=== PATIENT | male | born 1965 | race Caucasian/White ===

== ENCOUNTER 2020-08-21 08:51 | Outpatient (REF) | payer MEDICAID, SELFPAY ==
[2020-08-21 11:25] LABS: Hematocrit 46.3 % (42-52); Hemoglobin 15.3 g/dl (14.0-18.0); Mean Corpuscular Hemoglobin 29.2 pg (27.0-33.0); Mean Corpuscular Volume 88.4 fL (80-98); Mean Platelet Volume 10.5 fL (9.4-12.4); Platelet Count 277 X10*3/uL (160-400); Red Blood Count 5.24 X10*6/uL (4.60-5.80); Red Cell Distribution Width 12.5 % (11.0-16.0); White Blood Count 7.9 X10*3/uL (4.8-10.8)
[2020-08-21 11:42] LABS: Estimated Average Glucose 111 mg/dL; Hemoglobin A1c % 5.5 %
[2020-08-21 12:10] LABS: Alanine Aminotransferase 49 U/L (0-40); Albumin Level 4.2 g/dL (3.5-5.0); Alkaline Phosphatase 73 U/L (39-117); Anion Gap 14 (12-20); Aspartate Amino Transferase 33 U/L (5-37); Bilirubin Total 0.6 mg/dL (0.0-1.0); Blood Urea Nitrogen 15 mg/dL (9-16); Calcium 9.2 mg/dL (8.4-10.2); Carbon Dioxide 27 mmol/L (22-29); Chloride 103 mmol/L (96-108); Cholesterol 190 mg/dL; Estimated Glomerular Filt Rate > 60; Glucose Fasting 86 mg/dL (60-99); HDL Cholesterol 44 mg/dL; LDL Cholesterol Calculated 120 mg/dl; Potassium 4.6 mmol/L (3.3-5.1); Sodium 139 mmol/L (135-145); Total Protein 7.5 g/dL (6.5-8.0); Triglycerides 130 mg/dL
[2020-08-21 12:22] LABS: Creatinine Urine 160.35 mg/dL; Microalbum/Creatinine Ratio Ur 24.3 ug/mg cr
[2020-08-21 12:35] LABS: Vitamin B12 641 pg/mL (200-900)
[2020-08-21 12:40] LABS: Free T4 (Free Thyroxine) 0.88 ng/dL (0.71-1.85); Prostate Specific Antigen 0.21 ng/mL (<0.05-4.0); Thyroid Stimulating Hormone 1.54 uIU/mL (0.32-4.0); Vitamin D 25-OH Total 33.4 ng/mL (>30)
== END 2020-08-21 08:52 | disposition home or self-care (01) ==
LOC: HO.MANLDS 08:51
PROVIDERS: PCP Internal Medicine; Visit Provider Internal Medicine
DX: I10 Essential (primary) hypertension (principal); E11.9 Type 2 diabetes mellitus without complications; R53.83 Other fatigue; Z12.5 Encounter for screening for malignant neoplasm of prostate
CPT/HCPCS: 36415; 80053; 80061; 82043; 82306; 82533; 82607; 83036; 84153; 84439; 84443; 85027

== ENCOUNTER 2021-06-18 10:19 | Outpatient (REF) | payer MEDICAID, SELFPAY ==
[2021-06-18 14:15] LABS: Alanine Aminotransferase 53 U/L (0-40); Albumin Level 4.2 g/dL (3.5-5.0); Alkaline Phosphatase 72 U/L (39-117); Aspartate Amino Transferase 37 U/L (5-37); Bilirubin Direct 0.2 mg/dL (0.0-0.5); Bilirubin Total 0.7 mg/dL (0.0-1.0); Total Protein 7.9 g/dL (6.5-8.0)
== END 2021-06-18 10:20 | disposition home or self-care (01) ==
LOC: HO.MANLDS 10:19
PROVIDERS: PCP Internal Medicine; Visit Provider Internal Medicine
DX: B35.1 Tinea unguium (principal)
CPT/HCPCS: 36415; 80076

== ENCOUNTER 2022-01-14 14:28 | Outpatient (REF) | payer MEDICAID, SELFPAY ==
[2022-01-14 18:27] LABS: Alanine Aminotransferase 40 U/L (0-40); Albumin Level 4.4 g/dL (3.5-5.0); Alkaline Phosphatase 76 U/L (39-117); Anion Gap 18 (12-20); Aspartate Amino Transferase 33 U/L (5-37); Bilirubin Total 0.4 mg/dL (0.0-1.0); Blood Urea Nitrogen 15 mg/dL (9-16); Calcium 9.2 mg/dL (8.4-10.2); Carbon Dioxide 26 mmol/L (22-29); Chloride 102 mmol/L (96-108); Estimated Average Glucose 105 mg/dL; Estimated Glomerular Filt Rate > 60; Glucose Random 75 mg/dL (60-115); Hemoglobin A1c % 5.3 %; Sodium 142 mmol/L (135-145)
[2022-01-19 10:46] LABS: Testosterone, Total 135 ng/dL (250-1100)
== END 2022-01-14 14:29 | disposition home or self-care (01) ==
LOC: HO.MANLDS 14:28
PROVIDERS: Visit Provider Internal Medicine
DX: R60.0 Localized edema (principal); R53.83 Other fatigue; E11.9 Type 2 diabetes mellitus without complications
CPT/HCPCS: 36415; 80053; 83036; 84403

== ENCOUNTER 2022-01-26 14:07 | Outpatient (REF) | payer MEDICAID, SELFPAY ==
[2022-01-26 18:22] LABS: Prostate Specific Antigen 0.25 ng/mL (<0.05-4.0)
[2022-01-27 23:11] LABS: Follicle Stimulating Hormone 3.4 mIU/mL (1.6-8.0); Lutenizing Hormone 2.9 mIU/mL (1.5-9.3)
[2022-02-03 11:57] LABS: Testosterone, Total 139 ng/dL (250-1100)
== END 2022-01-26 14:08 | disposition home or self-care (01) ==
LOC: HO.MANLDS 14:07
PROVIDERS: Visit Provider Internal Medicine
DX: Z12.5 Encounter for screening for malignant neoplasm of prostate (principal); R79.89 Other specified abnormal findings of blood chemistry
CPT/HCPCS: 36415; 83001; 83002; 84153; 84402; 84403

== ENCOUNTER 2022-04-05 09:13 | Outpatient (REF) | payer MEDICAID, SELFPAY ==
[2022-04-05 11:59] LABS: Estimated Average Glucose 108 mg/dL; Hemoglobin A1C 143.0571 umol/L; Hemoglobin A1c % 5.4 %
[2022-04-05 12:14] LABS: Creatinine Urine 235.94 mg/dL; Microalbum/Creatinine Ratio Ur 6.7 ug/mg cr
[2022-04-05 12:16] LABS: Cholesterol 202 mg/dL; HDL Cholesterol 46 mg/dL; LDL Cholesterol Calculated 125 mg/dl; Triglycerides 155 mg/dL
[2022-04-10 10:19] LABS: Testosterone, Total 257 ng/dL (250-1100)
== END 2022-04-05 09:14 | disposition home or self-care (01) ==
LOC: HO.MANLDS 09:13
PROVIDERS: Visit Provider Internal Medicine
DX: E11.9 Type 2 diabetes mellitus without complications (principal); R79.89 Other specified abnormal findings of blood chemistry
CPT/HCPCS: 36415; 80061; 82043; 83036; 84403

== ENCOUNTER 2022-07-25 07:53 | Outpatient (REF) | payer MEDICAID, SELFPAY ==
[2022-07-25 11:47] LABS: Estimated Average Glucose 108 mg/dL; Hemoglobin A1C 149.7755 umol/L; Hemoglobin A1c % 5.4 %
[2022-07-25 12:22] LABS: Magnesium 1.8 mg/dL (1.6-2.6); Uric Acid 7.6 mg/dL (3.4-7.0)
[2022-07-25 12:23] LABS: Erythrocyte Sedimentation Rate 11 MM/HR (0-15)
[2022-07-25 12:35] LABS: Creatinine Urine 209.69 mg/dL; Microalbum/Creatinine Ratio Ur 16.2 ug/mg cr
[2022-07-25 12:38] LABS: Vitamin B12 676 pg/mL (200-900); Vitamin D 25-OH Total 46.5 ng/mL (>30)
[2022-07-26 17:59] LABS: Lyme Abs Screen <0.90 index
[2022-07-29 16:09] LABS: Vitamin D 25-OH, D2 <4 ng/mL; Vitamin D 25-OH, D3 32 ng/mL; Vitamin D 25-OH, Total 32 ng/mL (30-100)
[2022-07-31 12:50] LABS: Testosterone, Total 249 ng/dL (250-1100)
== END 2022-07-25 07:54 | disposition home or self-care (01) ==
LOC: HO.MANLDS 07:53
PROVIDERS: Visit Provider Internal Medicine
DX: E11.9 Type 2 diabetes mellitus without complications (principal); M25.50 Pain in unspecified joint; R53.83 Other fatigue
CPT/HCPCS: 36415; 82043; 82306; 82607; 83036; 83735; 84403; 84550; 85652; 86617; 86618

== ENCOUNTER 2022-11-16 12:19 | Outpatient (REF) | payer MEDICAID, SELFPAY ==
[2022-11-18 06:49] LABS: DHEA Sulfate 312 mcg/dL (32-279)
== END 2022-11-16 12:20 | disposition home or self-care (01) ==
LOC: HO.MANLDS 12:19
PROVIDERS: Visit Provider Internal Medicine
DX: R79.89 Other specified abnormal findings of blood chemistry (principal)
CPT/HCPCS: 36415; 82627; 84402; 84403

== ENCOUNTER 2023-01-02 09:57 | Outpatient (REF) | payer MEDICAID, SELFPAY ==
[2023-01-06 13:37] LABS: Testosterone, Total 216 ng/dL (250-1100)
== END 2023-01-02 09:58 | disposition home or self-care (01) ==
LOC: HO.MANLDS 09:57
PROVIDERS: Visit Provider Internal Medicine
DX: R79.89 Other specified abnormal findings of blood chemistry (principal)
CPT/HCPCS: 36415; 84403

== ENCOUNTER 2023-01-27 11:32 | Outpatient (REF) | payer MEDICAID, SELFPAY ==
[2023-02-01 12:52] LABS: Testosterone, Total 209 ng/dL (250-1100)
== END 2023-01-27 11:33 | disposition home or self-care (01) ==
LOC: HO.MANLDS 11:32
PROVIDERS: Visit Provider Internal Medicine
DX: R79.89 Other specified abnormal findings of blood chemistry (principal)
CPT/HCPCS: 36415; 84403

== ENCOUNTER 2023-06-14 11:20 | Outpatient (REF) | payer MEDICAID, SELFPAY ==
[2023-06-14 13:10] LABS: MANUAL DIFF FLAG NO
[2023-06-14 13:31] LABS: Basophils Absolute Auto 0.1 X10*3/uL (0.0-0.2); Basophils Percent Auto 0.6 % (0-2); Eosinophils Absolute Auto 0.1 X10*3/uL (0.0-0.4); Eosinophils Percent Auto 0.6 % (0-4); Hematocrit 46.1 % (42.0-52.0); Hemoglobin 15.7 g/dl (14.0-18.0); Imm Gran Abs Auto 0.15 X10*3/uL (0.00-0.03); Imm Gran Pct Auto 1.6 % (0.0-0.4); Lymphocytes Absolute Auto 2.6 X10*3/uL (1.2-4.9); Lymphocytes Percent Auto 28.2 % (20-40); Mean Corpuscular HGB Conc 34.1 g/dl (31.0-36.0); Mean Corpuscular Hemoglobin 29.2 pg (27.0-33.0); Mean Corpuscular Volume 85.8 fL (80.0-98.0); Mean Platelet Volume 9.9 fL (9.4-12.4); Monocytes Absolute Auto 0.7 X10*3/uL (0.1-1.2); Monocytes Percent Auto 7.2 % (2-11); Neutrophils Absolute Auto 5.7 x10*3/uL (2.0-8.3); Neutrophils Percent Auto 61.8 % (45-73); Platelet Count 382 X10*3/uL (160-400); Red Blood Count 5.37 X10*6/uL (4.60-5.80); Red Cell Distribution Width 13.2 % (11.0-16.0); White Blood Count 9.3 X10*3/uL (4.8-10.8)
[2023-06-14 14:01] LABS: Alanine Aminotransferase 50 U/L (0-40); Albumin Level 4.3 g/dL (3.5-5.0); Alkaline Phosphatase 65 U/L (39-117); Anion Gap 13 (12-20); Aspartate Amino Transferase 32 U/L (5-37); Bilirubin Total 0.4 mg/dL (0.0-1.0); Blood Urea Nitrogen 20 mg/dL (9-16); Calcium 9.8 mg/dL (8.4-10.2); Carbon Dioxide 23 mmol/L (22-29); Chloride 105 mmol/L (96-108); Estimated Glomerular Filt Rate > 60; Glucose Random 113 mg/dL (60-115); Magnesium 2.1 mg/dL (1.6-2.6); Potassium 4.7 mmol/L (3.3-5.1); Sodium 136 mmol/L (135-145); Total Protein 8.3 g/dL (6.5-8.0)
[2023-06-14 14:03] LABS: Free T4 (Free Thyroxine) 0.87 ng/dL (0.71-1.85); Thyroid Stimulating Hormone 0.79 uIU/mL (0.32-4.0)
[2023-06-14 14:38] LABS: Folate 9.7 ng/mL (> or = 4.0); Vitamin B12 694 pg/mL (200-900)
[2023-06-14 14:59] LABS: Estimated Average Glucose 103 mg/dL; Hemoglobin A1C 137.3863 umol/L; Hemoglobin A1c % 5.2 % (<6.0)
[2023-06-21 14:48] LABS: Testosterone, Free 31.1 pg/mL (35.0-155.0); Testosterone, Total 251 ng/dL (250-1100)
== END 2023-06-14 11:21 | disposition home or self-care (01) ==
LOC: HO.MANLDS 11:20
PROVIDERS: Visit Provider Internal Medicine
DX: I10 Essential (primary) hypertension (principal); R53.83 Other fatigue; E11.9 Type 2 diabetes mellitus without complications
CPT/HCPCS: 36415; 80053; 82607; 82746; 83036; 83735; 84402; 84403; 84439; 84443; 85025

== ENCOUNTER 2023-07-26 15:49 | Outpatient (REF) | payer MEDICAID, SELFPAY ==
[2023-07-28 18:49] LABS: Lyme Abs Screen <0.90 index
== END 2023-07-26 15:50 | disposition home or self-care (01) ==
LOC: HO.MANLDS 15:49
PROVIDERS: Visit Provider Physician Assistant
DX: T14.8XXA Other injury of unspecified body region, initial encounter (principal); W57.XXXA Bitten or stung by nonvenomous insect and other nonvenomous arthropods, initial encounter
CPT/HCPCS: 36415; 86617; 86618

== ENCOUNTER 2023-10-28 15:31 | Emergency (ER) | payer MEDICAID, SELFPAY ==
--- NOTE | ~2023-10-28 | CT_ITS ---
EXAMINATION: CT ABDOMEN AND PELVIS WITH CONTRAST CLINICAL INFORMATION: Diffuse abdominal pain. COMPARISON: None available. TECHNIQUE: Multidetector volumetric images were obtained from the superior aspect of the liver through the pubic symphysis following administration 85 mL of Omnipaque 350 intravenous contrast. Sagittal and coronal reformatted images were obtained on the technologist's workstation. Oral contrast: Yes This CT examination was performed using dose optimization techniques as appropriate, variously including the following: *Automated exposure control *Adjustment of mA and/or kV according to patient size (this includes techniques or standardized protocols for targeted exams where dose is matched to indication/reason for exam; i.e. extremities or head) *Use of iterative reconstruction technique DLP: 868 mGy-cm FINDINGS: LUNG BASES: The visualized lung bases are unremarkable. LIVER, GALLBLADDER, AND BILIARY TREE: The liver is normal in size, shape, and attenuation. No focal hepatic lesion or biliary ductal dilatation is present. There is a small 2 mm calcification at the margin of the gallbladder fossa which appears to be within the hepatic parenchyma, possibly small granuloma. No appreciable cholelithiasis. The gallbladder is otherwise normal in appearance without gallbladder wall thickening pericholecystic inflammatory changes. PANCREAS: Unremarkable. SPLEEN: Unremarkable. ADRENAL GLANDS: Unremarkable. KIDNEYS AND URETERS: The kidneys are normal in size, shape, and attenuation. No hydronephrosis, hydroureter, or calculi seen. No perinephric stranding. Small subcentimeter foci of cortical hypoattenuation kidneys are too small to characterize, though statistically favored to correspond to simple cysts. No recommended imaging follow-up. BLADDER: Unremarkable. GASTROINTESTINAL TRACT: Stomach, small bowel, and colon are normal in caliber. No bowel wall thickening or surrounding inflammatory changes. Appendix is normal. No intraperitoneal free fluid or free air. ABDOMINAL WALL: Status post umbilical herniorrhaphy with mesh. No bowel involvement. LYMPH NODES: Normal. VASCULAR: Atherosclerotic calcifications are present in the abdominal aorta and iliac arteries. No aneurysmal dilatation. PELVIC VISCERA: The prostate and seminal vesicles are unremarkable. OSSEOUS STRUCTURES: Mild multilevel degenerative disc disease and more pronounced facet arthropathy in the lower lumbar spine. No fractures. Mild osteoarthritis in both hips and SI joints. Enthesopathic spurs at the iliac crests. CT/CT abdomen pelvis w IV con IMPRESSION: No acute intra-abdominal or intrapelvic abnormalities. Fleischner guidelines were followed.
--- NOTE | ~2023-10-28 | XR_ITS ---
EXAMINATION: XR ABDOMEN COMPLETE CLINICAL INDICATION: Constipation COMPARISON: None available. TECHNIQUE: AP supine pelvis radiograph and 2 AP supine radiographs of the abdomen FINDINGS: Scattered bowel gas is noted nondistended small and large bowel segments. No gross free intraperitoneal gas identified. No definitive urolithiasis visualized. Moderate multilevel facet and endplate hypertrophic changes of the lower lumbar spine. Visualized lung bases are clear. Scattered pelvic phleboliths visualized. XR/XR abdomen min 2V IMPRESSION: Normal bowel gas pattern. No evidence of intestinal obstruction.
--- NOTE | 2023-10-28 15:58 | ED_ITS ---
HPI - Abdominal Pain General Chief Complaint: Abdominal Pain Stated Complaint: abd pressure/losing weight/constipated Time Seen by Provider: 10/28/23 17:14 Source: patient, family and RN notes reviewed Mode of arrival: ambulatory Limitations: no limitations History of Present Illness ED Provider: Rossi MARIE narrative: 58-year-old male presents for evaluation of multiple complaints. He reports he has felt constipated for 2 months now. He reports tremors to his abdomen. He reports decreased sleep since August as well Patient reports that he has lost 80 lb since April, 6 months ago He reports he has been seen at [facility] and had CT scan does abdomen on September 13. He also had an MRI if his kidney due to a cyst that was seen He has an appointment with GI coming up on November 12. He has tried laxatives and a Fleet enema at home without improvement in his symptoms Patient also complains he has not been sleeping well No other complaints or concerns at this time Related Data Previous Rx's ?Medication ?Instructions ?Recorded peg 3350-electrolytes 236 240 ml PO Q10M PRN constipation 10/28/23 gram-22.74 gram-6.74 gram-5.86 #4,000 mL gram solution (Golytely) polyethylene glycol 3350 17 17 g PO DAILY 2 weeks #238 grams 10/28/23 gram/dose oral powder (Miralax) sodium phosphates 19 gram-7 230 ml IN ONCE #230 mL 10/28/23 gram/197 mL enema (Fleet Enema Extra) Allergies Allergy/AdvReac Type Severity Reaction Status Date / Time No Known Allergies Allergy Verified 10/28/23 16:01 Review of Systems Constitutional: Denies body ache(s), Denies chills, Denies fever(s) and Denies headache(s) Eyes: Denies blurry vision Denies vertigo, Denies dizziness and Denies headache(s) Cardiovascular: Denies chest pain and Denies dyspnea Respiratory: Denies cough and Denies dyspnea Gastrointestinal: Reports abdominal pain, Reports constipation, Reports GI cramping, Denies nausea and Denies vomiting Musculoskeletal: Denies back pain Skin/Breast: Denies rash Denies vertigo, Denies dizziness and Denies headache(s) PMFSH Social History Social History Advance Directives: No Advance Directives Information Provided: No Do you have a plan to hurt others: No Plan Physical Exam ED Vital Signs: Vital Signs - 24 hr 10/28/23 15:59 10/28/23 16:25 10/28/23 17:55 Temperature 97.8 F 97.6 F 97.7 F Pulse Rate 80 75 78 Respiratory Rate 18 21 H 16 Blood Pressure 151/95 H 154/85 H 159/93 H Pulse Oximetry 99 97 99 Oxygen Delivery Method Room Air Room Air Room Air 10/28/23 18:58 10/28/23 21:31 10/28/23 23:15 Temperature 97.7 F 98.7 F 98.4 F Pulse Rate 80 64 64 Respiratory Rate 22 H 20 16 Blood Pressure 176/96 H 158/101 H 161/94 H Pulse Oximetry 98 98 97 Oxygen Delivery Method Room Air Room Air Room Air BMI result Body Mass Index 35.1 Const General: healthy appearing, comfortable, no acute distress, alert and awake Nutritional Appearance: well nourished Orientation/consciousness: patient oriented x3 HENMT Head: Yes normocephalic and Yes atraumatic Eyes Eyelids: Yes eyelids normal Conjunctivae: conjunctivae normal Sclerae: sclerae normal Corneas: corneas normal Pupils: Equal, round and reactive pupils present EOM: EOMs intact bilaterally Neck Neck: Yes full ROM Resp Effort & Inspection: normal respiratory effort, able to speak in complete sentences and not labored GI Other: Soft, obese, nontender abdomen Inspection: No distended Palpation (GI): Soft to palpation, not firm, nontender, no guarding and not rigid Auscultation: normoactive bowel sounds Skin General skin exam: elasticity normal Neuro General: patient oriented x3 Cranial nerves: Yes Equal, round and reactive pupils present and Yes Bilaterally intact EOM present Cognition (Neuro): normal cognition Extrem Other: Moving all extremities well without any obvious deformities Course Course Course Narrative: This is a Rapid Medical Exam performed in triage by Keena Flores PA-C. Full HPI, ROS and PE to be performed by primary ED provider. 58 year-old M w/ PMHx presenting to the ED c/o bowels stopped working 08/24 w/constipation & weight loss (80 lbs since April) unintentionally. Last BM 1 week ago, is still passing gas but w/difficulty. reports abdominal pain/bloating, w/nausea with abdominal spasming. States has been seen at [facility] (3wks ago) & [facility] for same sx had w/u and CT which were negative PE: abdomen soft w/RUQ ttp. +appreciable abdominal spasming in triage Plan: Labs, UA, KUB Reevaluation(s) Reevaluation #1: Patient change his mind opted to proceed with CT scan with oral contrast Time: 18:36 Medical Decision Making Medical Decision Making [facility] Narrative: 58-year-old male presents for evaluation of constipation, weight loss and insomnia. Patient's physical exam is reassuring, he is nontender, nondistended. His vital signs are stable, his labs show no concerning abnormalities. He had an x-ray that shows moderate constipation but nonobstructive bowel gas pattern. I recommended CT scan of the abdomen pelvis with oral contrast. The patient is reluctant to have this performed. He seems somewhat paranoid about drinking oral contrast. However he has no pain, so infectious processes less likely, he is not obstructed despite his constipation. He does not wish to have the CT scan performed, he does have GI follow-up already scheduled and we can discharge the patient with laxatives and bowel regimen Differential Diagnosis Differential Diagnoses: The differential diagnosis associated with the presentation includes Constipation Small-bowel obstruction Colonic mass Dehydration Anxiety Lab Data [facility] Lab Attestation statement: I reviewed the patient's lab results. Please see medical decision making above 10/28/23 16:32 10/28/23 16:32 Labs: Lab Results 10/28/23 10/28/23 Range/Units 16:16 16:32 WBC 8.1 (4.8-10.8) X10*3/uL RBC 5.00 (4.60-5.80) X10*6/uL Hgb 15.2 (14.0-18.0) g/dl Hct 42.8 (42.0-52.0) % MCV 85.6 (80.0-98.0) fL MCH 30.4 (27.0-33.0) pg MCHC 35.5 (31.0-36.0) g/dl RDW 13.1 (11.0-16.0) % Plt Count 269 D (160-400) X10*3/uL MPV 9.6 (9.4-12.4) fL Immature Gran % (Auto) 0.4 (0.0-0.4) % Neut % (Auto) 53.9 (45-73) % Lymph % (Auto) 31.4 (20-40) % [place] % (Auto) 10.7 (2-11) % Eos % (Auto) 3.0 (0-4) % Baso % (Auto) 0.6 (0-2) % Lymph # (Auto) 2.6 (1.2-4.9) X10*3/uL [place] # (Auto) 0.9 (0.1-1.2) X10*3/uL Eos # (Auto) 0.2 (0.0-0.4) X10*3/uL Baso # (Auto) 0.1 (0.0-0.2) X10*3/uL Abs Immat Gran (auto) 0.03 (0.00-0.03) X10*3/uL Absolute Neuts (auto) 4.4 (2.0-8.3) x10*3/uL Absolute Nucleated RBC 0.000 (0.0-0.012) X10*3/uL Nucleated RBC % (auto) 0.0 (0.0-0.2) /100WBC Sodium 136 (135-145) mmol/L Potassium 3.9 (3.3-5.1) mmol/L Chloride 102 (96-108) mmol/L Carbon Dioxide 21 L (22-29) mmol/L Anion Gap 17 (12-20) BUN 12 (9-16) mg/dL Creatinine 1.09 (0.5-1.4) mg/dL Estim Creat Clear Calc 102.1 Estimated GFR > 60 Random Glucose 88 (60-115) mg/dL Calcium 9.9 (8.4-10.2) mg/dL Magnesium 2.0 (1.6-2.6) mg/dL Total Bilirubin 0.6 (0.0-1.0) mg/dL Direct Bilirubin 0.2 (0.0-0.5) mg/dL AST 21 (5-37) U/L ALT 16 (0-40) U/L Alkaline Phosphatase 63 (39-117) U/L Total Protein 7.6 (6.5-8.0) g/dL Albumin 4.3 (3.5-5.0) g/dL Lipase 14 (8-78) U/L Urine Color Yellow Urine Appearance Clear Urine pH 5.5 (5.0-9.0) Ur Specific [place] 1.015 (1.005-1.025) Urine Protein Negative (Neg-Trace) mg/dL Urine Glucose (UA) Negative (Negative) mg/dL Urine Ketones 15 (Negative) mg/dL Urine Blood Negative (Negative) Urine Nitrite Negative (Negative) Ur Leukocyte Esterase Negative (Negative) Independent Interpretation I performed an independent interpretation of an: Plain X-Ray (Moderate constipation without obstruction) Radiology Impression Discussion of test interpretation with radiology: I have reviewed the radiologist's reading. Radiologist Impression: XR/XR abdomen min 2V IMPRESSION: Normal bowel gas pattern. No evidence of intestinal obstruction. CT/CT abdomen pelvis w IV con IMPRESSION: No acute intra-abdominal or intrapelvic abnormalities. Fleischner guidelines were followed. Medications Administered Discontinued Medications Generic Name Dose Route Start Last Admin Trade Name Freq PRN Reason Stop Dose Admin Diatrizoate Meglum/Diatrizoate Sod 30 ml 10/28/23 19:07 10/28/23 19:08 Diatrizoate Meglumine, Sodium 30 Ml Solution PO 10/28/23 19:08 30 ml ONCE ONE Administration Iohexol 85 ml 10/28/23 20:57 10/28/23 20:58 Iohexol 350 Mg/Ml 100 Ml Infus..Btl IV 10/28/23 20:58 85 ml ONCE ONE Administration Discharge Plan Discharge Clinical Impression: Constipation Patient Disposition: Home, Self-Care Instructions: Constipation (ED), High Fiber Diet (ED) Additional Instructions: Your blood work did not show any concerning abnormalities. Your x-ray showed constipation without evidence of obstruction. I recommend that you increase fluid intake, increase fiber intake in your diet. I recommend that you take MiraLax every night for the next 2 weeks. Take lactulose, you may drink 8 oz every 5 minutes until you start to have bowel movements. You should discontinue lactulose once your stool becomes clear Follow-up with your GI doctor as planned, return for new or worsening symptoms Prescriptions: New Fleet Enema Extra 19-7 gram/197 mL enema 230 ml IN ONCE Qty: 230 0RF polyethylene glycol 3350 [Miralax] 17 gram/dose powder 17 g PO DAILY 14 Days Qty: 238 0RF peg 3350-electrolytes [Golytely] 236-22.74-6.74 -5.86 gram recon soln 240 ml PO Q10M PRN (Reason: constipation) Qty: 4000 0RF Rx Instructions: until fecal effluent is clear Print Language: Bots[place]an
[2023-10-28 15:59] VITALS: BP 151/95; PULSE 80; RESP 18; TEMP 36.6; O2SAT 99; BMI 35.1
[2023-10-28 16:25] VITALS: BP 154/85; PULSE 75; RESP 21; TEMP 36.4; O2SAT 97
[2023-10-28 16:37] LABS: MANUAL DIFF FLAG NO
[2023-10-28 16:38] LABS: Basophils Absolute Auto 0.1 X10*3/uL (0.0-0.2); Basophils Percent Auto 0.6 % (0-2); Eosinophils Absolute Auto 0.2 X10*3/uL (0.0-0.4); Hematocrit 42.8 % (42.0-52.0); Hemoglobin 15.2 g/dl (14.0-18.0); Imm Gran Abs Auto 0.03 X10*3/uL (0.00-0.03); Imm Gran Pct Auto 0.4 % (0.0-0.4); Lymphocytes Absolute Auto 2.6 X10*3/uL (1.2-4.9); Lymphocytes Percent Auto 31.4 % (20-40); Mean Corpuscular HGB Conc 35.5 g/dl (31.0-36.0); Mean Corpuscular Hemoglobin 30.4 pg (27.0-33.0); Mean Corpuscular Volume 85.6 fL (80.0-98.0); Mean Platelet Volume 9.6 fL (9.4-12.4); Monocytes Absolute Auto 0.9 X10*3/uL (0.1-1.2); Monocytes Percent Auto 10.7 % (2-11); Neutrophils Absolute Auto 4.4 x10*3/uL (2.0-8.3); Neutrophils Percent Auto 53.9 % (45-73); Platelet Count 269 X10*3/uL (160-400); Red Cell Distribution Width 13.1 % (11.0-16.0); White Blood Count 8.1 X10*3/uL (4.8-10.8)
[2023-10-28 16:54] LABS: Alanine Aminotransferase 16 U/L (0-40); Albumin Level 4.3 g/dL (3.5-5.0); Alkaline Phosphatase 63 U/L (39-117); Anion Gap 17 (12-20); Aspartate Amino Transferase 21 U/L (5-37); Bilirubin Direct 0.2 mg/dL (0.0-0.5); Bilirubin Total 0.6 mg/dL (0.0-1.0); Blood Urea Nitrogen 12 mg/dL (9-16); Calcium 9.9 mg/dL (8.4-10.2); Carbon Dioxide 21 mmol/L (22-29); Chloride 102 mmol/L (96-108); Creatinine Clr Calc Pharmacy 102.1; Estimated Glomerular Filt Rate > 60; Glucose Random 88 mg/dL (60-115); Lipase 14 U/L (8-78); Potassium 3.9 mmol/L (3.3-5.1); Sodium 136 mmol/L (135-145); Total Protein 7.6 g/dL (6.5-8.0)
--- NOTE | 2023-10-28 17:03 | PC.NURSE ---
Addendum entered by Viridiana Rosas LPN 10/28/23 17:13: Pt also reports that he knows what is causing his symptoms and erratic movement, sts that he was told by his medium that he is infected with a toxic microbe pt was unable to elaborate further. Original Note: pt presents to the exam room with mother at bedside. pt reports decreased frequency/quantity of BMs since August 24. pt sts that he is able to have bowel movements if he forces them . He reports that he is able to pass some gas . Pt describes pain as burning, pressure in nature, 2/10 pain scale. Pt sts that he noticed some changes in bowel patterns after starting HRT. pt sts he is no longer taking these hormones- per claims history pt was using topical testosterone, last prescribed 03/03/23. [facility] (unsure of exact date). Of note, pt abdomen can be seen moving erratically, which pt sts is disturbing his sleep. 20G IV placed in L- medial AC, labs pending, pt to have XR of abdomen and pelvis. care ongoing
[2023-10-28 17:12] LABS: Appearance Urine Clear; Color Urine Yellow; Glucose Urine UA Negative (Negative); Leukocyte Esterase Urine Negative (Negative); Nitrite Urine Negative (Negative); PH 5.5 (5.0-9.0); Specific Gravity - Urine 1.015 (1.005-1.025); Urine Blood Negative (Negative); Urine Ketones 15 mg/dL (Negative); Urine Protein Negative (Neg-Trace)
[2023-10-28 17:55] VITALS: BP 159/93; PULSE 78; RESP 16; TEMP 36.5; O2SAT 99
[2023-10-28 18:58] VITALS: BP 176/96; PULSE 80; RESP 22; TEMP 36.5; O2SAT 98
[2023-10-28] MEDS: Diatrizoate Meglumine, Sodium 30 ML SOLUTION PO (19:08)
[2023-10-28] MEDS: iohexoL 350 MG/ML 100 ML INFUS..BTL 85 ML IV (20:58)
[2023-10-28 21:31] VITALS: BP 158/101; PULSE 64; RESP 20; TEMP 37.1; O2SAT 98
[2023-10-28 23:15] VITALS: BP 161/94; PULSE 64; RESP 16; TEMP 36.9; O2SAT 97
[2023-10-29 06:58] VITALS: BP 161/94; PULSE 64; RESP 16; TEMP 36.9; O2SAT 97
== END 2023-10-29 | disposition home or self-care (01) ==
PROVIDERS: Physician Assistant; Emergency Provider Emergency Medicine; PCP Internal Medicine
DX: K59.00 Constipation, unspecified (principal); R10.11 Right upper quadrant pain
CPT/HCPCS: 36415; 74019; 74177; 80048; 80076; 81003; 83690; 83735; 85025; 99284; Q9967

== ENCOUNTER 2024-09-03 13:56 | Emergency (ER) | payer MEDICAID, SELFPAY ==
--- NOTE | ~2024-09-03 | XR_ITS ---
CLINICAL HISTORY: pain --- Additional Notes or Special Instructions: constipation 1 view abdomen Comparison: None Findings: Low lung volumes with mild bibasilar atelectasis/pneumonitis of the partially imaged lung bases. Likely mild cardiomegaly. No small bowel dilatation or small bowel obstruction in the imaged abdomen. Change in caliber of the partly gaseous distended large intestine of the favored to represent imaged sigmoid colon in the midabdomen. Otherwise, moderate stool burden, particularly distally. Phleboliths are noted in the pelvis. Degenerative changes include imaged hips and imaged spine bifrontal radiographs. Also likely enthesopathy including left iliac wing. IMPRESSION: 1. No small bowel obstruction. 2. Mild gaseous distention of imaged sigmoid colon this nonspecific by radiographs. 3. Mild bibasilar atelectasis. This document has been electronically signed by: Rico San MD on 09/03/2024 21:26:11
[2024-09-03 14:13] VITALS: BP 208/101; PULSE 75; RESP 18; TEMP 37.1; O2SAT 99; BMI 33.8
--- NOTE | 2024-09-03 14:14 | ECG_ITS ---
Test Reason : GP Blood Pressure : */* mmHG Vent. Rate : 74 BPM Atrial Rate : 74 BPM P-R Int : 138 ms QRS Dur : 74 ms QT Int : 368 ms P-R-T Axes : 12 9 32 degrees QTcB Int : 408 ms Normal sinus rhythm Normal ECG No previous ECGs available Referred By: Mike Richey Electronically Signed By: DAVE HOFFMAN
--- NOTE | 2024-09-03 14:15 | ED_ITS ---
HPI - General Adult General Chief complaint: General Medical Stated complaint: Says lot of symptoms? Time Seen by Provider: 09/03/24 20:39 Source: patient Limitations: no limitations History of Present Illness ED Provider: Tashia Mendez PA-C HPI narrative: 59-year-old male with a history of depression and constipation, presents with numerous complaints that have been ongoing for 1-1/2 years. Patient states he continues to have difficulty having regular bowel movements. He complains that he can not see well, he has ringing in his ears, he has a insomnia, he feels as if his cognition is declining, he has dry mouth with facial flushing, intermittent bilateral shoulder pain, vague nausea and abdominal discomfort that has generalized, ?my bones feel thinner?, to name a few of his concerns. Patient also thinks that he has an STD, specifically HIV and syphilis. To note, the patient was tested for HIV and was negative. In regard to his concerned for syphilis, the patient has never had any genital lesions, penile discharge, pain with urination, testicular pain/swelling or redness. The patient is also not sexually active. I asked the patient if he is suicidal, he denies. Related Data Previous Rx's ?Medication ?Instructions ?Recorded peg 3350-electrolytes 236 240 ml PO Q10M PRN constipation 10/28/23 gram-22.74 gram-6.74 gram-5.86 #4,000 mL gram solution (Golytely) polyethylene glycol 3350 17 17 g PO DAILY 2 weeks #238 grams 10/28/23 gram/dose oral powder (Miralax) sodium phosphates 19 gram-7 230 ml UT ONCE #230 mL 10/28/23 gram/197 mL enema (Fleet Enema Extra) Allergies Allergy/AdvReac Type Severity Reaction Status Date / Time No Known Allergies Allergy Verified 09/03/24 14:17 Physical Exam ED Vital Signs: Vital Signs - 24 hr 09/03/24 14:13 09/03/24 19:33 09/03/24 22:09 Temperature 98.8 F 98 F 97.8 F Pulse Rate 75 67 61 Respiratory Rate 18 18 18 Blood Pressure 208/101 H 182/99 H 174/83 H Pulse Oximetry 99 100 100 Oxygen Delivery Method Room Air Room Air Room Air BMI result Body Mass Index 33.8 Course Course Course Narrative: YUE, this is a rapid medical exam performed by Felix Richey please refer to primary provider for complete H&P- 59-year-old male presents for evaluation of multiple complaints. He reports a history of hypertension. He reports abdominal pain with constipation, insomnia, nausea and vomiting. He reports recent negative HIV testing but he is still concerned that he has HIV. Plan for labs Medical Decision Making Medical Decision Making MDM Narrative: 59-year-old male with a history of depression and constipation, presents with numerous complaints that have been ongoing for 1-1/2 years. Patient states he continues to have difficulty having regular bowel movements. He complains that he can not see well, he has ringing in his ears, he has a insomnia, he feels as if his cognition is declining, he has dry mouth with facial flushing, intermittent bilateral shoulder pain, vague nausea and abdominal discomfort that has generalized, ?my bones feel thinner?, to name a few of his concerns. Patient also thinks that he has an STD, specifically HIV and syphilis. To note, the patient was tested for HIV and was negative. In regard to his concerned for syphilis, the patient has never had any genital lesions, penile discharge, pain with urination, testicular pain/swelling or redness. The patient is also not sexually active. I asked the patient if he is suicidal, he denies. Problem: Depression and constipation History: Per patient I have considered the following differential diagnoses: SI, HI, decompensated psychiatric illness, drug/alcohol intoxication Plan: Patient is here with a wide range of complaints, all of which should be managed as an outpatient. The patient is here with the his mother, I do feel he has to be clinically depressed. I will be sending him with resources for outpatient counseling and therapy. He does not require an emergent care team consult, he is not suicidal. Basic screening labs including an ethanol and drug screen were obtained from triage, and a urinalysis, his labs are normal. Adding on a KUB to assess his stool burden. I have independently reviewed the following tests: Labs: No leukocytosis, not anemic, no electrolyte abnormality, U tox negative, ethanol negative, urine not infected KUB:IMPRESSION: 1. No small bowel obstruction. 2. Mild gaseous distention of imaged sigmoid colon this nonspecific by radiographs. 3. Mild bibasilar atelectasis. Lab Data 09/03/24 16:01 09/03/24 16:01 Labs: Lab Results 09/03/24 09/03/24 09/03/24 Range/Units 16:01 16:06 16:07 WBC 8.7 (4.8-10.8) X10*3/uL RBC 5.40 (4.60-5.80) X10*6/uL Hgb 16.2 (14.0-18.0) g/dl Hct 46.4 (42.0-52.0) % MCV 85.9 (80.0-98.0) fL MCH 30.0 (27.0-33.0) pg MCHC 34.9 (31.0-36.0) g/dl RDW 13.1 (11.0-16.0) % Plt Count 249 (160-400) X10*3/uL MPV 9.1 L (9.4-12.4) fL Immature Gran % (Auto) 0.3 (0.0-0.4) % Neut % (Auto) 53.5 (45-73) % Lymph % (Auto) 37.0 (20-40) % [place] % (Auto) 7.9 (2-11) % Eos % (Auto) 0.8 (0-4) % Baso % (Auto) 0.5 (0-2) % Lymph # (Auto) 3.2 (1.2-4.9) X10*3/uL [place] # (Auto) 0.7 (0.1-1.2) X10*3/uL Eos # (Auto) 0.1 (0.0-0.4) X10*3/uL Baso # (Auto) 0.0 (0.0-0.2) X10*3/uL Abs Immat Gran (auto) 0.03 (0.00-0.03) X10*3/uL Absolute Neuts (auto) 4.6 (2.0-8.3) x10*3/uL Absolute Nucleated RBC 0.000 (0.0-0.012) X10*3/uL Nucleated RBC % (auto) 0.0 (0.0-0.2) /100WBC Sodium 140 (135-145) mmol/L Potassium 4.6 (3.3-5.1) mmol/L Chloride 104 (96-108) mmol/L Carbon Dioxide 29 (22-29) mmol/L Anion Gap 12 (12-20) BUN 19 H (9-16) mg/dL Creatinine 0.93 (0.5-1.4) mg/dL Estim Creat Clear Calc 112.7 Estimated GFR > 60 Random Glucose 86 (60-115) mg/dL Calcium 9.4 (8.4-10.2) mg/dL Magnesium 2.0 (1.6-2.6) mg/dL Total Bilirubin 0.5 (0.0-1.0) mg/dL AST 22 (5-37) U/L ALT 23 (0-40) U/L Alkaline Phosphatase 71 (39-117) U/L Total Creatine Kinase 88 (38-174) U/L Troponin I High Sens < 2.7 (<3.5-35.0) ng/L Total Protein 7.6 (6.5-8.0) g/dL Albumin 4.5 (3.5-5.0) g/dL Lipase 27 (8-78) U/L TSH 1.67 (0.32-4.0) uIU/mL Urine Color Yellow Urine Appearance Clear Urine pH 6.5 (5.0-9.0) Ur Specific [place] 1.025 (1.005-1.025) Urine Protein Negative (Neg-Trace) mg/dL Urine Glucose (UA) Negative (Negative) mg/dL Urine Ketones Trace (Negative) mg/dL Urine Blood Negative (Negative) Urine Nitrite Negative (Negative) Ur Leukocyte Esterase Negative (Negative) Urine RBC 0-2 (0-2) /HPF Urine WBC 0-5 (0-5) /HPF Ur Squamous Epith Cells 0-2 (0-2) /HPF Urine Bacteria None Seen (None Seen) Hyaline Casts 0-2 (0-2) /LPF Urine Opiates Screen Not Detected (Not Detect) Ur Buprenorphine Scrn Not Detected (Not Detect) ng/mL Ur Oxycodone Screen Not Detected (Not Detect) ng/mL Urine Methadone Screen Not Detected (Not Detect) ng/mL Urine Fentanyl Screen Not Detected (Not Detect) Ur Barbiturates Screen Not Detected (Not Detect) Ur Phencyclidine Scrn Not Detected (Not Detect) Ur Amphetamines Screen Not Detected (Not Detect) U Benzodiazepines Scrn Not Detected (Not Detect) Urine Cocaine Screen Not Detected (Not Detect) U Marijuana (THC) Screen Not Detected (Not Detect) Ethyl Alcohol < 10 mg/dL Influenza Type A (PCR) NEGATIVE (Negative) Influenza Type B (PCR) NEGATIVE (Negative) RSV RNA Qual (PCR) NEGATIVE (Negative) SARS-CoV-2 RNA (RT-PCR) NEGATIVE (Negative) Discharge Plan Discharge Clinical Impression: Constipation Patient Disposition: Home, Self-Care Instructions: Constipation (ED) Additional Instructions: All of your screening labs including a cardiac enzyme and thyroid function were normal. You were tested for influenza RSV and COVID, the viral panel was negative. Your urine is not infected. We did a drug toxicology screen that was negative. The x-ray revealed that you are constipated. See home care instructions. Use [id number] Colace, this is a stool softener, twice a day. Purchase [id number] MiraLax, take it 4 to 5 times a day, until you begin having multiple large volume bowel movements. Once you have cleared your stool burden, you need to stay on a bowel regimen to help prevent constipation. Perhaps use the Colace once a day, in the MiraLax once a day. You need to follow up with your primary care provider for further outpatient workup, in regard to your numerous, Chronic medical complaints. I have also provided you with a list of outpatient resources for counseling and therapy, you were depression may be playing a role in all of your medical related complaints. Prescriptions: No Action Fleet Enema Extra 19-7 gram/197 mL enema 230 ml UT ONCE Qty: 230 0RF polyethylene glycol 3350 [Miralax] 17 gram/dose powder 17 g PO DAILY 14 Days Qty: 238 0RF peg 3350-electrolytes [Golytely] 236-22.74-6.74 -5.86 gram recon soln 240 ml PO Q10M PRN (Reason: constipation) Qty: 4000 0RF Rx Instructions: until fecal effluent is clear Interventions: ED Discharge Assessment Last Done: 09/03/24 22:55 Discharge Date/Time: 09/03/24 22:55 Print Language: Bangladeshi
[2024-09-03 16:07] LABS: MANUAL DIFF FLAG NO
[2024-09-03 16:08] LABS: Basophils Percent Auto 0.5 % (0-2); Eosinophils Absolute Auto 0.1 X10*3/uL (0.0-0.4); Eosinophils Percent Auto 0.8 % (0-4); Hematocrit 46.4 % (42.0-52.0); Hemoglobin 16.2 g/dl (14.0-18.0); Imm Gran Abs Auto 0.03 X10*3/uL (0.00-0.03); Imm Gran Pct Auto 0.3 % (0.0-0.4); Lymphocytes Absolute Auto 3.2 X10*3/uL (1.2-4.9); Mean Corpuscular HGB Conc 34.9 g/dl (31.0-36.0); Mean Corpuscular Volume 85.9 fL (80.0-98.0); Mean Platelet Volume 9.1 fL (9.4-12.4); Monocytes Absolute Auto 0.7 X10*3/uL (0.1-1.2); Monocytes Percent Auto 7.9 % (2-11); Neutrophils Absolute Auto 4.6 x10*3/uL (2.0-8.3); Neutrophils Percent Auto 53.5 % (45-73); Platelet Count 249 X10*3/uL (160-400); Red Cell Distribution Width 13.1 % (11.0-16.0); White Blood Count 8.7 X10*3/uL (4.8-10.8)
[2024-09-03 16:17] LABS: Appearance Urine Clear; Color Urine Yellow; Glucose Urine UA Negative (Negative); Leukocyte Esterase Urine Negative (Negative); Nitrite Urine Negative (Negative); PH 6.5 (5.0-9.0); Specific Gravity - Urine 1.025 (1.005-1.025); Urine Blood Negative (Negative); Urine Ketones Trace mg/dL (Negative); Urine Protein Negative (Neg-Trace)
[2024-09-03 16:22] LABS: Bacteria Urine None Seen (None Seen); Hyaline Casts Urine 0-2 /LPF (0-2); RBC Urine 0-2 /HPF (0-2); Squamous Epithelial Cell Urine 0-2 /HPF (0-2); WBC Urine 0-5 /HPF (0-5)
[2024-09-03 16:23] LABS: Amphetamine Screen Urine Not Detected (Not Detect); Barbiturates, Urine Not Detected (Not Detect); Benzodiazepines Screen Urine Not Detected (Not Detect); Buprenorphine Scr Not Detected (Not Detect); Cannabinoid Screen Urine Not Detected (Not Detect); Cocaine Screen Urine Not Detected (Not Detect); Fentanyl, urine Not Detected (Not Detect); Methadone Screen, Urine Not Detected (Not Detect); Opiate Screen Urine Not Detected (Not Detect); Oxycodone Screen Urine Not Detected (Not Detect); Phencyclidine Screen Urine Not Detected (Not Detect)
[2024-09-03 16:27] LABS: Ethanol < 10 mg/dL
[2024-09-03 16:43] LABS: Alanine Aminotransferase 23 U/L (0-40); Albumin Level 4.5 g/dL (3.5-5.0); Alkaline Phosphatase 71 U/L (39-117); Anion Gap 12 (12-20); Aspartate Amino Transferase 22 U/L (5-37); Bilirubin Total 0.5 mg/dL (0.0-1.0); Blood Urea Nitrogen 19 mg/dL (9-16); Calcium 9.4 mg/dL (8.4-10.2); Carbon Dioxide 29 mmol/L (22-29); Chloride 104 mmol/L (96-108); Creatinine Clr Calc Pharmacy 112.7; Estimated Glomerular Filt Rate > 60; Glucose Random 86 mg/dL (60-115); Influenza A PCR NEGATIVE (Negative); Influenza B PCR NEGATIVE (Negative); Lipase 27 U/L (8-78); Potassium 4.6 mmol/L (3.3-5.1); Resp Syncy Virus RNA Qual PCR NEGATIVE (Negative); SARS COV2 PCR INHOUSE NEGATIVE (Negative); Sodium 140 mmol/L (135-145); Total Protein 7.6 g/dL (6.5-8.0); Troponin-I High Sensitivity < 2.7 ng/L (<3.5-35.0)
[2024-09-03 16:51] LABS: TSH reflex Free T4 1.67 uIU/mL (0.32-4.0)
[2024-09-03 19:33] VITALS: BP 182/99; PULSE 67; RESP 18; TEMP 36.6; O2SAT 100
[2024-09-03 22:09] VITALS: BP 174/83; PULSE 61; RESP 18; TEMP 36.6; O2SAT 100
[2024-09-03 22:55] VITALS: BP 174/83; PULSE 61; RESP 18; TEMP 36.6; O2SAT 100
== END 2024-09-03 22:55 | disposition home or self-care (01) ==
PROVIDERS: Physician Assistant; Emergency Provider Emergency Medicine; PCP Internal Medicine
DX: K59.00 Constipation, unspecified (principal); F32.A Depression, unspecified; Z03.818 Encounter for observation for suspected exposure to other biological agents ruled out; Z79.899 Other long term (current) drug therapy
CPT/HCPCS: 0241U; 36415; 74018; 80053; 80307; 81001; 82550; 83690; 83735; 84443; 84484; 85025; 93005; 99284

== ENCOUNTER → 2024-09-03 14:14 | Outpatient (BNV) | payer MEDICAID, SELFPAY | PROVIDERS: Emergency Provider Emergency Medicine; PCP Internal Medicine; Visit Provider Internal Medicine | DX: Z13.6 Encounter for screening for cardiovascular disorders (principal) | CPT/HCPCS: 93010 ==

== ENCOUNTER → 2024-09-03 20:42 | Outpatient (BNV) | payer MEDICAID, SELFPAY | PROVIDERS: Emergency Provider Emergency Medicine; PCP Internal Medicine; Visit Provider Radiology Neuroradiology | DX: R10.9 Unspecified abdominal pain (principal) | CPT/HCPCS: 74018 ==

== ENCOUNTER 2024-09-06 12:06 | Outpatient (REF) | payer MEDICAID, SELFPAY ==
--- OUTSIDE RECORDS SUMMARY | 2024-09-06 12:32 | XMS_ITS | Continuity of Care Document ---
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 MUST MEET 2 OUT OF 3 ELEMENTS: PROBLEMS, DATA OR RISK ELEMENT 1: PROBLEMS ADDRESSED 1 OR MORE CHRONIC ILLNESS WITH EXACERBATION OR 2 OR MORE STABLE CHRONIC ILLNESSES OR 1 UNDIAGNOSED NEW PROBLEM OR 1 ACUTE ILLNESS W/SYMPTOMS OR 1 ACUTE COMPLICATED INJURY ELEMENT 2: DATA MUST MEET 1 OF 3 CATEGORIES CATEGORY 1: REVIEW OF PRIOR EXTERNAL NOTES, REVIEW OF RESULTS, ORDERING OF EACH TEST, ASSESSMENT REQUIRING INDEPENDENT HISTORIAN OR CATEGORY 2: INDEPENDENT INTERPRETATION OF TESTS BY ANOTHER PHYSICIAN OR SPECIALIST OR CATEGORY 3: DISCUSSION OF MGT OR TEST INTERPRETATION W/EXTERNAL PHYSICIAN OR SPECIALIST ELEMENT 3: RISK RISK OF COMPLICATIONS AND/OR MORBIDITY OR MORTALITY OF PATIENT MANAGEMENT PROVIDER MUST THOROUGHLY DOCUMENT EACH ELEMENT THAT IS COVERED Not available 09/06/2024 12:08:22 Plan of Treatment Reminders Order Date Submit Date Provider Last Modified By Organization Details Last Modified Time Details Appointments NEW PROBLEM 15 2024 12:00P M DR MARIE Not available Not available Not available Lab CMP, serum or plasma 2024 025 [facility], [address] [place] [address], [place], [id number], 09/06/2024 12:10:36 CBC 2024 025 [facility], [address] [place] [address], [id number], 09/06/2024 12:10:36 PSA, serum or plasma 2024 025 [facility], [address] [place] [address], [id number], 09/06/2024 12:10:36 hemoglobi n A1c, QN, blood 2024 025 [facility], [address] [place] [address], [id number], 09/06/2024 12:10:36 testoster one, total, serum 2024 025 [facility], [address] [place] [address], [address], 09/06/2024 12:10:36 C-reactiv e protein, quantitat lolis, serum or plasma 2024 025 [facility], [address] [place] [address], [id number], 09/06/2024 12:10:36 ESR (erythroc yte sedimenta tion rate), blood 2024 025 [facility], [address] [place] [address], [id number], 09/06/2024 12:10:36 rf (rheumato id factor), serum 2024 025 [facility], [address] [place] [address], [address], 09/06/2024 12:10:36 RPR (rapid plasma reagin), serum 2024 025 [facility], [address] [place] [address], [id number], 09/06/2024 12:10:36 lyme igg + igm Ab, western blot, serum 2024 025 [facility], [address] [place] [address], [address], 09/06/2024 12:10:36 cd4 T-cells, blood 2024 025 [facility], [address] [place] [address], [address], 09/06/2024 12:10:36 vitamin B12 + folate, serum or blood 2024 025 [facility], [address] [place] [address], [address], 09/06/2024 12:10:36 vitamin D, 25-hydrox y, total, serum 2024 025 [facility], [address] [place] [address], [address], 09/06/2024 12:10:36 Referral None recorded. Procedures None recorded. Surgeries None recorded. Imaging None recorded. Medication Orders None recorded. Patient TargetsNo targets recorded. Patient InstructionsNo instructions recorded. Reason for Referral None Reported. Results Created Date Observation Date Name Description Value Unit Range Abnormal Flag Note LastModifiedBy Organization Detail LastModifiedTime 09/04/1909/03/2024 XR, kidne y + urete r + bladd er No observ ation record ed. [facility] (Medical Records) [address] [place] [address], [id number], 09/05/2024 15:12:09 Result Notes None recorded. Problems Name Problem SNOMED Code Status Onset Date Resolution Date Notes Provider Name and Address Organization Details Recorded Time Lyme disease 15004551 Active 2018 [facility] 9 08:32:38 Morbid obesity 142766875 Active 2018 [facility] 9 08:32:43 Hyperten sive disorder 34347024 Active 2018 [facility] 9 08:32:46 Hyperlip idemia 64194495 [facility] 08:32:52 Schizoaf fective schizoph rolanda 834267836 Active 2018 questiona ble [facility] 9 08:33:14 Hernia repair Active 2018 [facility] 9 08:33:34 Diabetes mellitus 61538638 Active 2018 [facility] 9 08:33:37 Edema 722572850 Active 2018 Jae Marie, DO [address] [place] [address], [phone], [facility] 9 14:26:17 Edema of lower extremit y 738160421 Active 2021 Jae Marie, DO [address] [place] [address], [phone], [facility] 2 11:52:03 Fatigue 10255956 Active 2021 Jae Marie DO [address] [place] [address], [phone], [facility] 5 12:03:00 Low back pain 840301380 Active 2021 Jae Marie, DO [address] [place] [address], [phone], [facility] 2 11:55:00 Hypotest osteroni sm 57531093036 04 Active 2021 Jae Marie DO [address] [place] [address], [phone], [facility] 2 12:11:53 Pain of multiple joints 37361694 Active 2022 Jae Marie DO [address] [place] [address], [address], [facility] 5 12:02:03 Mass of skin of abdomen 18408269747 531499 Active 2022 Jae Rosales Monicaevelio, DO [address] [place] [address], [address], [facility] 3 14:25:12 Open wound of anterior abdomina l wall 030450972 Active 2022 Jae Caba Vivi, DO [address] [place] [address], [address], [facility] 3 17:01:32 Open wound of anterior abdomina l wall 186746366 Active 2022 Jae Rosales Vivi, DO [address] [place] [address], [phone], [facility] 3 17:01:58 Non-heal ing surgical wound 927214420 Active 2022 Jae Rosales Vivi, DO [address] [place] [address], [address], [facility] 3 11:59:53 Deficien cy of vitamin D3 939993810 Active 2022 Jae Marie, DO [address] [place] [address], [address], [facility] 3 14:52:07 Insomnia 219257363 Active 2023 Jae Marie DO [address] [place] [address], [address], [facility] 4 16:32:56 Depressi ve disorder 82706733 Active 2023 NARCISO KERN [address] [place] [address], [address], [facility] 4 10:53:17 Anxiety 56157556 Active 2023 NARCISO KERN [address] [place] [address], [address], [facility] 4 10:53:25 Type 2 diabetes mellitus 48188094 Active 2023 NARCISO KERN [address] [place] [address], [address], [facility] 4 10:57:13 Obesity 454679858 Active 2023 NARCISO KERN [address] [place] [address], [address], [facility] 4 10:57:13 Anxiety disorder 791688494 Active 2023 Jae Marie, DO [address] [place] [address], [address], [facility] 4 13:01:04 Tinnitus 45634821 Active 2023 Jae Marie, DO [address] [place] [address], [address], [facility] 4 20:44:34 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 823261124 Active 2023 Jae Marie DO [address] [place] [address], [address], [facility] 4 13:49:45 Abdomina l pain 70671844 Active 2023 Jae Marie DO [address] [place] [address], [address], [facility] 4 13:54:06 Complex renal cyst 451925461 Active 2023 Jae Marie DO [address] [place] [address], [address], [facility] 4 22:09:29 Renal mass 003416909 Active 2023 Jae Marie DO [address] [place] [address], [address], [facility] 4 23:00:02 Constipa tion 79642183 Active 2023 Jae Marie DO [address] [place] [address], [address], [facility] 4 21:54:30 Chronic constipa tion 932356502 Active 2023 Jae TwanKarina Andersonevelio, DO [address], [place], [address], [facility] 4 20:45:36 Problem Notes None recorded. Medical Equipment None Reported. Allergies Allergen ID Allergen Name Allergen Category Reaction Reaction Severity Criticality Documentation Date Start Date Code Code System Note Provider Name and Address Organization Details Recorded Time 2741 tramadol medicatio n Not available Not available Not available 04/30/2018 47199 [facility] 9 08:32:29 Medications Name Sig Start Date Stop Date Status Note LastModified by Organization Details LastModified Time losartan 50 mg tablet TAKE 1 TABLET BY MOUTH ONCE DAILY 09/06 completed Not Available Not Available Not Available quetiapine 25 mg tablet TAKE 1 TABLET BY MOUTH ONCE DAILY FOR 30 DAYS 08/08 completed Not Available Not Available Not Available cyclobenzap rine 10 mg tablet Take 1 tablet 3 times a day by oral route for 7 days. 05/13 completed Not Available Not Available Not Available amoxicillin 500 mg capsule Take 1 capsule every 8 hours by oral route for 7 days. 06/09 completed Not Available Not Available Not Available silver sulfadiazin e 1 % topical cream APPLY TOPICALLY TWICE DAILY FOR 10 DAYS 06/02 completed Not Available Not Available Not Available trazodone 50 mg tablet TAKE 1 TABLET BY MOUTH ONCE DAILY 06/06 completed Not Available Not Available Not Available ibuprofen 800 mg tablet TAKE 1 TABLET BY MOUTH EVERY 8 HOURS NEEDED FOR PAIN 09/06 completed Not Available Not Available Not Available clonazepam 1 mg tablet TAKE 1 TABLET BY MOUTH THREE TIMES DAILY NEEDED FOR 7 DAYS 09/06 completed Not Available Not Available Not Available sulfamethox azole 800 mg-trimetho prim 160 mg tablet TAKE 1 TABLET BY MOUTH TWICE DAILY FOR 8 DAYS 08/08 completed Not Available Not Available Not Available risperidone 3 mg tablet TAKE 1 TABLET BY MOUTH ONCE DAILY AT BEDTIME FOR 30 DAYS 09/06 completed Not Available Not Available Not Available spironolact one 25 mg tablet TAKE 1 TABLET BY MOUTH ONCE DAILY 09/06 completed Not Available Not Available Not Available terbinafine HCl 250 mg tablet Take 1 tablet by mouth once daily 08/01 completed Not Available Not Available Not Available Fleet Enema 19 gram-7 gram/118 mL USE DIRECTED 09/06 completed Not Available Not Available Not Available trazodone 100 mg tablet TAKE 2 TABLETS BY MOUTH ONCE DAILY AT BEDTIME 08/08 completed Not Available Not Available Not Available cephalexin 500 mg capsule TAKE 1 CAPSULE BY MOUTH 4 TIMES DAILY FOR 7 DAYS 08/08 completed Not Available Not Available Not Available buspirone 10 mg tablet TAKE 1 TABLET BY MOUTH THREE TIMES DAILY 09/06 completed Not Available Not Available Not Available amoxicillin 250 mg capsule TAKE 1 CAPSULE BY MOUTH EVERY 8 HOURS UNTIL FINISHED 09/06 completed Not Available Not Available Not Available hydrochloro thiazide 25 mg tablet TAKE 2 TABLETS BY MOUTH ONCE DAILY 09/06 completed Not Available Not Available Not Available mupirocin 2 % topical ointment APPLY A SMALL AMOUNT OF OINTMENT TOPICALLY TO AFFECTED AREA(S) THREE TIMES DAILY 09/06 completed Not Available Not Available Not Available Dyazide 37.5 mg-25 mg capsule Take 1 capsule every day by oral route for 30 days. 07/07 completed Not Available Not Available Not Available polyethylen e glycol 3350 17 gram/dose oral powder MIX 17 GRAMS OF POWDER IN 8 OUNCES OF LIQUID AND DRINK ONCE DAILY 09/06 completed Not Available Not Available Not Available levofloxaci n 750 mg tablet Take 1 tablet every day by oral route for 7 days. 06/09 completed Not Available Not Available Not Available zolpidem 10 mg tablet Take by oral route for 30 days. 08/08 completed Not Available Not Available Not Available testosteron e 1 % (25 mg/2.5 gram) transdermal gel packet Apply 1 packet every day by transderm al route for 30 days. 09/06 completed Not Available Not Available Not Available ketoconazol e 2 % topical cream APPLY CREAM TOPICALLY TO AFFECTED AREA ONCE DAILY 09/06 completed Not Available Not Available Not Available amoxicillin 875 mg-potassiu m clavulanate 125 mg tablet TAKE 1 TABLET BY MOUTH EVERY 12 HOURS FOR 7 DAYS 06/02 completed Not Available Not Available Not Available Triamterene W/Hctz 37.5 mg-25 mg tablet Take 1 tablet every day by oral route. 06/09 completed Not Available Not Available Not Available lactulose 10 gram/15 mL oral solution TAKE 15 ML BY MOUTH NEEDED FOR 10 DAYS 09/06 completed Not Available Not Available Not Available SMZ-TMP DS 400-80mg one tablet bid 06/09 completed Not Available Not Available Not Available peg 3350-electr olytes 236 gram-22.74 gram-6.74 gram-5.86 gram solution TAKE DIRECTED UNTIL FECAL EFFLUENT IS CLEAR 09/06 completed Not Available Not Available Not Available Vitals Date Recorded Body weight Oxygen saturation Oxygen saturation in Arterial blood by Pulse oximetry Heart rate Systolic blood pressure Diastolic blood pressure Provider Name and Address Organization Details Last Updated DateTime 5 487949. 07 g 96 % 96 % 72 /min 160 mm[Hg] 90 mm[Hg] Nani Gilmore [facility] 5 11:49:59 Social History Question Answer Notes LastModified by Organizat ion Details LastModified Time Tobacco Smoking Status Former Smoker Not Available [facility] 02/04/2020 03:36:23 What Was The Date Of Your Most Recent Tobacco Screening? 08/09/2023 [email or web address] Information not available 08/09/2023 Sex: Unknown Functional Status Question Answer Note LastModified by Organization D etails LastModified Time Do you or have you ever used any other forms of tobacco or nicotine? No Information not available 02/02/2022 Mental Status None recorded. Family History Nothing Reported. Medical History No medical history recorded. Past Encounters Encounter ID Performer Location Encounter Start Date Encounter Closed Date Diagnosis/Indication Diagnosis SNOMED-CT Code Diagnosis ICD10 Code Diagnosis Note [id number] Jae Marie DO [facility] [address] [address] 09/06/2024 11:42:09 09/06/2024 12:08:40 Anxiety 79569836 F41.1 due to his ongoing symptoms Depressive disorder 3548 9007 F32.0 situationa l as above Hyperlipidemia 70757670 E78.5 DISCUSSED LAST TIME Hypertensive disorder 38 143978 I10 we will need to try a diff med due to intoleranc e Hypotestosteronism 32034 63356 104 R79.89 we will repeat the testostero ne level next month Type 2 lexie betes mellitus 98002854 E11.9 Depression screening 171 956337 Z13.31 Neg Screening Pain of mu ltiple joints 77530434 M25.50 Fatigue 56188914 R53.83 we will also get some am cortisol level Health Concerns Section Related Observation LastModified by Organization Detai ls LastModified Time None Recorded Concern Status LastModified by Organization Details LastModified Time None Recorded Payers Encounter Date Sequence Insurance Name Policy Number Policy Mao Covered Member ID Mao Member ID Guarantor Name 09/06/2024 1 [facility] Marcellus Dominguez [id number] Marcellus Dominguez Notes Date Note Type Note Provider Name and Address Organization Details Recorded Time 09/07/19 25 text/htm l Anxiety/DepressionReported bypatient.Severity:denies suicidal ideations; able to maintain relationships; does not interfere with activities of daily living Context:no major life stressors Associated Symptoms:denies homicidal ideations; no significant weight gain; no significant weight loss; no visual/auditory hallucinations; no delusions; no shortness of breath; mood good; no anxiety; no crying spells; no panic; no isolation; sleeping well; appetite good; energy good; no apathy; maintaining functionalityCare Management - DiabetesReported bypatient.Self Care:seeing eye doctor yearly for dilated eye exam; checking feet regularly; normal range of home blood sugars (in the low 100s); no side effects from medications Associated Symptoms:symptoms are usually well controlled; no fatigue; no dizziness; no excessive sweating; no headaches; no confusion; no increased thirst; no increased appetite; no increased urination; no blurred vision; no numbness of feet; no calluses on feetCare Management - HyperlipidemiaReported bypatient.Control:usually well controlled; improving; at goal Complications:no coronary artery disease; no heart attack; no cardiovascular disease; no pancreatitis; no strokeCare Management - HypertensionReported bypatient.Self Care:not under emotional stress Severity:symptoms are improving; does not interfere with daily activities Associated Symptoms:no dizziness; no lightheadedness; no chest pain; no shortness of breath; no palpitations; no edema; no calf muscle cramps; no blurred vision; no confusion; no headaches; no fatigue here under a lot of stresshas stated that he has been feeling awful and is fixated on thinking he has hiv or syphilis he has stopped all his meds on his own Jea Marie, DO [address] [facility], [place], [address], [facility] 09/06/2024 12:08:39
[2024-09-06 18:36] LABS: MANUAL DIFF FLAG NO
[2024-09-06 18:37] LABS: Basophils Percent Auto 0.5 % (0-2); Eosinophils Percent Auto 0.5 % (0-4); Hematocrit 48.9 % (42.0-52.0); Hemoglobin 16.7 g/dl (14.0-18.0); Imm Gran Abs Auto 0.02 X10*3/uL (0.00-0.03); Imm Gran Pct Auto 0.3 % (0.0-0.4); Lymphocytes Absolute Auto 2.2 X10*3/uL (1.2-4.9); Lymphocytes Percent Auto 29.6 % (20-40); Mean Corpuscular HGB Conc 34.2 g/dl (31.0-36.0); Mean Corpuscular Hemoglobin 29.9 pg (27.0-33.0); Mean Corpuscular Volume 87.6 fL (80.0-98.0); Mean Platelet Volume 9.8 fL (9.4-12.4); Monocytes Absolute Auto 0.6 X10*3/uL (0.1-1.2); Monocytes Percent Auto 8.1 % (2-11); Neutrophils Absolute Auto 4.5 x10*3/uL (2.0-8.3); Platelet Count 288 X10*3/uL (160-400); Red Blood Count 5.58 X10*6/uL (4.60-5.80); Red Cell Distribution Width 13.3 % (11.0-16.0); White Blood Count 7.3 X10*3/uL (4.8-10.8)
[2024-09-06 19:07] LABS: Rheumatoid Factor < 13.0 IU/mL (<15.0)
[2024-09-06 19:11] LABS: Alanine Aminotransferase 22 U/L (0-40); Albumin Level 4.6 g/dL (3.5-5.0); Alkaline Phosphatase 70 U/L (39-117); Anion Gap 12 (12-20); Aspartate Amino Transferase 28 U/L (5-37); Bilirubin Total 0.7 mg/dL (0.0-1.0); Blood Urea Nitrogen 24 mg/dL (9-16); C Reactive Protein < 0.10 mg/dL (< or = 0.50); Calcium 9.9 mg/dL (8.4-10.2); Carbon Dioxide 25 mmol/L (22-29); Chloride 106 mmol/L (96-108); Estimated Glomerular Filt Rate > 60; Glucose Random 97 mg/dL (60-115); Potassium 4.2 mmol/L (3.3-5.1); Sodium 139 mmol/L (135-145)
[2024-09-06 19:14] LABS: Erythrocyte Sedimentation Rate 5 MM/HR (0-15)
[2024-09-06 19:26] LABS: Vitamin D 25-OH Total 71.3 ng/mL (>30)
[2024-09-06 19:37] LABS: Folate 10.8 ng/mL (> or = 4.0); Prostate Specific Antigen 0.33 ng/mL (<0.05-4.0); Vitamin B12 304 pg/mL (200-900)
[2024-09-07 03:22] LABS: Estimated Average Glucose 94 mg/dL; Hemoglobin A1c % 4.9 % (<6.0)
[2024-09-07 04:04] LABS: Syphilis Screen Reactive (Nonreactive)
[2024-09-09 21:29] LABS: Lyme Abs Screen <0.90 index
[2024-09-11 15:47] LABS: Absolute CD3 Count 2052 cells/uL (840-3060); Absolute CD4 Count 1202 cells/uL (490-1740); Absolute CD8 Count 1002 cells/uL (180-1170); Absolute Lymphocytes 2501 cells/uL (850-3900); Percent CD3 Cells 82 % (57-85); Percent CD4 Cells 48 % (30-61); Percent CD8 Cells 40 % (12-42)
[2024-09-12 14:58] LABS: Testosterone, Total 332 ng/dL (250-1100)
[2024-09-13 08:33] LABS: RPR Quantitative Reactive 1:8 (Nonreactive)
[2024-09-13 08:34] LABS: T.Pallidum Particle Agg Test Reactive (Nonreactive)
== END 2024-09-06 12:07 | disposition home or self-care (01) ==
LOC: HO.MANLDS 12:06
PROVIDERS: Visit Provider Internal Medicine
DX: I10 Essential (primary) hypertension (principal); R79.89 Other specified abnormal findings of blood chemistry; E11.9 Type 2 diabetes mellitus without complications; M25.50 Pain in unspecified joint; R53.83 Other fatigue
CPT/HCPCS: 36415; 80053; 82306; 82607; 82746; 83036; 84153; 84403; 85025; 85652; 86140; 86359; 86360; 86431; 86592; 86617; 86618; 86780

== ENCOUNTER 2024-09-20 10:08 | Emergency (ER) | payer MEDICAID, SELFPAY ==
--- NOTE | ~2024-09-20 | CT_ITS ---
EXAMINATION: CT HEAD WITHOUT CONTRAST CLINICAL INFORMATION: Tinnitus, blurry vision. COMPARISON: None available. TECHNIQUE: Contiguous axial imaging was performed from the skull base to vertex without intravenous administration of contrast. This CT examination was performed using dose optimization techniques as appropriate, variously including the following: *Automated exposure control *Adjustment of mA and/or kV according to patient size (this includes techniques or standardized protocols for targeted exams where dose is matched to indication/reason for exam; i.e. extremities or head) *Use of iterative reconstruction technique FINDINGS: There is no evidence of intracranial hemorrhage or extra-axial fluid collection. There is no mass effect, or edema. No CT evidence of acute territorial infarct. Ventricles, sulci, and cisterns are normal in size and configuration for patient age. No hydrocephalus. No midline shift. Negative hyperdense MCA sign. Negative insular ribbon sign. Patchy periventricular and deep white matter hypoattenuation is consistent with mild small vessel ischemic changes. Normal pituitary. Mild atheromatous calcification of the bilateral carotid siphons and V4 segments vertebral arteries bilaterally. Globes and orbital contents image normally. No extracranial soft tissue abnormalities. The paranasal sinuses, mastoid air cells, and tympanic cavities are normally aerated. No suspicious bony abnormalities. There are no acute fractures evident. CT/CT head/brain wo IV con IMPRESSION: No acute intracranial abnormalities. Electronically signed by: Garett Smith MD 09/20/2024 03:01 PM EDT
[2024-09-20 10:11] VITALS: BP 167/100; PULSE 75; RESP 18; TEMP 36.7; O2SAT 97; BMI 34.6
--- OUTSIDE RECORDS SUMMARY | 2024-09-20 10:56 | XMS_ITS | Data Portability ---
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 We reviewed that unfortunately there is no known medical nor surgical cure. I have recommended the use of hearing protection as needed. They should also use masking techniques with background noises that modulate to decrease perception of non-pulsatile tinnitus. Other therapies to improve tolerance of tinnitus were reviewed, to include biofeedback, sound retraining, and cognitive behavioral therapy. We discussed that high stress, low sleep and high caffeine intake can also be contributing factors. A brochure was provided to patient to read at home. [email or web address] Not available 12/21/2023 10:52:21 Plan of Treatment Reminders Order Date Submit Date Provider Last Modified By Organization Details Last Modified Time Details Appointments None record ed. Lab None record ed. Referral None record ed. Procedures None record ed. Surgeries None record ed. Imaging None record ed. Medication Orders None record ed. Patient TargetsNo targets recorded. Patient InstructionsNo instructions recorded. Reason for Referral None Reported. Results Created Date Observation Date Name Description Value Unit Range Abnormal Flag Note LastModifiedBy Organization Detail LastModifiedTime 12/22/19 24 audio gram No observ ation record ed. [email or web address] Not Available 12/03 12:06:14 Result Notes None recorded. Problems Name Problem SNOMED Code Status Onset Date Resolution Date Notes Provider Name and Address Organization Details Recorded Time Bilateral tinnitus 2466153780531 Active 2023 MISSY ZUÑIGA, AUD 100 [facility], [address], [facility], [phone], [facility] - [facility] 4 10:00:15 Problem Notes None recorded. Procedures Surgical History Date Name Laterality Status Provider Name and Address Organization Details Recorded Time 4 Comp Audio with Tymps - 28471 & 99444 completed MISSY ZUÑIGA, [facility] 100 [facility], [place], [address], [facility] - [facility] 12/21/2023 10:02:10 hernia repair completed Ly Yancey [facility] 12/21/2023 10:05:17 Imaging Results None recorded. Procedure Notes None recorded. Medical Equipment None Reported. Allergies Allergen ID Allergen Name Allergen Category Reaction Reaction Severity Criticality Documentation Date Start Date Code Code System Note Provider Name and Address Organization Details Recorded Time 266372 tramadol medicatio n Not available Not available Not available 12/21/2023 48298 RxNorm Ly richey [facility] 4 10:03:23 Medications Name Sig Start Date Stop Date Status Note LastModified by Organization Details LastModified Time losartan 50 mg tablet TAKE 1 TABLET BY MOUTH ONCE DAILY active Not Available Not Available No t Available quetiapine 25 mg tablet TAKE 1 TABLET BY MOUTH ONCE DAILY FOR 30 DAYS active Not Available Not Available No t Available trazodone 50 mg tablet TAKE 1 TABLET BY MOUTH ONCE DAILY 12/20 completed Not Available Not Available Not Available clonazepam 1 mg tablet TAKE 1 TABLET BY MOUTH THREE TIMES DAILY NEEDED FOR 7 DAYS 12/20 completed Not Available Not Available Not Available sulfamethox azole 800 mg-trimetho prim 160 mg tablet TAKE 1 TABLET BY MOUTH TWICE DAILY FOR 8 DAYS 12/20 completed Not Available Not Available Not Available risperidone 3 mg tablet TAKE 1 TABLET BY MOUTH ONCE DAILY AT BEDTIME FOR 30 DAYS 12/20 completed Not Available Not Available Not Available spironolact one 25 mg tablet TAKE 1 TABLET BY MOUTH ONCE DAILY active Not Available Not Available No t Available Fleet Enema 19 gram-7 gram/118 mL USE DIRECTED 12/20 completed Not Available Not Available Not Available trazodone 100 mg tablet TAKE 2 TABLETS BY MOUTH ONCE DAILY AT BEDTIME 12/20 completed Not Available Not Available Not Available cephalexin 500 mg capsule TAKE 1 CAPSULE BY MOUTH 4 TIMES DAILY FOR 7 DAYS 12/20 completed Not Available Not Available Not Available buspirone 10 mg tablet TAKE 1 TABLET BY MOUTH THREE TIMES DAILY active Not Available Not Available No t Available polyethylen e glycol 3350 17 gram/dose oral powder MIX 17 GRAMS OF POWDER IN 8 OUNCES OF LIQUID AND DRINK ONCE DAILY 12/20 completed Not Available Not Available Not Available zolpidem 10 mg tablet TAKE 1 TABLET BY MOUTH ONCE DAILY FOR 10 DAYS 12/20 completed Not Available Not Available Not Available testosteron e 1 % (25 mg/2.5 gram) transdermal gel packet APPLY 1 PACKET TOPICALLY ONCE DAILY FOR 30 DAYS active Not Available Not Available No t Available lactulose 10 gram/15 mL oral solution TAKE 15 ML BY MOUTH NEEDED FOR 10 DAYS 12/20 completed Not Available Not Available Not Available peg 3350-electr olytes 236 gram-22.74 gram-6.74 gram-5.86 gram solution TAKE DIRECTED UNTIL FECAL EFFLUENT IS CLEAR 12/20 completed Not Available Not Available Not Available Vitals Date Recorded Body height Body weight Body mass index (BMI) Provider Name and Address Organization Details Last Updated DateTime 12/21/2023 185.42 cm 001323.09 g 33 kg/m2 Ly Yancey [place] - [facility] 12/21/2023 10:20:33 Social History None recorded. Functional Status None recorded. Mental Status None recorded. Family History Nothing Reported. Medical History Condition Response Diabetes Y Hyperlipidemia Y Anxiety Y Hypertension Y Depression Y Past Encounters Encounter ID Performer Location Encounter Start Date Encounter Closed Date Diagnosis/Indication Diagnosis SNOMED-CT Code Diagnosis ICD10 Code Diagnosis Note [id number] MAT COSTA PA-C [facility] [address] [address] 12/21/2023 09:40:01 12/21/2023 11:48:47 Bilateral tinnitus 0224629558 102 H93.13 Right Ear:Essent ially normal hearing with excellent speech discrimina tion.Type A tympanogra m.Left Ear:Essent ially normal hearing with excellent speech discrimina tion.Type A tympanogra m. Health Concerns Section Related Observation LastModified by Organization Detai ls LastModified Time None Recorded Concern Status LastModified by Organization Details LastModified Time None Recorded Advance Directives Directive None Recorded Payers Insurance Date Sequence Insurance Name Policy Number Policy Mao Covered Member ID Mao Member ID Guarantor Name 12/21/2023 1 [place] [facility] Marcellus Dominguez [id number] Marcellus Dominguez Notes Date Note Type Note Provider Name and Address Organization Details Recorded Time 12/21/2023 text/html 58 year old male presents for evaluation of ears and hearing. Reports a high pitched noise that started in the left ear in April and now affects both ears. Intermittent but increasing in frequency. More noticeable when environment is quiet. No problems with hearing. There is no otalgia and no otorrhea. No history of occupational noise exposure. Does not wear hearing protection. When he was younger he had a lot of ear infections until he started homeopathic treatment over 5 years ago. He has never had an otologic surgery. MAT COSTA PA-C [address] [place] [address], [phone], [facility] - [facility] 12/21/2023 10:52:52
--- NOTE | 2024-09-20 11:56 | ED.MALEGU ---
HPI - Male Genitourinary General Chief complaint: Urogenital-Male Stated complaint: Later Stage Syphilis symptoms Time Seen by Provider: 09/20/24 10:26 Source: patient Mode of arrival: ambulatory Limitations: no limitations History of Present Illness ED Provider: Lindy Gonsalves PA-C HPI Narrative: 59 Year old male with medical history of depression, constipation presents to the ED due to neurosyphilis concerns. Patient states he has been symptomatic for 1 year with constant tinnitus, abdominal myoclonus, blurry vision, insomnia, stabbing nerve pain over the entire body. Patient states he has been evaluated by his PCP and had an STD HIV test that was negative. He states he was tested for syphilis and was positive. He reports [facility] called him Monday with concerns for neurosyphilis and recommended he come to the ED to get an LP done for further evaluation. Patient states his sexual partners are male but has not been sexually active since 2022. Patient denies chest pain, shortness of breath, nausea, vomiting, black/tarry stool, fever, chills, penile chancre, penile discharge, urinary symptoms. Onset (ago): year(s) (1.5) Duration: progressively worsening Relieving factors: none Exacerbating factors: none Associated symptoms: Reports denies other symptoms Related Data Sexually active: No ( Patient reports no sexual partners since 2022) Previous Rx's ?Medication ?Instructions ?Recorded peg 3350-electrolytes 236 240 ml PO Q10M PRN constipation 10/28/23 gram-22.74 gram-6.74 gram-5.86 #4,000 mL gram solution (Golytely) polyethylene glycol 3350 17 17 g PO DAILY 2 weeks #238 grams 10/28/23 gram/dose oral powder (Miralax) sodium phosphates 19 gram-7 230 ml DE ONCE #230 mL 10/28/23 gram/197 mL enema (Fleet Enema Extra) Allergies Allergy/AdvReac Type Severity Reaction Status Date / Time No Known Allergies Allergy Verified 09/20/24 10:14 Review of Systems Review of Systems: CONST: Negative for fever, body aches and chills. POS insomnia HENT: Negative for neck pain/stiffness, headache, congestion, sore throat, swelling. POS tinnitus EYES: Negative for discharge/pain. POS blurry vision RESP: Negative for cough/hemoptysis and shortness of breath. CV: Negative chest pain, difficulty breathing, palpitations. ABD: Negative pain, nausea, vomiting. : Negative increase frequency, dysuria, blood in urine or stool. MUSC: Negative for muscle aches, edema. SKIN: Negative rash, lesions/sores. NEURO: Negative headache, dizziness, weakness. POS weakness, cognitive decline, stabbing nerve pain, abdominal myoclonus, depression Yes all other systems are reviewed and are negative [facility] Past Medical History Attestation statement: The following information was validated with the patient. Source: old records reviewed and nursing notes reviewed Social History Social History Alcohol intake: former Smoked in Last 30 Days: No Use of substances other than those prescribed or required for medical reasons: No Any prior treatment program specific to substance use: No Advance Directives: No Advance Directives Information Provided: Yes Physical Exam Vital Signs: Vital Signs: Last Vital Signs Temp 98.1 F 09/20/24 18:19 Pulse 66 09/20/24 18:19 Resp 18 09/20/24 18:19 BP 152/90 H 09/20/24 18:19 Pulse Ox 98 09/20/24 18:19 O2 Del Method Room Air 09/20/24 18:19 BMI result Body Mass Index 34.6 GENERAL APPEARANCE: ?AxOx4, tired appearing, no acute distress. HEENT: ?NC, AT. MMM. EOMI, clear conjunctiva, oropharynx clear. NECK: ?Supple without lymphadenopathy.? No stiffness or restricted ROM. Brudzinski/Kernig negative HEART:? Normal rate and regular rhythm, normal S1/S1, no m/r/g LUNGS:? CTAB, moving air well. No crackles or wheezes are heard. ABDOMEN: ?Soft, nontender, nondistended with good bowel sounds heard. several episodes of abdominal myoclonus observed. BACK: No CVAT, no obvious deformity. EXTREMITIES: ?Without cyanosis, clubbing or edema. 2+ DP pulses, 5/5 strength B/L NEUROLOGICAL: ?Grossly nonfocal. Alert and oriented, moving all 4 extremities. mildly ataxic gait, Romberg positive. Patient with flat affect, Skin: ?Warm and dry without any rash. Medications Administered Discontinued Medications Generic Name Dose Route Start Last Admin Trade Name Freq PRN Reason Stop Dose Admin Sodium Chloride 1,000 mls @ 999 mls/hr 09/20/24 14:15 09/20/24 14:44 Ns IV 09/20/24 15:15 Infused .Q1H1M JOSE Infusion Lidocaine HCl 5 ml 09/20/24 13:04 09/20/24 13:38 Lidocaine Hcl 1 % Mpf 5 Ml Vial INFILTRATI 09/20/24 13:05 Not Given ONCE ONE Penicillin G Benzathine 2,400,000 unit 09/20/24 18:26 09/20/24 18:34 Penicillin G Benzathine 2,400,000 Unit/4 Ml Syringe IM 09/20/24 18:27 2,400,000 unit ONCE ONE Administration Medical Decision Making Medical Decision Making MDM Narrative: 59 Year old male with medical history of depression, constipation presents to the ED due to neurosyphilis concerns. Patient states he has been symptomatic for 1 year with constant tinnitus, abdominal myoclonus, blurry vision, insomnia, stabbing nerve pain over the entire body. Patient states he has been evaluated by his PCP and had an STD HIV test that was negative. He states he was tested for syphilis and was positive. He reports [facility] called him Monday with concerns for neurosyphilis and recommended he come to the ED to get an LP done for further evaluation. Patient states his sexual partners are male but has not been sexually active since 2022. VSS, patient tired appearing, in no acute distress, nontoxic appearing. Physical exam reveals positive Romberg test. pupils WNL, with appropriate accommodation/ consensual response, EOMI, patient with photophobia during funduscopic exam, could not get a good visual of the retina due to patient not being able to tolerate. Field of vision test WNL. Brudzinski/Kernig negative, no neck pain or stiffness,patient afebrile- less likely meningitis. Right patellar reflex sluggish. Patient with flat affect, perseverating on symptoms, patient has 3 plantar paper sheets full of drawings of his body with associated symptoms that he has been experiencing. Patient is A&O x4, but there seems to be some type of cognitive deficit. No focal neurological deficits noted during exam. I spoke with my attending Dr. Slade Knox who advised me to consult ID Dr. Kline- who advised HIV testing, Lyme testing and LP for further evaluation. Awaiting LP results. EKG normal sinus rhythm without ST elevation/depression, T-wave abnormalities, arrhythmias. Labs unremarkable. Course 18:17- LP performed by my attending Dr. Slade Knox, CFS was obtained and specimen sent to lab. Patient tolerated procedure well without any incidence. Results: CFS protein- 73.4, CFS glucose-55, CSF- 2 WBC, 95 lymphocytes, negative encephalitis/meningitis panel. Patient is afebrile with stable vital signs. Infectious Disease Dr. Kline recommended to treat the patient with 2.4 IM penicillin for initial treatment, and have him follow up in office to resume care. Patient is aware and agreeable to plan. Differential Diagnosis Differential Diagnoses: The differential diagnosis associated with the presentation includes Meningitis Tertiary syphilis Neuro syphilis Dysrhythmia Lyme disease HIV Admission/Observation Consideration of admission/observation: Escalation of care including admission/observation considered Consult Healthcare Provider Management of the patient was discussed with: Solar Thermal Installer ( infectious disease, Dr. Kline) Lab Data MDM Lab Attestation statement: I reviewed the patient's lab results. 09/20/24 13:13 09/20/24 13:13 Labs: Lab Results 09/20/24 09/20/24 09/20/24 Range/Units 13:13 13:46 13:46 WBC 8.4 (4.8-10.8) X10*3/uL RBC 5.46 (4.60-5.80) X10*6/uL Hgb 16.2 (14.0-18.0) g/dl Hct 47.2 (42.0-52.0) % MCV 86.4 (80.0-98.0) fL MCH 29.7 (27.0-33.0) pg MCHC 34.3 (31.0-36.0) g/dl RDW 13.2 (11.0-16.0) % Plt Count 253 (160-400) X10*3/uL MPV 9.1 L (9.4-12.4) fL Immature Gran % (Auto) 0.2 (0.0-0.4) % Neut % (Auto) 56.9 (45-73) % Lymph % (Auto) 33.5 (20-40) % Bradley % (Auto) 7.8 (2-11) % Eos % (Auto) 1.0 (0-4) % Baso % (Auto) 0.6 (0-2) % Lymph # (Auto) 2.8 (1.2-4.9) X10*3/uL Bradley # (Auto) 0.7 (0.1-1.2) X10*3/uL Eos # (Auto) 0.1 (0.0-0.4) X10*3/uL Baso # (Auto) 0.1 (0.0-0.2) X10*3/uL Abs Immat Gran (auto) 0.02 (0.00-0.03) X10*3/uL Absolute Neuts (auto) 4.8 (2.0-8.3) x10*3/uL Absolute Nucleated RBC 0.000 (0.0-0.012) X10*3/uL Nucleated RBC % (auto) 0.0 (0.0-0.2) /100WBC ESR 2 (0-15) MM/HR Sodium 140 (135-145) mmol/L Potassium 4.7 (3.3-5.1) mmol/L Chloride 106 (96-108) mmol/L Carbon Dioxide 25 (22-29) mmol/L Anion Gap 14 (12-20) BUN 19 H (9-16) mg/dL Creatinine 0.80 (0.5-1.4) mg/dL Estim Creat Clear Calc 132.6 Estimated GFR > 60 Random Glucose 89 (60-115) mg/dL Calcium 9.2 D (8.4-10.2) mg/dL Total Bilirubin 0.4 (0.0-1.0) mg/dL Direct Bilirubin 0.1 (0.0-0.5) mg/dL AST 32 (5-37) U/L ALT 25 (0-40) U/L Alkaline Phosphatase 64 (39-117) U/L C-Reactive Protein < 0.10 (< or = 0.50) mg/dL Total Protein 7.7 (6.5-8.0) g/dL Albumin 4.4 (3.5-5.0) g/dL Urine Color Urine Appearance Urine pH (5.0-9.0) Ur Specific Vernon (1.005-1.025) Urine Protein (Neg-Trace) mg/dL Urine Glucose (UA) (Negative) mg/dL Urine Ketones (Negative) mg/dL Urine Blood (Negative) Urine Nitrite (Negative) Ur Leukocyte Esterase (Negative) Urine RBC (0-2) /HPF Urine WBC (0-5) /HPF Ur Squamous Epith Cells (0-2) /HPF Urine Bacteria (None Seen) Hyaline Casts (0-2) /LPF CSF Tube Number 1 4 CSF Volume 2.0 ML CSF Appearance CLEAR CSF Color COLORLESS CSF WBC 2 MM*3 CSF RBC 0 MM*3 CSF Lymphocytes 95 % CSF Monocytes % 5 % CSF Appearance (b) Clear, Colorless CSF Glucose 55 mg/dL CSF Total Protein 73.4 H (15-45) mg/dL CSF C.neoform/gat PCR Not Detected (Not Detect.) CSF CMV DNA (PCR) Not Detected (Not Detect.) CSF Enterovirus (PCR) Not Detected (Not Detect.) CSF E. coli K1 (PCR) Not Detected (Not Detect.) CSF H. influenzae (PCR) Not Detected (Not Detect.) CSF HSV I (PCR) Not Detected (Not Detect.) CSF HSV II (PCR) Not Detected (Not Detect.) CSF HHV 6 (PCR) Not Detected (Not Detect.) CSF L.monocytogenes PCR Not Detected (Not Detect.) CSF N. meningitidis PCR Not Detected (Not Detect.) CSF Parechovirus (PCR) Not Detected (Not Detect.) CSF S. agalactiae (PCR) Not Detected (Not Detect.) CSF S. pneumoniae (PCR) Not Detected (Not Detect.) CSF VZV (PCR) Not Detected (Not Detect.) 09/20/24 Range/Units 15:31 WBC (4.8-10.8) X10*3/uL RBC (4.60-5.80) X10*6/uL Hgb (14.0-18.0) g/dl Hct (42.0-52.0) % MCV (80.0-98.0) fL MCH (27.0-33.0) pg MCHC (31.0-36.0) g/dl RDW (11.0-16.0) % Plt Count (160-400) X10*3/uL MPV (9.4-12.4) fL Immature Gran % (Auto) (0.0-0.4) % Neut % (Auto) (45-73) % Lymph % (Auto) (20-40) % Bradley % (Auto) (2-11) % Eos % (Auto) (0-4) % Baso % (Auto) (0-2) % Lymph # (Auto) (1.2-4.9) X10*3/uL Bradley # (Auto) (0.1-1.2) X10*3/uL Eos # (Auto) (0.0-0.4) X10*3/uL Baso # (Auto) (0.0-0.2) X10*3/uL Abs Immat Gran (auto) (0.00-0.03) X10*3/uL Absolute Neuts (auto) (2.0-8.3) x10*3/uL Absolute Nucleated RBC (0.0-0.012) X10*3/uL Nucleated RBC % (auto) (0.0-0.2) /100WBC ESR (0-15) MM/HR Sodium (135-145) mmol/L Potassium (3.3-5.1) mmol/L Chloride (96-108) mmol/L Carbon Dioxide (22-29) mmol/L Anion Gap (12-20) BUN (9-16) mg/dL Creatinine (0.5-1.4) mg/dL Estim Creat Clear Calc Estimated GFR Random Glucose (60-115) mg/dL Calcium (8.4-10.2) mg/dL Total Bilirubin (0.0-1.0) mg/dL Direct Bilirubin (0.0-0.5) mg/dL AST (5-37) U/L ALT (0-40) U/L Alkaline Phosphatase (39-117) U/L C-Reactive Protein (< or = 0.50) mg/dL Total Protein (6.5-8.0) g/dL Albumin (3.5-5.0) g/dL Urine Color Yellow Urine Appearance Clear Urine pH 6.5 (5.0-9.0) Ur Specific Vernon 1.025 (1.005-1.025) Urine Protein Negative (Neg-Trace) mg/dL Urine Glucose (UA) Negative (Negative) mg/dL Urine Ketones Trace (Negative) mg/dL Urine Blood Negative (Negative) Urine Nitrite Negative (Negative) Ur Leukocyte Esterase Trace H (Negative) Urine RBC 0-2 (0-2) /HPF Urine WBC 0-5 (0-5) /HPF Ur Squamous Epith Cells 0-2 (0-2) /HPF Urine Bacteria None Seen (None Seen) Hyaline Casts 0-2 (0-2) /LPF CSF Tube Number CSF Volume ML CSF Appearance CSF Color CSF WBC MM*3 CSF RBC MM*3 CSF Lymphocytes % CSF Monocytes % % CSF Appearance (b) CSF Glucose mg/dL CSF Total Protein (15-45) mg/dL CSF C.neoform/gat PCR (Not Detect.) CSF CMV DNA (PCR) (Not Detect.) CSF Enterovirus (PCR) (Not Detect.) CSF E. coli K1 (PCR) (Not Detect.) CSF H. influenzae (PCR) (Not Detect.) CSF HSV I (PCR) (Not Detect.) CSF HSV II (PCR) (Not Detect.) CSF HHV 6 (PCR) (Not Detect.) CSF L.monocytogenes PCR (Not Detect.) CSF N. meningitidis PCR (Not Detect.) CSF Parechovirus (PCR) (Not Detect.) CSF S. agalactiae (PCR) (Not Detect.) CSF S. pneumoniae (PCR) (Not Detect.) CSF VZV (PCR) (Not Detect.) Independent Interpretation I performed an independent interpretation of an: EKG Interpretation: I independently interpreted the EKG Vent. Rate : 70 BPM Atrial Rate : 70 BPM P-R Int : 124 ms QRS Dur : 72 ms QT Int : 380 ms P-R-T Axes : 5 16 55 degrees QTcB Int : 410 ms Normal sinus rhythm Normal ECG When compared with ECG of 03-Sep-2024 14:37, No significant change was found External Record Review External record reviewed: Inpatient record, Office record, Outpatient record and Prior outpatient labs Procedures Lumbar Puncture Time Out Performed: Yes Patient Position: upright Skin Prep: Povidone-Iodine 1% Local Anesthetic: lidocaine 1% Amount of anesthesia used (mL): 4 Spinal Needle Gauge: 20G Interspace Used: L4-L5 Fluid Initially Obtained: clear Complications: none Additional Comments: On my 1st attempt with a 20 gauge needle I must have hit a blood vessel because thick bright red blood came through the needle. I then made a 2nd attempt with a 2nd needle, also 20 gauge, and easily obtained very clear, free-flowing fluid. The patient tolerated both attempts very well. Discharge Plan Discharge Clinical Impression: Syphilis in male Patient Disposition: Home, Self-Care Additional Instructions: You were seen in the emergency department today for syphilis, and neurosyphilis symptoms. we also tested you for Lyme disease and you will be called with those results. You had an LP done today in the department and we are awaiting culture and results. We consulted the Infectious Disease doctor, Dr. Kline who recommended an initial dose of 2.4 MU of penicillin which was given as an injection Into your glute. Dr. Kline will see you as a Follow up patient in her office. Please call her office Monday morning for an appointment. You also need to follow up with your primary care doctor. [facility] [address] [place] [phone] - Call Monday at 8am to schedule your appointment, let the office know you were seen in the Emergency department Please return to the emergency department if you experience fever over 100.4?, chills, difficulty walking, visual disturbances, nausea, vomiting, bloody stools or any new/ concerning/ worsening symptoms Prescriptions: No Action Fleet Enema Extra 19-7 gram/197 mL enema 230 ml DE ONCE Qty: 230 0RF polyethylene glycol 3350 [Miralax] 17 gram/dose powder 17 g PO DAILY 14 Days Qty: 238 0RF peg 3350-electrolytes [Golytely] 236-22.74-6.74 -5.86 gram recon soln 240 ml PO Q10M PRN (Reason: constipation) Qty: 4000 0RF Rx Instructions: until fecal effluent is clear Referrals: [facility] [Provider Group, Infectious Disease] Referral Note: patient positive for syphilis with neurosyphilis symptoms. DPH encouraged him to present to ED for LP. Discussed patient with Dr. Kline who agreed to see him in office for follow up Print Language: Spanish
--- NOTE | 2024-09-20 12:53 | ECG_ITS ---
Test Reason : WEAKNESS Blood Pressure : */* mmHG Vent. Rate : 70 BPM Atrial Rate : 70 BPM P-R Int : 124 ms QRS Dur : 72 ms QT Int : 380 ms P-R-T Axes : 5 16 55 degrees QTcB Int : 410 ms Normal sinus rhythm Normal ECG When compared with ECG of 03-Sep-2024 14:37, No significant change was found Referred By: Slade Knox Electronically Signed By: Leo Vuong
--- NOTE | 2024-09-20 13:16 | PC.NURSE ---
PT IV access obtained 20G in right hand & blood work obtained as well provider at bedside going over procedure and consent form with patient. Patient verbalizes understanding of procedure and risks, consent form signed.
[2024-09-20 13:19] LABS: MANUAL DIFF FLAG NO
--- NOTE | 2024-09-20 13:20 | PC.NURSE ---
This nurse is at bedside with performing LP, Time out done at 1323.
[2024-09-20 13:22] LABS: Basophils Absolute Auto 0.1 X10*3/uL (0.0-0.2); Basophils Percent Auto 0.6 % (0-2); Eosinophils Absolute Auto 0.1 X10*3/uL (0.0-0.4); Hematocrit 47.2 % (42.0-52.0); Hemoglobin 16.2 g/dl (14.0-18.0); Imm Gran Abs Auto 0.02 X10*3/uL (0.00-0.03); Imm Gran Pct Auto 0.2 % (0.0-0.4); Lymphocytes Absolute Auto 2.8 X10*3/uL (1.2-4.9); Lymphocytes Percent Auto 33.5 % (20-40); Mean Corpuscular HGB Conc 34.3 g/dl (31.0-36.0); Mean Corpuscular Hemoglobin 29.7 pg (27.0-33.0); Mean Corpuscular Volume 86.4 fL (80.0-98.0); Mean Platelet Volume 9.1 fL (9.4-12.4); Monocytes Absolute Auto 0.7 X10*3/uL (0.1-1.2); Monocytes Percent Auto 7.8 % (2-11); Neutrophils Absolute Auto 4.8 x10*3/uL (2.0-8.3); Neutrophils Percent Auto 56.9 % (45-73); Platelet Count 253 X10*3/uL (160-400); Red Blood Count 5.46 X10*6/uL (4.60-5.80); Red Cell Distribution Width 13.2 % (11.0-16.0); White Blood Count 8.4 X10*3/uL (4.8-10.8)
[2024-09-20 13:36] VITALS: BP 166/81; PULSE 63; RESP 15; TEMP 36.8; O2SAT 99
--- NOTE | 2024-09-20 13:36 | PC.NURSE ---
LP procedure done, Provider collected specimens. VS updates patient resting quietly.
[2024-09-20 13:46] LABS: Alanine Aminotransferase 25 U/L (0-40); Albumin Level 4.4 g/dL (3.5-5.0); Alkaline Phosphatase 64 U/L (39-117); Anion Gap 14 (12-20); Aspartate Amino Transferase 32 U/L (5-37); Bilirubin Direct 0.1 mg/dL (0.0-0.5); Bilirubin Total 0.4 mg/dL (0.0-1.0); Blood Urea Nitrogen 19 mg/dL (9-16); C Reactive Protein < 0.10 mg/dL (< or = 0.50); Calcium 9.2 mg/dL (8.4-10.2); Carbon Dioxide 25 mmol/L (22-29); Chloride 106 mmol/L (96-108); Creatinine Clr Calc Pharmacy 132.6; Estimated Glomerular Filt Rate > 60; Glucose Random 89 mg/dL (60-115); Potassium 4.7 mmol/L (3.3-5.1); Sodium 140 mmol/L (135-145); Total Protein 7.7 g/dL (6.5-8.0)
[2024-09-20 14:00] LABS: Erythrocyte Sedimentation Rate 2 MM/HR (0-15)
--- NOTE | 2024-09-20 14:04 | PC.NURSE ---
This nurse brought patient's LP fluid specimens safely to lab, specimens handed to wood preserving plant laborer.
[2024-09-20] MEDS: 0.9 % Sodium Chloride 1,000 ML 999 ML IV (14:15)
[2024-09-20 14:32] LABS: CSF Appearance Clear, Colorless; CSF Tube # 1
[2024-09-20 14:46] LABS: Glucose CSF 55 mg/dL; Total Protein CSF 73.4 mg/dL (15-45)
[2024-09-20 14:51] LABS: Appearance CSF CLEAR; CSF Monos 5 %; CSF Tube # 4; Color CSF COLORLESS; Lymphocytes CSF 95 %; White Blood Cell CSF 2 MM*3
[2024-09-20 14:52] LABS: Red Blood Cell CSF 0 MM*3
[2024-09-20 15:38] LABS: Appearance Urine Clear; Color Urine Yellow; Glucose Urine UA Negative (Negative); Leukocyte Esterase Urine Trace (Negative); Nitrite Urine Negative (Negative); PH 6.5 (5.0-9.0); Specific Gravity - Urine 1.025 (1.005-1.025); UMIC TRIGGER UACC YES; Urine Blood Negative (Negative); Urine Ketones Trace mg/dL (Negative); Urine Protein Negative (Neg-Trace)
[2024-09-20 15:40] LABS: Bacteria Urine None Seen (None Seen); Hyaline Casts Urine 0-2 /LPF (0-2); RBC Urine 0-2 /HPF (0-2); Squamous Epithelial Cell Urine 0-2 /HPF (0-2); WBC Urine 0-5 /HPF (0-5)
[2024-09-20 16:17] VITALS: BP 166/81; PULSE 63; RESP 14; TEMP 36.8; O2SAT 97
[2024-09-20 17:38] LABS: Cryptococcus neoformans/gattii Not Detected (Not Detect.); Enterovirus Not Detected (Not Detect.); Escherichia coli K1 Not Detected (Not Detect.); Haemophilus influenzae Not Detected (Not Detect.); Herpes simplex virus 1 Not Detected (Not Detect.); Herpes simplex virus 2 Not Detected (Not Detect.); Human herpesvirus 6 Not Detected (Not Detect.); Human parechovirus Not Detected (Not Detect.); Listeria monocytogenes Not Detected (Not Detect.); Neisseria meningitidis Not Detected (Not Detect.); Streptococcus agalactiae Not Detected (Not Detect.); Streptococcus pneumoniae Not Detected (Not Detect.); Varicella zoster virus Not Detected (Not Detect.)
[2024-09-20 18:19] VITALS: BP 152/90; PULSE 66; RESP 18; TEMP 36.7; O2SAT 98
[2024-09-20] MEDS: Penicillin G Benzathine 2,400,000 UNIT/4 ML SYRINGE 2400000 UNIT IM (18:34)
[2024-09-20 19:03] VITALS: BP 152/90; PULSE 66; RESP 18; TEMP 36.7; O2SAT 98
[2024-09-21 08:24] LABS: HIV AB/AG Nonreactive (Nonreactive); HIV Num 1 0.09 S/CO (0.00-0.99)
[2024-09-23 14:24] LABS: VDRL Qualitative CSF Nonreactive (Nonreactive)
[2024-09-24 06:13] LABS: Lyme Abs Screen <0.90 index
== END 2024-09-20 19:03 | disposition home or self-care (01) ==
PROVIDERS: Emergency Provider Emergency Medicine; PCP Internal Medicine
DX: A53.9 Syphilis, unspecified (principal); R53.1 Weakness; F32.A Depression, unspecified; H93.13 Tinnitus, bilateral; Z79.899 Other long term (current) drug therapy
CPT/HCPCS: 36415; 62272; 70450; 80048; 80076; 81001; 82945; 84157; 85025; 85652; 86140; 86592; 86617; 86618; 87015; 87070; 87205; 87389; 87476; 87483; 89051; 93005; 96372; 99285; J0561

== ENCOUNTER → 2024-09-20 12:53 | Outpatient (BNV) | payer MEDICAID, SELFPAY | PROVIDERS: Emergency Provider Emergency Medicine; PCP Internal Medicine; Visit Provider Internal Medicine Cardiovascular Disease | DX: R53.1 Weakness (principal) | CPT/HCPCS: 93010 ==

== ENCOUNTER → 2024-09-20 13:56 | Outpatient (BNV) | payer MEDICAID, SELFPAY | PROVIDERS: Emergency Provider Emergency Medicine; PCP Internal Medicine; Visit Provider Radiology Diagnostic Radiology | DX: H53.8 Other visual disturbances (principal); H93.19 Tinnitus, unspecified ear | CPT/HCPCS: 70450 ==

== ENCOUNTER 2024-09-23 14:41 | Outpatient (AMB) | payer MEDICAID, SELFPAY ==
--- NOTE | 2024-09-23 14:37 | MHC.OFFVIS ---
Vital Signs 09/23/24 15:09 Height 6 ft 1 in Weight 270 lb BMI 35.6 Pulse 82 Pulse Source Pulse Oximeter Pulse Oximetry (%) 98 Oxygen Delivery Method Room Air Intake Visit Reasons: syphilis Allergies No Known Allergies Allergy (Verified 09/23/24 16:20) HPI HPI syphilis: Details: He has hearing loss last few months and blurry vision and positive syphilis titer1 :8. PFSH Medical History Lyme disease Obesity Depression Anxiety Insomnia Constipation Surgical History H/O umbilical hernia repair Social History Household Members: Family Housing: House Do you presently have visiting nurse or other home services: No Alcohol intake: current Alcohol intake frequency: holidays/special occasions only Patient Tobacco Use Status: Never used Tobacco e-Cigarette/Vaping Use: Never Used Second Hand Smoke Exposure: No service: No Review of Systems Const All systems reviewed & are unremarkable except as noted in HPI and below Physical Exam Vital Signs: Last Vital Signs Pulse 82 09/23/24 15:09 Pulse Ox 98 09/23/24 15:09 Oxygen Delivery Method Room Air 09/23/24 15:09 BMI result Body Mass Index 35.6 Const General: cooperative Orientation/consciousness: patient oriented x3 HEENT Head: Yes normal to inspection Mouth: Normal oral and palatal mucosa present Eyes General: appearance normal, both eyes and all related structures Pupils: Equal, round and reactive pupils present Resp Effort & Inspection: normal respiratory effort Cardio Rate: regular rate Rhythm: regular rhythm GI Palpation (GI): Soft to palpation and nontender General: Yes no CVA tenderness Back/Spine/Pelvis Back: no CVA tenderness Skin General skin exam: no rashes or lesions noted Neuro General: patient oriented x3 Cranial nerves: Yes CN's II-XII intact bilaterally and Yes Equal, round and reactive pupils present Extrem General: Yes normal to inspection Psych Appearance: grossly normal Assessment & Plan Assessment & Plan (1) Neurosyphilis: Comment: possible 14 d IV PCN and then 2.4mU when that is done Code(s): A52.3 - Neurosyphilis, unspecified Category: Medical Plan: na Coding Level of Care Code New Pt Level 3 (13632) Diagnoses Neurosyphilis A52.3
[2024-09-23 15:09] VITALS: PULSE 82; O2SAT 98; BMI 35.6
--- OUTSIDE RECORDS SUMMARY | 2024-09-23 16:13 | XMS_ITS | Data Portability ---
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 [email or web address] Not Available 12/03 12:06:14 Result Notes None recorded. Problems Name Problem SNOMED Code Status Onset Date Resolution Date Notes Provider Name and Address Organization Details Recorded Time Bilateral tinnitus [id number] Active 2023 MISSY ZUÑIGA, CLEMENT [address] [facility],[address], [place], [phone], [facility] - [facility] 4 10:00:15 Problem Notes None recorded. Procedures Surgical History Date Name Laterality Status Provider Name and Address Organization Details Recorded Time 4 Comp Audio with Tymps - 77193 & 50629 completed MISSY ZUÑIGA, AUD [address] [facility] [address], [place], [address], [facility] - [facility] 12/21/2023 10:02:10 hernia repair completed Ly Yancey [facility] 12/21/2023 10:05:17 Imaging Results None recorded. Procedure Notes None recorded. Medical Equipment None Reported. Allergies Allergen ID Allergen Name Allergen Category Reaction Reaction Severity Criticality Documentation Date Start Date Code Code System Note Provider Name and Address Organization Details Recorded Time 235443 tramadol medicatio n Not available Not available Not available 12/21/2023 97045 RxNorm Ly richey [place] - [facility] 4 10:03:23 Medications Name Sig Start [...] TABLETS BY MOUTH ONCE DAILY AT BEDTIME 09/19 /2024 completed Not Available Not Available Not Available [...] Details Last Updated DateTime 12/21/2023 185.42 cm 365954.09 g 33 kg/m2 Ly Yancey [place] - [facility] 12/21/2023 10:20:33 Social History None recorded. Functional Status None recorded. Mental Status None recorded. Family History Nothing Reported. Medical History Condition Response Depression Y Anxiety Y Diabetes Y Hyperlipidemia Y Hypertension Y Past Encounters Encounter ID Performer Location Encounter Start Date Encounter Closed Date Diagnosis/Indication Diagnosis SNOMED-CT Code Diagnosis ICD10 Code Diagnosis Note [id number] MAT COSTA PA-C [facility] [address] [id number] 12/21/2023 09:40:01 12/21/2023 11:48:47 Bilateral tinnitus [id number] 102 H93.13 Right Ear:Essent ially normal hearing [...] Mao Member ID Guarantor Name 12/21/2023 1 [place]: [facility] Marcellus Dominguez [id number] Marcellus Dominguez Notes Date Note Type Note [...] had an otologic surgery. MAT COSTA PA-C [address] [place] [address], [phone], [facility] - [facility] 12/21/2023 10:52:52
== END 2024-09-23 15:16 | disposition home or self-care (01) ==
LOC: HO.HCC 14:41
PROVIDERS: PCP Internal Medicine; Visit Provider Internal Medicine
DX: A52.3 Neurosyphilis, unspecified (principal)
CPT/HCPCS: 99203

== ENCOUNTER → 2024-09-23 14:41 | Outpatient (BNVA) | payer MEDICAID, SELFPAY | PROVIDERS: PCP Internal Medicine; Visit Provider Internal Medicine | DX: A52.3 Neurosyphilis, unspecified (principal) | CPT/HCPCS: 99202 ==

== ENCOUNTER 2024-09-23 15:29 | Inpatient (IN) | payer MEDICAID, SELFPAY ==
--- NOTE | ~2024-09-23 | MR_ITS ---
EXAMINATION: MRI BRAIN/ORBITS WITHOUT CONTRAST CLINICAL INFORMATION: Neurosyphilis, assess optic and ear involvement. COMPARISON: None available. TECHNIQUE: MRI of the brain and orbits was obtained using routine sequences without contrast. Please note the patient refused IV contrast administration. Examination was performed on a 1.5 Leonora Siemens high-field unit. FINDINGS: BRAIN: There is no diffusion restriction. There is no intracranial hemorrhage, acute infarction, mass effect, or edema. Ventricles, sulci, and cisterns are normal in size and configuration for patient age. No shift of midline. No abnormal hemosiderin deposition is identified. There are no discrete white matter signal abnormalities identified. No mesial temporal signal abnormalities. There is a prominent perivascular space identified in the left superior [place]. Normal CSF signal in the IACs, prepontine cistern, CP angle cisterns, and labyrinthine structures. The 7th and 8th cranial nerves have normal course and caliber. Midline structures appear normally formed. The pituitary gland appears normal. Posterior fossa structures appear normal. Cerebellar tonsils are appropriately located. Major flow voids are preserved within the skull base. Small amount of fluid in the right mastoid tip. The mastoids and tympanic cavities are otherwise normally aerated. No suspicious bone marrow changes are evident. Atlantoaxial joint is normal. ORBITS: The globes are intact. Lenses are appropriately located. The optic nerves and chiasm have normal signal. No signal abnormality or lesions seen. There is normal CSF volume in the optic nerve sheath complexes. There is no intraconal, conal, or extraconal abnormality. Paranasal sinuses are clear bilaterally. Nasal septum is midline without spur. No extracranial soft tissue abnormalities. MR/MR orbits face neck wo con IMPRESSION: 1. Somewhat limited examination, as the patient refused IV contrast material. 2. No evidence of intracranial hemorrhage, acute infarction, mass effect, or edema. 3. There are no discrete white matter signal abnormalities identified. 4. The globes, orbits, and optic nerves have normal signal. 5. Normal CSF signal in the IACs and labyrinthine structures. 7th and 8th cranial nerves have normal course and caliber. 6. No limited MR evidence of neurosyphilis involvement. Electronically signed by: Garett Smith MD 09/24/2024 03:46 PM EDT
--- NOTE | ~2024-09-23 | XR_ITS ---
CLINICAL HISTORY: pain weakness 4 view right shoulder Comparison: None provided Findings: No acute fracture. No dislocation. Degenerative changes of humeral head and of the acromioclavicular joint. No erosions. No radiopaque foreign body. IMPRESSION: 1. No acute findings This document has been electronically signed by: Lily Salinas MD on 09/23/2024 21:36:07
--- NOTE | ~2024-09-23 | XR_ITS ---
CLINICAL HISTORY: left shoulder pain weakness 4 view left shoulder Comparison: None provided Findings: No acute fracture. No dislocation. Degenerative changes of the acromioclavicular joint. No erosions. No radiopaque foreign body. IMPRESSION: 1. No acute findings This document has been electronically signed by: Lily Salinas MD on 09/23/2024 21:38:45
--- NOTE | ~2024-09-23 | CT_ITS ---
EXAMINATION: CT CHEST WITHOUT CONTRAST CLINICAL INFORMATION: Suspect abnormal course of a PICC COMPARISON: None available. TECHNIQUE: Multidetector volumetric CT imaging of the chest was done. Axial MIP volume rendering provided. Sagittal and coronal reformatted images were obtained. This CT examination was performed using dose optimization techniques as appropriate, variously including the following: *Automated exposure control *Adjustment of mA and/or kV according to patient size (this includes techniques or standardized protocols for targeted exams where dose is matched to indication/reason for exam; i.e. extremities or head) *Use of iterative reconstruction technique DLP:281 mGY*cm FINDINGS: LUNGS: There is minimal dependent atelectasis in the posterior base of the left lower lobe. MEDIASTINUM: There is an abnormal course of the superior vena cava. It crosses from right to left, anterior to the great vessels of the aortic arch. It likely drains into the coronary sinus which then drains into the right atrium or possibly directly into the lower right atrium. There is a small superior vena cava branch that extends along the right side of the mediastinum and courses posterior to the trachea, possibly draining into a paraspinal vein. The IVC drains into the right atrium. CORONARY ARTERY CALCIFICATION: Present PLEURA: There is no pleural effusion. No pleural mass or thickening. AXILLA: No lymphadenopathy. UPPER ABDOMEN: Unremarkable. OSSEOUS STRUCTURES: Flowing osteophytes are present anteriorly in the midthoracic spine with minimal loss of disc height. CT/CT chest wo IV con IMPRESSION: Persistent left superior vena cava appears to drain either into the right atrium or into the coronary sinus. To rule out any direct communication with the left atrium, consider injecting the PICC with iodinated contrast under fluoroscopy. There are changes in the midthoracic spine consistent with diffuse idiopathic skeletal hyperostosis (DISH). Fleischner guidelines were followed. Electronically signed by: Hossein Alvarado MD 09/24/2024 12:36 PM EDT
--- NOTE | ~2024-09-23 | XR_ITS ---
EXAMINATION: XR CHEST 1 VIEW HISTORY: line placement COMPARISON: There are no prior studies available for comparison. FINDINGS: Two AP portable views of the chest performed at 10:59 AM are submitted. A right-sided PICC line is noted which crosses the midline with the tip just inferior to the aortic arch. The lungs are expanded and clear. There is no pleural effusion, pneumothorax, or pulmonary vascular congestion. The heart is normal in size. There is degenerative disc disease of the spine. XR/XR chest 1V IMPRESSION: The right-sided PICC line crosses the midline with the tip just below the aortic arch. This may be within the arterial system or a venous anomaly. Further evaluation with chest CT is recommended. These findings were discussed with Rick Munoz MD on 09/24/2024 at 11:20 AM. Electronically signed by: Esdras Guillen MD 09/24/2024 11:20 AM EDT
[2024-09-23 16:16] VITALS: BP 133/82; PULSE 70; RESP 18; TEMP 36.8; O2SAT 96; BMI 34.8
--- NOTE | 2024-09-23 16:18 | ED_ITS ---
HPI - General Adult General Chief complaint: Neuro Symptoms/Deficit Stated complaint: brought down from infectious dis Time Seen by Provider: 09/23/24 17:40 Related Data Previous Rx's ?Medication ?Instructions ?Recorded acetaminophen 325 mg tablet 650 mg (2 x 325 mg) PO Q6H PRN 09/25/24 Pain, Mild 1-3,Fever,Headache #30 tabs amlodipine 5 mg tablet 5 mg PO DAILY #90 tabs 09/25 magnesium hydroxide 400 mg/5 mL 30 ml PO DAILY PRN Con stipation 09/25/24 oral suspension (Milk of Magnesia) #30 mL melatonin 3 mg tablet 6 mg (2 x 3 mg) PO BEDTIME P RN 09/25/24 Insomnia #30 tabs penicillin G potassium 5 million 4,000,000 unit IV Q4H 13 days #78 09/25/24 unit solution for injection ea (Pfizerpen-G) polyethylene glycol 3350 17 gram 17 g PO DAILY #30 ea 09/25/24 oral powder packet Allergies Allergy/AdvReac Type Severity Reaction Status Date / Time No Known Allergies Allergy Verified 09/23/24 16:20 [facility] Past Medical History Medical History Lyme disease Obesity Depression Anxiety Insomnia Constipation Surgical History H/O umbilical hernia repair Social History Social History Household Members: Family Housing: House Do you presently have visiting nurse or other home services: No Alcohol intake: current Alcohol intake frequency: holidays/special occasions only Patient Tobacco Use Status: Never used Tobacco e-Cigarette/Vaping Use: Never Used Second Hand Smoke Exposure: No service: No Physical Exam ED Vital Signs: BMI result Body Mass Index 34.8 Course Course Course Narrative: This is an RME: Additional HPI, ROS, PE not included below will be deferred to primary provider. RME assessment and note performed by: Laurie Tamayo PA-C This is a [id number]-male who presents to the ER with concerns for neurosyphilis. He has multiple complaints including nerve facial pain, insomnia x year, dental decay, swamp mouth . Was seen at infectious disease and was told to report back to the ED for re-evaluation. Plan: Labs, further ER eval needed Reevaluation(s) Reevaluation #1: duplicate note, see other note. Medications Administered Discontinued Medications Generic Name Dose Route Start Last Admin Trade Name Sherry PRN Reason Stop Dose Admin Acetaminophen 650 mg 09/23/24 19:43 09/25/24 11:24 Acetaminophen 325 Mg Tablet PO 650 mg Q6H PRN Administration Pain, Mild 1-3,fever,headache Amlodipine Besylate 5 mg 09/24/24 09:15 09/25/24 08:04 Amlodipine Besylate 5 Mg Tablet PO 5 mg DAILY [facility] Administration Protocol Bisacodyl 10 mg 09/23/24 20:10 09/23/24 21:03 Bisacodyl 10 Mg Supp.Rect AR 09/23/24 20:11 10 mg ONCE ONE Administration Heparin Sodium (Porcine) 50 0 units 09/24/24 16:00 09/25/24 10:30 units/ Sodium Chloride 5 ml IVFLUSH 50 unit QSPRFT [facility] Administration Enoxaparin Sodium 40 mg 09/23/24 20:00 09/24/24 20:21 Enoxaparin Sodium 40 Mg/0.4 Ml Syringe SUBCUT Not Given Q24H [facility] Penicillin G Potassium 4,000, 100 mls @ 200 mls/hr 09/23/24 20:00 09/25/24 16:36 000 unit/ Sodium Chloride IV Infused Q4H [facility] Infusion Omeprazole 20 mg 09/24/24 06:30 09/24/24 06:25 Omeprazole 20 Mg Capsule.Dr PO Not Given DAILY@0630 [facility] Polyethylene Glycol 17 gm 09/23/24 20:00 09/25/24 08:05 Polyethylene Glycol 3350 17 Gm Powd.Pack PO Not Given DAILY [facility] Senna 17.2 mg 09/23/24 21:00 09/24/24 20:20 Sennosides 8.6 Mg Tablet PO 17.2 mg BEDTIME [facility] Administration Sodium Chloride 3 ml 09/24/24 00:00 09/25/24 16:06 0.9 % Sodium Chloride Flush 3 Ml Syringe IVFLUSH [facility] Medical Decision Making Lab Data 09/24/24 05:46 09/24/24 05:45 Labs: Lab Results 09/23/24 Range/Units 18:19 WBC 7.6 (4.8-10.8) X10*3/uL RBC 5.01 (4.60-5.80) X10*6/uL Hgb 14.9 (14.0-18.0) g/dl Hct 43.5 (42.0-52.0) % MCV 86.8 (80.0-98.0) fL MCH 29.7 (27.0-33.0) pg MCHC 34.3 (31.0-36.0) g/dl RDW 12.9 (11.0-16.0) % Plt Count 238 (160-400) X10*3/uL MPV 9.6 (9.4-12.4) fL Immature Gran % (Auto) 0.8 H (0.0-0.4) % Neut % (Auto) 57.6 (45-73) % Lymph % (Auto) 33.7 (20-40) % [place] % (Auto) 6.2 (2-11) % Eos % (Auto) 1.0 (0-4) % Baso % (Auto) 0.7 (0-2) % Lymph # (Auto) 2.6 (1.2-4.9) X10*3/uL [place] # (Auto) 0.5 (0.1-1.2) X10*3/uL Eos # (Auto) 0.1 (0.0-0.4) X10*3/uL Baso # (Auto) 0.1 (0.0-0.2) X10*3/uL Abs Immat Gran (auto) 0.06 H (0.00-0.03) X10*3/uL Absolute Neuts (auto) 4.4 (2.0-8.3) x10*3/uL Absolute Nucleated RBC 0.000 (0.0-0.012) X10*3/uL Nucleated RBC % (auto) 0.0 (0.0-0.2) /100WBC ESR 6 (0-15) MM/HR Sodium 139 (135-145) mmol/L Potassium 3.9 (3.3-5.1) mmol/L Chloride 107 (96-108) mmol/L Carbon Dioxide 25 (22-29) mmol/L Anion Gap 11 L (12-20) BUN 14 (9-16) mg/dL Creatinine 0.79 (0.5-1.4) mg/dL Estim Creat Clear Calc 134.6 Estimated GFR > 60 Random Glucose 176 H (60-115) mg/dL Calcium 9.0 (8.4-10.2) mg/dL Magnesium 2.0 (1.6-2.6) mg/dL Total Bilirubin 0.4 (0.0-1.0) mg/dL Direct Bilirubin 0.2 (0.0-0.5) mg/dL AST 21 (5-37) U/L ALT 22 (0-40) U/L Alkaline Phosphatase 67 (39-117) U/L C-Reactive Protein < 0.10 (< or = 0.50) mg/dL Total Protein 7.1 (6.5-8.0) g/dL Albumin 4.2 (3.5-5.0) g/dL Discharge Plan Discharge Clinical Impression: Syphilis in male Patient Disposition: Admitted As Inpatient Interventions: Admission Worksheet (ED) Last Done: 09/23/24 21:13 Discharge Date/Time: 09/23/24 21:13
--- NOTE | 2024-09-23 17:40 | ED.NEUROSD ---
HPI - Neuro Symptoms/Deficit General Chief Complaint: Neuro Symptoms/Deficit Stated Complaint: brought down from infectious dis Time Seen by Provider: 09/23/24 17:40 History of Present Illness ED Provider: nell HPI Narrative: Sent by ID for admit/MRI/IV PCN ID Dr. Win: Going to need PICC for 4every 4h penicillin fir 14 d. MRI brain with contrast and optic and otic views. [place] really dizzy and can?t walk well so cardiac workup. Neurology Related Data Home Medications ?Medication ?Instructions ?Recorded ?Confirmed No Known Home Meds 09/23/24 09/23/24 Allergies Allergy/AdvReac Type Severity Reaction Status Date / Time No Known Allergies Allergy Verified 09/23/24 16:20 PMFSH Past Medical History Medical History Lyme disease Obesity Depression Anxiety Insomnia Constipation Surgical History H/O umbilical hernia repair Social History Social History Household Members: Family Housing: House Do you presently have visiting nurse or other home services: No Alcohol intake: current Alcohol intake frequency: holidays/special occasions only Patient Tobacco Use Status: Never used Tobacco e-Cigarette/Vaping Use: Never Used Second Hand Smoke Exposure: No service: No Physical Exam Vital Signs: Vital Signs: Last Vital Signs Temp 98 F 09/24/24 19:25 Pulse 63 09/24/24 19:25 Resp 18 09/24/24 19:25 BP 146/78 H 09/24/24 19:25 Pulse Ox 99 09/24/24 19:25 O2 Del Method Room Air 09/24/24 19:25 BMI result Body Mass Index 34.8 Medications Administered Generic Name Dose Route Start Last Admin Trade Name Freq PRN Reason Stop Dose Admin Amlodipine Besylate 5 mg 09/24/24 09:15 09/24/24 12:30 Amlodipine Besylate 5 Mg Tablet PO 5 mg DAILY [facility] Administration Protocol Heparin Sodium (Porcine) 50 0 units 09/24/24 16:00 09/24/24 16:15 units/ Sodium Chloride 5 ml IVFLUSH Not Given QSHIFT [facility] Enoxaparin Sodium 40 mg 09/23/24 20:00 09/24/24 20:21 Enoxaparin Sodium 40 Mg/0.4 Ml Syringe SUBCUT Not Given Q24H [facility] Penicillin G Potassium 4,000, 100 mls @ 200 mls/hr 09/23/24 20:00 09/24/24 20:20 000 unit/ Sodium Chloride IV 200 mls/hr Q4H JOSE Administration Polyethylene Glycol 17 gm 09/23/24 20:00 09/24/24 07:11 Polyethylene Glycol 3350 17 Gm Powd.Pack PO Not Given DAILY JOSE Senna 17.2 mg 09/23/24 21:00 09/24/24 20:20 Sennosides 8.6 Mg Tablet PO 17.2 mg BEDTIME JOSE Administration Sodium Chloride 3 ml 09/24/24 00:00 09/24/24 16:24 0.9 % Sodium Chloride Flush 3 Ml Syringe IVFLUSH 3 ml QSHIFT JOSE Administration Discontinued Medications Generic Name Dose Route Start Last Admin Trade Name Freq PRN Reason Stop Dose Admin Bisacodyl 10 mg 09/23/24 20:10 09/23/24 21:03 Bisacodyl [address] 09/23/24 20:11 10 mg ONCE ONE Administration Omeprazole 20 mg 09/24/24 06:30 09/24/24 06:25 Omeprazole 20 Mg Capsule.Dr JOHN Not Given DAILY@0630 [facility] Medical Decision Making Medical Decision Making [facility] Narrative: 59-year-old male sent in by infectious disease. Two weeks ago received syphilis diagnosis presumably with blood RPR. Now with ringing in the ears vague vertiginous symptoms and off balance. He is not ataxic here has no nystagmus or focal neuro deficits. Vital signs are stable he is afebrile no nuchal rigidity. No injuries recently. No indication for emergent imaging. Basic labs admit for MR and penicillin per ID. Differential Diagnosis Neurologic syphilis infection. BPV or other benign peripheral vertiginous process. Lab Data [facility] Lab Attestation statement: I reviewed the patient's lab results. 09/24/24 05:46 09/24/24 05:45 Labs: Lab Results 09/23/24 Range/Units 18:19 WBC 7.6 (4.8-10.8) X10*3/uL RBC 5.01 (4.60-5.80) X10*6/uL Hgb 14.9 (14.0-18.0) g/dl Hct 43.5 (42.0-52.0) % MCV 86.8 (80.0-98.0) fL MCH 29.7 (27.0-33.0) pg MCHC 34.3 (31.0-36.0) g/dl RDW 12.9 (11.0-16.0) % Plt Count 238 (160-400) X10*3/uL MPV 9.6 (9.4-12.4) fL Immature Gran % (Auto) 0.8 H (0.0-0.4) % Neut % (Auto) 57.6 (45-73) % Lymph % (Auto) 33.7 (20-40) % [place] % (Auto) 6.2 (2-11) % Eos % (Auto) 1.0 (0-4) % Baso % (Auto) 0.7 (0-2) % Lymph # (Auto) 2.6 (1.2-4.9) X10*3/uL [place] # (Auto) 0.5 (0.1-1.2) X10*3/uL Eos # (Auto) 0.1 (0.0-0.4) X10*3/uL Baso # (Auto) 0.1 (0.0-0.2) X10*3/uL Abs Immat Gran (auto) 0.06 H (0.00-0.03) X10*3/uL Absolute Neuts (auto) 4.4 (2.0-8.3) x10*3/uL Absolute Nucleated RBC 0.000 (0.0-0.012) X10*3/uL Nucleated RBC % (auto) 0.0 (0.0-0.2) /100WBC ESR 6 (0-15) MM/HR Sodium 139 (135-145) mmol/L Potassium 3.9 (3.3-5.1) mmol/L Chloride 107 (96-108) mmol/L Carbon Dioxide 25 (22-29) mmol/L Anion Gap 11 L (12-20) BUN 14 (9-16) mg/dL Creatinine 0.79 (0.5-1.4) mg/dL Estim Creat Clear Calc 134.6 Estimated GFR > 60 Random Glucose 176 H (60-115) mg/dL Calcium 9.0 (8.4-10.2) mg/dL Magnesium 2.0 (1.6-2.6) mg/dL Total Bilirubin 0.4 (0.0-1.0) mg/dL Direct Bilirubin 0.2 (0.0-0.5) mg/dL AST 21 (5-37) U/L ALT 22 (0-40) U/L Alkaline Phosphatase 67 (39-117) U/L C-Reactive Protein < 0.10 (< or = 0.50) mg/dL Total Protein 7.1 (6.5-8.0) g/dL Albumin 4.2 (3.5-5.0) g/dL Discharge Plan Discharge Clinical Impression: Syphilis in male Patient Disposition: Admitted As Inpatient Interventions: Admission Worksheet (ED) Last Done: 09/23/24 21:13 Discharge Date/Time: 09/23/24 21:13
[2024-09-23 18:23] LABS: MANUAL DIFF FLAG NO
--- NOTE | 2024-09-23 18:32 | PC.NURSE ---
mri screening form form completed and in chart ready to be faxed to MRI when it is ordered
[2024-09-23 18:41] LABS: Basophils Absolute Auto 0.1 X10*3/uL (0.0-0.2); Basophils Percent Auto 0.7 % (0-2); C Reactive Protein < 0.10 mg/dL (< or = 0.50); Eosinophils Absolute Auto 0.1 X10*3/uL (0.0-0.4); Hematocrit 43.5 % (42.0-52.0); Hemoglobin 14.9 g/dl (14.0-18.0); Imm Gran Abs Auto 0.06 X10*3/uL (0.00-0.03); Imm Gran Pct Auto 0.8 % (0.0-0.4); Lymphocytes Absolute Auto 2.6 X10*3/uL (1.2-4.9); Lymphocytes Percent Auto 33.7 % (20-40); Mean Corpuscular HGB Conc 34.3 g/dl (31.0-36.0); Mean Corpuscular Hemoglobin 29.7 pg (27.0-33.0); Mean Corpuscular Volume 86.8 fL (80.0-98.0); Mean Platelet Volume 9.6 fL (9.4-12.4); Monocytes Absolute Auto 0.5 X10*3/uL (0.1-1.2); Monocytes Percent Auto 6.2 % (2-11); Neutrophils Absolute Auto 4.4 x10*3/uL (2.0-8.3); Neutrophils Percent Auto 57.6 % (45-73); Platelet Count 238 X10*3/uL (160-400); Red Blood Count 5.01 X10*6/uL (4.60-5.80); Red Cell Distribution Width 12.9 % (11.0-16.0); White Blood Count 7.6 X10*3/uL (4.8-10.8)
[2024-09-23 18:43] LABS: Alanine Aminotransferase 22 U/L (0-40); Albumin Level 4.2 g/dL (3.5-5.0); Alkaline Phosphatase 67 U/L (39-117); Anion Gap 11 (12-20); Aspartate Amino Transferase 21 U/L (5-37); Bilirubin Direct 0.2 mg/dL (0.0-0.5); Bilirubin Total 0.4 mg/dL (0.0-1.0); Blood Urea Nitrogen 14 mg/dL (9-16); Carbon Dioxide 25 mmol/L (22-29); Chloride 107 mmol/L (96-108); Creatinine Clr Calc Pharmacy 134.6; Estimated Glomerular Filt Rate > 60; Glucose Random 176 mg/dL (60-115); Potassium 3.9 mmol/L (3.3-5.1); Sodium 139 mmol/L (135-145); Total Protein 7.1 g/dL (6.5-8.0)
--- NOTE | 2024-09-23 19:46 | PHA.MEDREC ---
Addendum entered by Emmett Bartlett [facility] 09/23/24 19:56: MED REC CHECKED BY [facility] Original Note: Pharmacy Consult ? Medication Reconciliation Pharmacy has completed the medication reconciliation. Spoke with pt and he stated he is not taking any medications at this time.
--- NOTE | 2024-09-23 19:47 | P.HPHOSP_ITS ---
History of Present Illness Date of Service: 09/23/24 Attending physician on admission: Jessica Love Chief Complaint: neuro syphilis Patient is a 59-year-old male with gender identification as guadarrama, men with men with past medical history depression, low testosterone, chronic constipation with straining, hypertension, osteoarthritis bilateral shoulders, umbilical hernia repair, dentition decay, denies history of syphilis or physical symptoms including chancre in genital area but reports at least 1-1-1/2 years of ongoing intermittent symptoms including bilateral shoulder plain with some attribution to osteoarthritis, decaying teeth basically went from 5-12 cavities in less than a year, neuropathic pain in the facial area with no facial droop, ringing in the ears, vague abdominal symptoms including mild pain and nausea, insomnia, dry mouth which may have attributed to patient's dental decay, blotchy rash on face and neck, headache, visual changes and 113 lb weight loss from April 2023 through January 2024. Patient has been tested for hepatitis and HIV and states both are negative. Patient states years ago he was diagnosed with Lyme disease but did not receive treatment as it was a misdiagnosis. Patient stated he used homeopathic remedies and currently he states his Lyme panel is negative. Patient did not receive doxycycline in the past. Patient has not been sexually active for at least 1.5 years when his symptoms started. Patient has not been able to work due to his symptoms. Patient was seen in this ER September 03 and September 20 and RPR testing did come back reactive1:8, T palladium Agg reactive and T palladiumn AB reactive. Patient's Lyme screen for IgG and IgM less than 0.9 and repeat testing on still pending. Lyme disease DNA is still pending. HIV 1 and 2 antibody nonreactive. Recent viral studies for COVID RSV and flu were all negative. Patient has notable weakness in the upper extremities on exam. Two to 3/5 with passive range of motion. Notable pain in bilateral shoulders right greater than left. X-rays of both shoulders have been ordered. Tylenol PRN. EKG negative for any abnormal findings, normal sinus rhythm with a QTC of 410. Patient currently afebrile with hemodynamics currently stable. Patient is not hypoxic. Patient has no leukocytosis or anemia. Platelets are normal in number. Labs otherwise unremarkable and sed rate is pending. Patient denies any history of smoking, alcohol use, illicit drug use or IV drug abuse history. Patient's case has been reviewed by Dr. Kline and ID has been consulted. Patient is now starting penicillin every 4 hours. MRI of the head/brain ordered and pending. Review of Systems 2 Review of Systems: Patient reports continued dry mouth with obvious dental decay but no current acute dental issues. Patient denies any chest pain, shortness of breath at rest or with exertion, abdominal pain but is reporting ongoing issues with severe constipation. Patient often goes 3-4 days without any activity but patient states he does pass gas. Appetite is fair. No recently weight loss but reports 113 lb weight loss from April 2023 to January 2024. Patient denies any falls. Patient reports ongoing insomnia as well. [facility] Medical History Lyme disease Obesity Depression Anxiety Insomnia Constipation Cognitive capacity: Alert and orientated x3 Surgical History H/O umbilical hernia repair Social History Alcohol intake: current Alcohol intake frequency: holidays/special occasions only Use of substances other than those prescribed or required for medical reasons: No Advance Directives: No Advance Directives Information Provided: Yes Ebola Risk: Travel/Contact With Anyone From Affected Area/s: No Has Patient Experienced Ebola Symptoms: No Meds Allergies Allergy/AdvReac Type Severity Reaction Status Date / Time No Known Allergies Allergy Verified 09/23/24 16:20 Active Medications: Current Medications Acetaminophen (Acetaminophen 325 Mg Tablet) 650 mg PO Q6H PRN PRN Reason: Pain, Mild 1-3,fever,headache Calcium Carbonate (Calcium Carbonate 750 Mg Tab.Chew) 750 mg PO Q4H PRN PRN Reason: Heartburn Enoxaparin Sodium (Enoxaparin Sodium 40 Mg/0.4 Ml Syringe) 40 mg SUBCUT Q24H JOSE Penicillin G Potassium 4,000, (000 unit/ Sodium Chloride) 100 mls @ 200 mls/hr IV Q4H JOSE Magnesium Hydroxide (Milk Of Magnesia 30 Ml Oral.Susp) 30 ml PO DAILY PRN PRN Reason: Constipation Melatonin (Melatonin 3 Mg Tablet) 6 mg PO BEDTIME PRN PRN Reason: Insomnia Sodium Chloride (0.9 % Sodium Chloride Flush 3 Ml Syringe) 3 ml IVFLUSH QSHIFT JOSE Home Medications ?Medication ?Instructions ?Recorded ?Confirmed ?Last Taken ?Type No Known Home Meds 09/23/24 09/23/24 Un known History Physical Exam 2 Vital Signs and Narrative: Vital Signs: Last Vital Signs Temp 98.3 F 09/23/24 16:16 Pulse 70 09/23/24 16:16 Resp 18 09/23/24 16:16 BP 133/82 09/23/24 16:16 Pulse Ox 96 09/23/24 16:16 O2 Del Method Room Air 09/23/24 16:16 BMI result Body Mass Index 34.8 Alert and orientated X3, able to give good history. Neuro: CN II-X11 intact, upper extremity weakness noted, visual acuity intact EYES: PERRLA, EOM intactm sclera nonicteric, conjunctiva pink ENT: hearing intact, no issues with swallowing, uvula midline, lips moist, nares patent no epistaxis, dentition in fair repair Cardiac: S1 S2 RRR, II/ systolic murmur, no JVD, no edema in Lower ext Pulmonary: lungs clear to auscultation B Abdominal: BS active in all 4 quadrants, no guarding, tenderness, rebounding, mild distention MSK: strength 2-3/5 upper and 4/5 lower extremities : no CVA tenderness no bladder distension Extremities: no edema in lower extremities, PT and DP pulses palpable +2 Psych: mood anxious, judgement and insight good Skin: Red rough rash left neck, no drainage or crusting noted Results Labs 09/23/24 18:19 09/23/24 18:19 Labs: Laboratory Results - last 24 hr 09/23/24 18:19 MCV 86.8 MCH 29.7 MCHC 34.3 RDW 12.9 Plt Count 238 MPV 9.6 Immature Gran % (Auto) 0.8 H Neut % (Auto) 57.6 Lymph % (Auto) 33.7 [place] % (Auto) 6.2 Eos % (Auto) 1.0 Baso % (Auto) 0.7 Lymph # (Auto) 2.6 [place] # (Auto) 0.5 Eos # (Auto) 0.1 Baso # (Auto) 0.1 Abs Immat Gran (auto) 0.06 H Absolute Neuts (auto) 4.4 Absolute Nucleated RBC 0.000 Nucleated RBC % (auto) 0.0 Anion Gap 11 L Estim Creat Clear Calc 134.6 Estimated GFR > 60 Random Glucose 176 H Calcium 9.0 Magnesium 2.0 Total Bilirubin 0.4 Direct Bilirubin 0.2 AST 21 ALT 22 Alkaline Phosphatase 67 C-Reactive Protein < 0.10 Total Protein 7.1 Albumin 4.2 ECG Attestation: I personally reviewed and interpreted this ECG as follows: (Normal sinus rhythm normal QTC) Prior ECG tracings: available for review Imaging Radiologist's Impressions: MRI of the head pending Assessment and Plan (1) Syphilis in male: Status: Acute Plan Patient is a 59-year-old male with gender identification as guadarrama, men with men with past medical history depression, low testosterone, chronic constipation with straining, hypertension, osteoarthritis bilateral shoulders, umbilical hernia repair, dentition decay is being admitted for syphilis likely secondary without chancre or history of known syphilis. Many of patient's symptoms appear to be neurologically based. ID has been consulted and ordered penicillin q.4 hours. MRI of the brain is pending. Syphilis with positive titer antibody -ID consultation ordered -Penicillin q.4 started -MRI of the brain pending -Unknown timing of exposure, patient states has been sexually inactive for 1.5 years -? [facility] notification -HIV testing negative Bilateral shoulder pain -Patient believes his pain started with his symptoms related to syphilis but could also be related to osteoarthritis -Bilateral x-rays ordered as patient has upper extremity weakness on exam -Tylenol PRN Chronic constipation -Dulcolax suppository 1 time now and p.r.n. -MiraLax daily -Senna at -Will consider lactulose if no success -High-fiber diet -Metamucil p.r.n. Reported history of Lyme disease -Patient states he was diagnosed with Lyme disease years ago but it was not found right away and patient denies treatment with doxycycline -Patient used homeopathic treatment in the past -Current Lyme workup is negative, DNA testing pending Depression anxiety -Patient currently not receiving any prescription treatment or therapy -Monitored for support -Patient denies need for psychiatric consultation -Patient is not currently suicidal -We will consider p.r.n. benzodiazepine treatment if needed DVT prophylaxis: Lovenox PPI prophylaxis: Omeprazole Med rec pending Full Code status Quality Stroke Does the patient have a stroke diagnosis?: No Reason for No Anti-thrombotic by Day Two: N/A - Med Ordered VTE Prior VTE?: No VTE Risk Level:: Medical - moderate - high VTE Device Contraindication: N/A - Device Ordered VTE Drug Contraindication: N/A - Med Ordered
[2024-09-23 19:54] LABS: Erythrocyte Sedimentation Rate 6 MM/HR (0-15)
[2024-09-23 20:34] LABS: Appearance Urine Clear; Color Urine Yellow; Glucose Urine UA Negative (Negative); Leukocyte Esterase Urine Trace (Negative); Nitrite Urine Negative (Negative); PH 5.5 (5.0-9.0); Specific Gravity - Urine 1.025 (1.005-1.025); UMIC TRIGGER UACC YES; Urine Blood Negative (Negative); Urine Ketones Trace mg/dL (Negative); Urine Protein Negative (Neg-Trace)
--- NOTE | 2024-09-23 20:36 | PC.NURSE ---
assumed care of pt. IV placed in R otter arm. Pt tolerate well. Pt ambulated to bathroom with steady gate.
[2024-09-23] MEDS: Penicillin G Potassium 4,000,000 UNIT in 0.9 % Sodium Chloride 100 ML 200 UNIT IV (21:03)
[2024-09-23] MEDS: bisacodyL 10 MG SUPP.RECT PR (21:03)
[2024-09-23 21:07] VITALS: BP 173/80; PULSE 61; RESP 18; TEMP 36.7; O2SAT 95
[2024-09-23 22:26] VITALS: BP 154/85; PULSE 64; RESP 16; TEMP 36.6; O2SAT 97
[2024-09-23 22:29] LABS: Bacteria Urine None Seen (None Seen); Hyaline Casts Urine 0-2 /LPF (0-2); RBC Urine 0-2 /HPF (0-2); Squamous Epithelial Cell Urine 0-2 /HPF (0-2); WBC Urine 0-5 /HPF (0-5)
[2024-09-23 23:02] VITALS: BMI 34.7
[2024-09-24] MEDS: 0.9 % Sodium Chloride Flush 3 ML SYRINGE IVFLUSH ×3 (00:36→16:24)
[2024-09-24] MEDS: Penicillin G Potassium 4,000,000 UNIT in 0.9 % Sodium Chloride 100 ML 200 UNIT IV ×6 (00:37→20:20)
[2024-09-24 03:39] VITALS: BP 140/69; PULSE 54; RESP 16; TEMP 36.2; O2SAT 97
[2024-09-24 05:51] LABS: MANUAL DIFF FLAG NO
[2024-09-24 06:17] LABS: Alanine Aminotransferase 16 U/L (0-40); Albumin Level 3.7 g/dL (3.5-5.0); Alkaline Phosphatase 55 U/L (39-117); Anion Gap 12 (12-20); Aspartate Amino Transferase 19 U/L (5-37); Bilirubin Total 0.6 mg/dL (0.0-1.0); Blood Urea Nitrogen 14 mg/dL (9-16); Calcium 8.8 mg/dL (8.4-10.2); Carbon Dioxide 26 mmol/L (22-29); Chloride 108 mmol/L (96-108); Creatinine Clr Calc Pharmacy 131.2; Estimated Glomerular Filt Rate > 60; Glucose Random 89 mg/dL (60-115); Potassium 4.1 mmol/L (3.3-5.1); Sodium 142 mmol/L (135-145); Total Protein 6.2 g/dL (6.5-8.0)
[2024-09-24 06:17] LABS: Basophils Absolute Auto 0.1 X10*3/uL (0.0-0.2); Basophils Percent Auto 0.9 % (0-2); Eosinophils Absolute Auto 0.1 X10*3/uL (0.0-0.4); Hematocrit 39.3 % (42.0-52.0); Hemoglobin 13.7 g/dl (14.0-18.0); Imm Gran Abs Auto 0.02 X10*3/uL (0.00-0.03); Imm Gran Pct Auto 0.3 % (0.0-0.4); Lymphocytes Absolute Auto 2.9 X10*3/uL (1.2-4.9); Lymphocytes Percent Auto 41.7 % (20-40); Mean Corpuscular HGB Conc 34.9 g/dl (31.0-36.0); Mean Corpuscular Hemoglobin 29.8 pg (27.0-33.0); Mean Corpuscular Volume 85.4 fL (80.0-98.0); Mean Platelet Volume 9.2 fL (9.4-12.4); Monocytes Absolute Auto 0.7 X10*3/uL (0.1-1.2); Neutrophils Absolute Auto 3.2 x10*3/uL (2.0-8.3); Neutrophils Percent Auto 45.1 % (45-73); Platelet Count 218 X10*3/uL (160-400); Red Cell Distribution Width 12.9 % (11.0-16.0)
[2024-09-24 07:57] VITALS: BP 166/88; PULSE 52; RESP 16; TEMP 36.1; O2SAT 96
--- NOTE | 2024-09-24 08:55 | P.PNIM_ITS ---
Subjective Subjective Date of Service: 09/24/24 Interval History: f/u on neuro syphilis Physical Exam 2 Vital Signs: Vital Signs: Last Vital Signs Temp 97.0 F 09/24/24 07:57 Pulse 52 09/24/24 07:57 Resp 16 09/24/24 07:57 BP 166/88 H 09/24/24 07:57 Pulse Ox 96 09/24/24 07:57 O2 Del Method Room Air 09/24/24 07:57 BMI result Body Mass Index 34.7 General: AO X 3, no acute distress Resp: CTA bilateral CVS: S1,S2,RRR GI: +BS, NT, no distention Skin: No rash Neuro: motor grossly intact Psych: appropriate affect Objective Data Active Medications Acetaminophen (Acetaminophen 325 Mg Tablet) 650 mg PO Q6H PRN PRN Reason: Pain, Mild 1-3,fever,headache Albuterol/Ipratropium (Albuterol/Iprat 2.5/0.5mg 3 Ml Ampul.Neb) 3 ml INHALE Q4H PRN PRN Reason: Shortness of Breath/Wheezing Bisacodyl (Bisacodyl 10 Mg Supp.Rect) 10 mg NV BEDTIME PRN PRN Reason: Constipation Calcium Carbonate (Calcium Carbonate 750 Mg Tab.Chew) 750 mg PO Q4H PRN PRN Reason: Heartburn Enoxaparin Sodium (Enoxaparin Sodium 40 Mg/0.4 Ml Syringe) 40 mg SUBCUT Q24H [facility] Last Admin: 09/23/24 21:04 Dose: Not Given Documented By: IRMA Non-Admin Reason: Patient Refused Penicillin G Potassium 4,000, (000 unit/ Sodium Chloride) 100 mls @ 200 mls/hr IV Q4H [facility] Last Infusion: 09/24/24 08:41 Dose: Infused Documented By: BORIS Magnesium Hydroxide (Milk Of Magnesia 30 Ml Oral.Susp) 30 ml PO DAILY PRN PRN Reason: Constipation Melatonin (Melatonin 3 Mg Tablet) 6 mg PO BEDTIME PRN PRN Reason: Insomnia Omeprazole (Omeprazole 20 Mg Capsule.Dr) 20 mg PO DAILY@0630 [facility] Last Admin: 09/24/24 06:25 Dose: Not Given Documented By: KERRI Non-Admin Reason: Patient Refused Ondansetron HCl (Ondansetron Hcl 4 Mg/2 Ml Vial) 4 mg IVPUSH Q8H PRN PRN Reason: Nausea and Vomiting Polyethylene Glycol (Polyethylene Glycol 3350 17 Gm Powd.Pack) 17 gm PO DAILY [facility] Last Admin: 09/24/24 07:11 Dose: Not Given Documented By: BORIS Non-Admin Reason: Patient Refused Senna (Sennosides 8.6 Mg Tablet) 17.2 mg PO BEDTIME [facility] Last Admin: 09/23/24 21:04 Dose: Not Given Documented By: IRMA Non-Admin Reason: Patient Refused Sodium Chloride (0.9 % Sodium Chloride Flush 3 Ml Syringe) 3 ml IVFLUSH QSHIFT [facility] Last Admin: 09/24/24 07:11 Dose: 3 ml Documented By: BORIS Labs 09/24/24 05:46 09/24/24 05:45 Labs: Laboratory Results - last 24 hr 09/23/24 09/23/24 09/24/24 18:19 20:28 05:45 MCV 86.8 MCH 29.7 MCHC 34.3 RDW 12.9 Plt Count 238 MPV 9.6 Immature Gran % (Auto) 0.8 H Neut % (Auto) 57.6 Lymph % (Auto) 33.7 [place] % (Auto) 6.2 Eos % (Auto) 1.0 Baso % (Auto) 0.7 Lymph # (Auto) 2.6 [place] # (Auto) 0.5 Eos # (Auto) 0.1 Baso # (Auto) 0.1 Abs Immat Gran (auto) 0.06 H Absolute Neuts (auto) 4.4 Absolute Nucleated RBC 0.000 Nucleated RBC % (auto) 0.0 ESR 6 Anion Gap 11 L 12 Estim Creat Clear Calc 134.6 131.2 Estimated GFR > 60 > 60 Random Glucose 176 H 89 Calcium 9.0 8.8 Magnesium 2.0 Total Bilirubin 0.4 0.6 Direct Bilirubin 0.2 AST 21 19 ALT 22 16 Alkaline Phosphatase 67 55 C-Reactive Protein < 0.10 Total Protein 7.1 6.2 L Albumin 4.2 3.7 Urine Color Yellow Urine Appearance Clear Urine pH 5.5 Ur Specific Wallace 1.025 Urine Protein Negative Urine Glucose (UA) Negative Urine Ketones Trace Urine Blood Negative Urine Nitrite Negative Ur Leukocyte Esterase Trace H Urine RBC 0-2 Urine WBC 0-5 Ur Squamous Epith Cells 0-2 Urine Bacteria None Seen Hyaline Casts 0-2 09/24/24 05:46 MCV 85.4 MCH 29.8 MCHC 34.9 RDW 12.9 Plt Count 218 MPV 9.2 L Immature Gran % (Auto) 0.3 Neut % (Auto) 45.1 Lymph % (Auto) 41.7 H [place] % (Auto) 10.0 Eos % (Auto) 2.0 Baso % (Auto) 0.9 Lymph # (Auto) 2.9 [place] # (Auto) 0.7 Eos # (Auto) 0.1 Baso # (Auto) 0.1 Abs Immat Gran (auto) 0.02 Absolute Neuts (auto) 3.2 Absolute Nucleated RBC 0.000 Nucleated RBC % (auto) 0.0 ESR Anion Gap Estim Creat Clear Calc Estimated GFR Random Glucose Calcium Magnesium Total Bilirubin Direct Bilirubin AST ALT Alkaline Phosphatase C-Reactive Protein Total Protein Albumin Urine Color Urine Appearance Urine pH Ur Specific Wallace Urine Protein Urine Glucose (UA) Urine Ketones Urine Blood Urine Nitrite Ur Leukocyte Esterase Urine RBC Urine WBC Ur Squamous Epith Cells Urine Bacteria Hyaline Casts Assessment and Plan (1) Neurosyphilis: Status: Acute Plan Patient is a 59-year-old male with gender identification as guadarrama, men with men with past medical history depression, low testosterone, chronic constipation with straining, hypertension, osteoarthritis bilateral shoulders, umbilical hernia repair, dentition decay is being admitted for syphilis likely secondary without chancre or history of known syphilis. Many of patient's symptoms appear to be neurologically based. ID has been consulted and ordered penicillin q.4 hours. MRI of the brain is pending. Syphilis with positive titer, HiV negative, ID recommends Pen G 4 MU q 4, Picc line ordered MRI of brain with and without conctrast brain, orbits and acoustic system Bilateral shoulder pain, negative xray, I ddidn't notice any weakness Chronic constipation bowel regimen Reported history of Lyme disease Patient states he was diagnosed with Lyme disease years ago but it was not found right away and patient denies treatment with doxycycline Patient used homeopathic treatment in the past Current Lyme workup is negative, DNA testing pending Depression anxiety outpatient follow f/u DVT prophylaxis: Lovenox PPI prophylaxis: Omeprazole Med rec pending Full Code status Quality Stroke Does the patient have a stroke diagnosis?: No Reason for No Anti-thrombotic by Day Two: N/A - Med Ordered VTE Prior VTE?: No VTE Risk Level:: Medical - moderate - high VTE Device Contraindication: N/A - Device Ordered VTE Drug Contraindication: N/A - Med Ordered
--- NOTE | 2024-09-24 12:09 | HO.PICC ---
[facility] Diagnosis: NEUROSYPHILIS Indication: SITE IDENTIFICATION SPECIALIST ANTIBX Pertinent Labs: REVIEWED Technique: Following informed consent including risks, benefits and alternatives and using sterile technique including cap and mask, sterile gown, glove and drape, the RIGHT arm was prepped and draped in the usual sterile fashion of full barrier technique with G. Following completion of Crescent Protocol the skin and soft tissues were anesthetized with 1% Lidocaine plain. Using ultrasound guidance, RIGHT CEPHALIC vein access was obtained. Over an 0.018 wire through peel-away sheath, a 4FR SINGLE LUMEN PASV PICC line was positioned. Catheter length is 46CM internal length, 0CM external length, for a total trimmed length of 46CM. The procedure was performed in RM 272. CXR AND CT SCAN WAS ORDERED TO VERIFIED PICC PLACEMENT. Tip located in LEFT SVC VERIFIED BY CT SCAN W/O CONTRAST. Ultrasound was used to document vein patency and for needle entry. A formal ultrasound picture and cardiac rhythm strip was recorded. DR LONG has released the line for use and it is currently dressed with a StatLock, Tegaderm, and CHG disc. Verification has been performed for blood return and line patency. Arm Circumference: 37CM Equipment: BARD POWERPICC SOLO CATHETER WITH SHERLOCK 3CG TIP Catheter Type: 4FR SINGLE LUMEN PASV PICC line Lot #: [id number]
[2024-09-24] MEDS: amLODIPine Besylate 5 MG TABLET PO (12:30)
--- NOTE | 2024-09-24 12:34 | MHC.CM.PN ---
Addendum entered by Astrid Jo RN 09/24/24 16:13: [facility] has offered a bed. No other accepting facilities. MDS and PASRR submitted to [facility]. Original Note: PATIENT LIVES IN A HOME W/ HIS MOTHER AND BROTHER. FUNCTIONALLY INDEPENDENT. DENIES USE OF DME OR SERVICES. PCP WAQAR MARIE MD COMPLETED HCP NAMING HIS MOTHER, JOELLEN, [facility]. DECLINES TO NAME ALTERNATE. DP: PATIENT WILL REQUIRE 14 DAYS OF Q4 IV ABX. DISCUSSED W/ PATIENT WHO AGREES TO SNF PLACEMENT FOR ABX. NO FACILITY PREFERENCE, WOULD LIKE TO STAY IN [place] IF POSSIBLE. AWAITING BED OFFER. WILL NEED PASRR AND MDS. CM WILL CONTINUE TO FOLLOW.
[2024-09-24 15:38] VITALS: BP 153/79; PULSE 82; RESP 18; TEMP 36.4; O2SAT 98
[2024-09-24 19:25] VITALS: BP 146/78; PULSE 63; RESP 18; TEMP 36.6; O2SAT 99
[2024-09-24] MEDS: Sennosides 8.6 MG TABLET 17.2 MG PO (20:20)
[2024-09-25] MEDS: Penicillin G Potassium 4,000,000 UNIT in 0.9 % Sodium Chloride 100 ML 200 UNIT IV ×5 (00:06→16:04)
[2024-09-25] MEDS: Heparin Sodium,Porcine Flush 50 UNITS, 0.9 % Sodium Chloride Flush 5 ML IVFLUSH ×2 (00:52→10:30)
[2024-09-25 03:03] VITALS: BP 161/74; PULSE 68; RESP 20; TEMP 36.6; O2SAT 94
[2024-09-25] MEDS: Acetaminophen 325 MG TABLET 650 MG PO ×2 (04:18→11:24)
[2024-09-25 07:23] VITALS: BP 135/75; PULSE 58; RESP 18; TEMP 36.6; O2SAT 98
[2024-09-25] MEDS: amLODIPine Besylate 5 MG TABLET PO (08:04)
--- NOTE | 2024-09-25 12:58 | MHC.CM.PN ---
Addendum entered by Astrid Jo RN 09/25/24 14:05: Per dc on hold. Facility updated. Original Note: Patient medically cleared for dc and has accepted a bed at [facility] for IV abx q4 x 14days. CM spoke w/ Kira @ [facility] and received approval. S transport scheduled for 4pm. , RN and patient aware.
--- NOTE | 2024-09-25 13:32 | PM.DS ---
DS: Providers Provider Date of Service: 09/25/24 Date of admission: 09/23/24 18:41 Date of discharge: 09/25/24 Primary care physician: Jae Trinidad MD Consults: 09/23/24 19:47 Consult to Infectious Diseases Routine Consulting Provider: [facility] Reason for consultation: neuro syphilis Has provider been notified: Yes DS: Diagnosis Discharge Diagnosis (1) Neurosyphilis: Status: Acute DS: Summary Hospital Course Hospital Course: admission hpi Chief Complaint: neuro syphilis Patient is a 59-year-old male with gender identification as guadarrama, men with men with past medical history depression, low testosterone, chronic constipation with straining, hypertension, osteoarthritis bilateral shoulders, umbilical hernia repair, dentition decay, denies history of syphilis or physical symptoms including chancre in genital area but reports at least 1-1-1/2 years of ongoing intermittent symptoms including bilateral shoulder plain with some attribution to osteoarthritis, decaying teeth basically went from 5-12 cavities in less than a year, neuropathic pain in the facial area with no facial droop, ringing in the ears, vague abdominal symptoms including mild pain and nausea, insomnia, dry mouth which may have attributed to patient's dental decay, blotchy rash on face and neck, headache, visual changes and 113 lb weight loss from April 2023 through January 2024. Patient has been tested for hepatitis and HIV and states both are negative. Patient states years ago he was diagnosed with Lyme disease but did not receive treatment as it was a misdiagnosis. Patient stated he used homeopathic remedies and currently he states his Lyme panel is negative. Patient did not receive doxycycline in the past. Patient has not been sexually active for at least 1.5 years when his symptoms started. Patient has not been able to work due to his symptoms. Patient was seen in this ER September 03 and September 20 and RPR testing did come back reactive1:8, T palladium Agg reactive and T palladiumn AB reactive. Patient's Lyme screen for IgG and IgM less than 0.9 and repeat testing on still pending. Lyme disease DNA is still pending. HIV 1 and 2 antibody nonreactive. Recent viral studies for COVID RSV and flu were all negative. Patient has notable weakness in the upper extremities on exam. Two to 3/5 with passive range of motion. Notable pain in bilateral shoulders right greater than left. X-rays of both shoulders have been ordered. Tylenol PRN. EKG negative for any abnormal findings, normal sinus rhythm with a QTC of 410. Patient currently afebrile with hemodynamics currently stable. Patient is not hypoxic. Patient has no leukocytosis or anemia. Platelets are normal in number. Labs otherwise unremarkable and sed rate is pending. Patient denies any history of smoking, alcohol use, illicit drug use or IV drug abuse history. Patient's case has been reviewed by Dr. Kline and ID has been consulted. Patient is now starting penicillin every 4 hours. MRI of the head/brain ordered and pending Hospital course: Patient is a 59-year-old male with gender identification as guadarrama, men with men with past medical history depression, low testosterone, chronic constipation with straining, hypertension, osteoarthritis bilateral shoulders, umbilical hernia repair, dentition decay is being admitted for syphilis likely secondary without chancre or history of known syphilis. Send to the ED by ID for arrangement for IV Pen G via PICC line and MRI of brain and occular and auditory system. He has been initiated on Pen G IV 4 million units every 4 hours to be continued for 14 days. HIV is negative, he had MONALISA brain and face to include ocular and auditory finding with nos significant finding. A PICC line was inserted on 09/24/24 Bilateral shoulder pain, negative xray, strenght normal Chronic constipation bowel regimen Reported history of Lyme disease Patient states he was diagnosed with Lyme disease years ago but it was not found right away and patient denies treatment with doxycycline Patient used homeopathic treatment in the past Current Lyme workup is negative, DNA testing pending Depression anxiety outpatient follow f/u HTN, blood pressure on high side, started on Norvasc 5 mg daily and to follow up with PCP Dispo: To SNF for IV infusion for NeuroSyphilis Time Attestation Discharge Coordination Time (in mins): 45 Quality: Safe Use of Opioids Does Pt have an Active Cancer Diagnosis on the Problem List?: No Quality: Stroke Does the patient have a stroke diagnosis?: No Physical Exam Vital Signs: Vital Signs: Last Vital Signs Temp 97.8 F 09/25/24 07:23 Pulse 58 09/25/24 07:23 Resp 18 09/25/24 07:23 BP 135/75 09/25/24 07:23 Pulse Ox 98 09/25/24 07:23 O2 Del Method Room Air 09/25/24 07:23 BMI result Body Mass Index 34.7 Discharge Plan Discharge Anticipated Discharge Date/Time: 09/25/24 13:26 Patient Disposition: Xfer SNF Discharge Diagnosis: NeuroSyphiis Referrals: [facility] [Outside] - 1 Day Referral Note: Stay at nursing facility for 14 days of IV antibiotics Jae Trinidad MD [Primary Care Provider, Medical] - 1 Week Diana Kline MD [Physician, Infectious Disease] - 2 Weeks Bay Valverde MD [Physician, Neurology] - 1 Week Referral Note: vague symptoms related to Neurosyphilis ? further testing Discharge Medications: New acetaminophen 325 mg Tablet 650 mg PO Q6H PRN (Reason: Pain, Mild 1-3,Fever,Headache) Qty: 30 0RF polyethylene glycol 3350 17 gram Powder In Packet 17 g PO DAILY Qty: 30 0RF penicillin G potassium [Pfizerpen-G] 5 million unit Recon Soln 4,000,000 unit IV Q4H 13 Days Qty: 78 0RF Rx Instructions: Ending October 08 melatonin 3 mg Tablet 6 mg PO BEDTIME PRN (Reason: Insomnia) Qty: 30 0RF amlodipine 5 mg Tablet 5 mg PO DAILY Qty: 90 0RF Protocol: Hold for SBP< HOLD for SBP < : 90 magnesium hydroxide [Milk of Magnesia] 400 mg/5 mL Suspension 30 ml PO DAILY PRN (Reason: Constipation) Qty: 30 0RF Discharge Orders: Discharge Order (Routine); Ordered 09/25/24 Ordered By: Rick Munoz Diet: Advance to usual diet Activity on Discharge: As tolerated Stand Alone Forms: Patient Portal Discharge page Print Language: Brazilian Care Plan Goals: Recovery from Neurosyphilis Health Concerns: Neurosyphilis Plan of Treatment: Take Penicillin as directed and follow up with infectious disease--for 13 more days, ending October 08 follow up with Neurology and infectious disease on outpatient basis Assessment: see above
[2024-09-25 15:25] VITALS: BP 132/85; PULSE 67; RESP 18; TEMP 36.8; O2SAT 95
--- NOTE | 2024-09-25 22:44 | P.CNID_ITS ---
History of Present Illness Data of Consult Service Date: 09/24/24 Requesting physician: Rick Rose Primary Care Provider: MD CYNTHIA Tiwari Reason for consult: neurologic changes and syphilis titer 1:8 He has one year hearing difficulty,blurry vision and weakness walking. He has syphilis titer 1:8 and denies being treated. He is HIV negative. Review of Systems 2 Review of Systems: Yes all other systems are reviewed and are negative [facility] Past Medical History Medical History Lyme disease Obesity Depression Anxiety Insomnia Constipation Family History Family history: reviewed and not pertinent Surgical History Surgical History H/O umbilical hernia repair Social History Social History Household Members: Family Housing: House Do you presently have visiting nurse or other home services: No Alcohol intake: current Alcohol intake frequency: holidays/special occasions only Patient Tobacco Use Status: Never used Tobacco e-Cigarette/Vaping Use: Never Used Second Hand Smoke Exposure: No service: No Travel History Ebola Risk: Travel/Contact With Anyone From Affected Area/s: No Has Patient Experienced Ebola Symptoms: No Meds Allergies Allergy/AdvReac Type Severity Reaction Status Date / Time No Known Allergies Allergy Verified 09/23/24 16:20 Physical Exam 2 Vital Signs: Vital Signs: Last Vital Signs Temp 98.3 F 09/25/24 15:25 Pulse 67 09/25/24 15:25 Resp 18 09/25/24 15:25 BP 132/85 09/25/24 15:25 Pulse Ox 95 09/25/24 15:25 O2 Del Method Room Air 09/25/24 15:25 BMI result Body Mass Index 34.7 Const: General: cooperative HEENT: Head: Yes normal to inspection Face and sinus: Yes normal facial exam Mouth: Normal oral and palatal mucosa present Teeth and gingiva: d entition normal Eyes: Other: slow to react pupils,accomodate well Pupils: Equal, round and reactive pupils present Resp: Effort & Inspection: normal respiratory effort Cardio: Rate: regular rate Rhythm: regular rhythm GI: Palpation (GI): Soft to palpation and nontender : General: Yes no CVA tenderness Back/Spine/Pelvis: Back: no CVA tenderness Skin: General skin exam: no rashes or lesions noted Neuro: General: moves all extremities Cranial nerves: Yes Equal, round and reactive pupils present Extrem: General: Yes normal to inspection Psych: Appearance: grossly normal Results Labs 09/24/24 05:46 09/24/24 05:45 Assessment and Plan (1) Neurosyphilis: Status: Acute Plan 2 WBC in spinal tap and protein 73 and ear and eye problems qualifies for neurosyphilis even though CSF VDRL is negative. 14 d IV PCN 4 mu every 4 hours. At end of therapy one more dose 2.4 mU IM PCN so see in followup. Syphilis titer in 3 months
== END 2024-09-25 17:41 | disposition skilled nursing facility (03) | DRG 42 ==
LOC: HO.ED 18:05 → HO.EDOVER 19:54 → HO.S3 20:45
PROVIDERS: Nurse Practitioner Family; Physician Assistant Medical; Admitting Provider Internal Medicine; Emergency Provider Emergency Medicine; PCP Internal Medicine; Visit Provider Internal Medicine
DX: A52.3 Neurosyphilis, unspecified (principal); F32.A Depression, unspecified; K59.09 Other constipation; F41.9 Anxiety disorder, unspecified; M25.512 Pain in left shoulder; M25.511 Pain in right shoulder; Z79.899 Other long term (current) drug therapy
CPT/HCPCS: 36415; 36573; 70540; 71045; 71250; 73030; 80048; 80053; 80076; 81001; 83735; 85025; 85652; 86140; 97161; 99285; C1751; J1642; J2540

== ENCOUNTER 2024-09-23 18:41 | Outpatient (BNV) | payer MEDICAID, SELFPAY | END 2024-09-23 20:10 | PROVIDERS: Admitting Provider Internal Medicine; Emergency Provider Emergency Medicine; PCP Internal Medicine; Visit Provider Specialist | DX: M25.511 Pain in right shoulder (principal); M25.512 Pain in left shoulder; R53.1 Weakness | CPT/HCPCS: 73030 ==

== ENCOUNTER 2024-09-23 18:41 | Outpatient (BNV) | payer MEDICAID, SELFPAY | END 2024-09-24 09:58 | PROVIDERS: Admitting Provider Internal Medicine; Emergency Provider Emergency Medicine; PCP Internal Medicine; Visit Provider Radiology Diagnostic Radiology | DX: A52.3 Neurosyphilis, unspecified (principal); Z45.2 Encounter for adjustment and management of vascular access device | CPT/HCPCS: 70540; 71045; 71250 ==

== ENCOUNTER → 2024-09-23 18:41 | Outpatient (BNV) | payer MEDICAID, SELFPAY | PROVIDERS: Admitting Provider Internal Medicine; Emergency Provider Emergency Medicine; PCP Internal Medicine; Visit Provider Internal Medicine | DX: A52.3 Neurosyphilis, unspecified (principal) | CPT/HCPCS: 99222 ==

== ENCOUNTER → 2024-09-23 18:41 | Outpatient (BNV) | payer MEDICAID, SELFPAY | PROVIDERS: Admitting Provider Internal Medicine; Emergency Provider Emergency Medicine; PCP Internal Medicine; Visit Provider Nurse Practitioner Family | DX: A52.3 Neurosyphilis, unspecified (principal) | CPT/HCPCS: 99223; 99232; 99239 ==

== ENCOUNTER 2024-10-16 14:18 | Outpatient (AMB) | payer MEDICAID, SELFPAY ==
--- NOTE | 2024-10-16 14:23 | MHC.OFFVIS ---
Vital Signs 10/16/24 14:32 Height 6 ft 1 in Weight 274 lb BMI 36.1 Pulse 61 Pulse Source Pulse Oximeter Pulse Oximetry (%) 99 Oxygen Delivery Method Room Air Intake Visit Reasons: neurosyphilis follow up Allergies No Known Allergies Allergy (Verified 10/16/24 14:33) HPI Comments Details: He feels worse if anything after IV PCN for 14 days for neurosyphilis. Hearing is not changed. [facility] Medical History Lyme disease Obesity Depression Anxiety Insomnia Constipation Surgical History H/O umbilical hernia repair Social History Household Members: Family Housing: House Do you presently have visiting nurse or other home services: No Alcohol intake: current Alcohol intake frequency: holidays/special occasions only Patient Tobacco Use Status: Never used Tobacco e-Cigarette/Vaping Use: Never Used Second Hand Smoke Exposure: No service: No Review of Systems Const All systems reviewed & are unremarkable except as noted in HPI and below Physical Exam Vital Signs: Last Vital Signs Pulse 61 10/16/24 14:32 Pulse Ox 99 10/16/24 14:32 Oxygen Delivery Method Room Air 10/16/24 14:32 BMI result Body Mass Index 36.1 Const General: cooperative Assessment & Plan Assessment & Plan (1) Neurosyphilis: Comment: Neurosyphilis,no change Code(s): A52.3 - Neurosyphilis, unspecified Category: Medical Plan: IM PCN otherwise no further treatment. See PCP and look into other potential causes. Orders: Orders RPR Monitor reflex titer 3 Months A52.3 - Neurosyphilis, unspecified Medications: New penicillin G benzathine 2.4 mmu IM ONCE 1 day 1 ea 0RF penicillin G benzathine 2.4 mmu IM ONCE 1 ea 0RF 1 day Refilled penicillin G potassium (Pfizerpen-G) Ending October 08 4,000,000 units IV Q4H 78 ea 0RF 13 days Coding Level of Care Code Est Pt Level 3 (82008) Diagnoses Neurosyphilis A52.3
[2024-10-16 14:32] VITALS: PULSE 61; O2SAT 99; BMI 36.1
--- OUTSIDE RECORDS SUMMARY | 2024-10-16 14:58 | XMS_ITS | Data Portability ---
Author Organization [facility], Main Office Address [address] [facility] [facility], [address] [place] [address] Care Team Providers Care Area Relief Pilot Name Role Phone CORWIN VAUGHN - 2ND FLOOR OTHER WAQAR MARIE Primary Care Provider [phone] Assessment Encounter Date Assessment Date Assessment LastModified by Organization Details LastModified Time 10/11/2024 10/11/2024 spent > 30 minutes on discharge with assessment, discharge coordination, script and plan and doc [email or web address] Not available 10/11/2024 10:42:19 Plan of Treatment Reminders Order Date Submit Date Provider Last Modified By Organization Details Last Modified Time Details Appointments None record ed. Lab None record ed. Referral None record ed. Procedures None record ed. Surgeries None record ed. Imaging None record ed. Medication Orders None record ed. Patient TargetsNo targets recorded. Patient InstructionsNo instructions recorded. Reason for Referral None Reported. Problems Name Problem SNOMED Code Status Onset Date Resolution Date Notes Provider Name and Address Organization Details Recorded Time Neurosyphil is 16881766 Active 2024 CHRISTY DOMINGUEZ NP [address] [facility], [facility] [address], [place], [address], [facility] 5 12:12:13 Chronic constipatio n 852306946 Active 2024 CHRISTY DOMINGUEZ NP [address] [facility], [address], [place], [address], [facility] 5 12:12:15 Essential hypertensio n 93115999 Active 2024 CHRISTY DOMINGUEZ NP [address] [facility], [address], [place], [address], [facility] 5 12:12:17 Lyme disease 63189821 Active 2024 CHRISTY DOMINGUEZ NP [address] [facility], [address], [place], [address], [facility] 5 12:12:19 Bilateral shoulder osteoarthri tis 8075930320827 08 Active 2024 CHRISTY DOMINGUEZ NP [address] [facility], [address], [place], [address], [facility] 5 12:12:21 Depressive disorder 88730822 Active 2024 CHRISTY DOMINGUEZ NP [address] [facility], [address], [place], [address], [place] [facility] 5 12:12:22 Dental caries 65500977 Active 2024 CHRISTY DOMINGUEZ NP [address] [facility], [address], [place], [address], [facility] 5 12:12:25 Problem Notes None recorded. Medical Equipment None Reported. Allergies No known drug allergies Medications Not known to be on any medication Vitals Date Recorded Heart rate Respiratory rate Body temperature Oxygen saturation Oxygen saturation in Arterial blood by Pulse oximetry Systolic And Diastolic Provider Name and Address Organization Details Last Updated DateTime 5 78 /min 20 /min 97.8 [degF] 99 % 99 % 160/78 mm[Hg] CHRISTY DOMINGUEZ NP [address] [facility], [address], [place], [address], [facility] 5 10:56:21 Date Recorded Body weight Heart rate Respiratory rate Systolic And Diastolic Provider Name and Address Organization Details Last Updated DateTime 09/30/2024 654437.24 g 64 /min 18 /min 148/80 mm[Hg] Tony Gallardo MD [address] [facility], [address], [place], [address] , [facility] 09/30/2024 13:47:10 Date Recorded Heart rate Respiratory rate Body temperature Oxygen saturation Oxygen saturation in Arterial blood by Pulse oximetry Systolic And Diastolic Provider Name and Address Organization Details Last Updated DateTime 5 53 /min 18 /min 97.8 [degF] 97 % 97 % 140/82 mm[Hg] Janet Delgado NP [address] [facility], [address], [place], [address], [facility] 5 13:01:49 Date Recorded Body weight Heart rate Respiratory rate Body temperature Oxygen saturation Oxygen saturation in Arterial blood by Pulse oximetry Systolic And Diastolic Provider Name and Address Organization Details Last Updated DateTime 5 367206. 42 g 68 /min 18 /min 97.7 [degF] 99 % 99 % 134/75 mm[Hg] Janet Delgado NP [address] [facility], [address], [place], [address], [employer] [facility] 5 10:11:23 Social History Question Answer Notes LastModified by [employer] Details LastModified Time Tobacco Smoking Status Former Smoker remote, 3 years, age [age] yrs. old CHRISTY DOMINGUEZ, GENEVA [address] [facility], [address], [place], [address], [facility] 09/26/2024 12:13:41 What Is Your Code Status? DNR/DNI No Dialysis, G Tube, IVF [email or web address] Information not available 09/26/2024 Where Do You Live? [facility] Lives With Mother And Brother [email or web address] Information not available 09/26/2024 Do You Have A Medical Power Of Chief Lifestyle Officer? Yes Has HCP [email or web address] Information not available 09/26/2024 What Was The Date Of Your Most Recent Tobacco Screening? 09/26/2024 [email or web address] Information not available 09/26/2024 Do You Have An Out Of Hospital DNR? Yes Information not available 09/26/2024 Has Tobacco Cessation Counseling Been Provided? No [email or web address] Information not available 09/26/2024 Sex: Unknown Functional Status Question Answer Note LastModified by Organizat ion Details LastModified Time Do you use any illicit or recreational drugs? No [email or web address] Information not available 09/26/2024 Do you or have you ever used any other forms of tobacco or nicotine? No [email or web address] Information not available 09/26/2024 What is your level of alcohol consumption? None [email or web address] Information not available 09/26/2024 Mental Status None recorded. Family History Relationship Description Onset Age of this Age Resolved Age Notes LastModified by Organization Details LastModified Time Father Cerebrovascu lar accident Not available 12:12:41 Sister Malignant neoplasm of ovary [email or web address] Not available 2024 12:12:53 Medical History No medical history recorded. Past Encounters Encounter ID Performer Location Encounter Start Date Encounter Closed Date Diagnosis/Indication Diagnosis SNOMED-CT Code Diagnosis ICD10 Code Diagnosis Note [id number] CHRISTY DOMINGUEZ NP [address] [address] 09/26/2024 10:55:21 09/30/2024 13:49:29 Neurosyphilis 55264916 A52.10 New dx.Seen by ID, now on IV Pen G 4,000,000 units q 4 hr x 14 days totalCBC, BMP q thurs x 3Follow up with Dr. Kline in 2 wks, Dr. Valverde in 1 weekMonito r sx.PT OT eval and tx. Depressive disorder 3548 9007 F32.A Does not appear to be on meds at this time, monitor moodPsych eval prn Chronic constipation 236 933560 K59.09 Sx. for quite a while, poor response to laxatives per pt.Will try supp or fleets daily to see if this will help with eliminatio n.Unsure if reglan would be helpful or notMaintai n fluids, miralaxKUB prn, ER if acuteMonit or GI status Essential hypertension 44293376 I10 Started Norvasc 5 mg qd at [facility] - continueVS qdAdjust meds prn Bilateral shoulder osteoarthritis 1897671955 89171 M19.011 M19.012 X rays at [facility] neg.Contin ue APAP prnCan also consider diclofenac gel if needed. Lyme disease 85974765 A6 9.20 ??dx'd years ago but not treated.Ly me disease DNA results pending per [facility] [id number] Tony Gallardo MD [address] [address] 09/30/2024 13:46:54 10/01/2024 11:22:14 Neurosyphilis 20017443 A52.10 see HPInewly dx neurosyphi lisfollowe d by IDstarted onIV Pen G 4M units q 4 through 78monitor cbcupdate ID with concernspa tient with complaints of long standing constipati on, neuropathy weight loss, fatigueexp lained nature of infection and that treatment has now started Chronic constipation 236 791571 K59.09 long standing issue for patientnow no miralax 17 gm qdbowel protocol in placemonit or for effect Essential hypertension 58341324 I10 started on norvasc 5 mg qd in hospitalmo nitor bp and need to titrate Bilateral shoulder osteoarthritis 4871948840 77430 M19.011 M19.012 appears controlled with tylenolcon tinued Asthenia 24271140 R53.1 PT OT eval and treatmonit or fall risk and need for increased support in community Primary insomnia 6317117 F51.01 melatonin 6 mg qhsmonitor for effect and need to titrate Abnormal weight loss 267 626089 R63.4 see abovedieta ry to eval [id number] Janet Delgado NP [address] [address] 10/09/2024 12:54:48 10/11/2024 08:16:16 Neurosyphilis 06534470 A52.10 see HPI, likely symptoms may take longer to resolvenew ly dx neurosyphi lis 10/09 followed by ID, will get labs in am and send results to ID to determine if Picc can come out. pt remains with symptoms. nsg to sched outpt appt with IDlabs last week stable IV Pen G 4M units q 4 through 7/8contmon itor cbcupdate ID with concerns, may need to fu with ID outptpatie nt with complaints of long standing constipati on, neuropathy weight loss, fatigueexp lained nature of infection and that treatment has now started Asthenia 69293199 R53.1 PT OT eval and treatmonit or fall risk and need for increased support in community Chronic constipation 236 688981 K59.09 long standing issue for patient, denies constipati on today, eating wellmirala x 17 gm qdbowel protocol in placemonit or for effect Abnormal weight loss 267 659277 R63.4 has lost a sig amount of weightsee hpidietary to eval Essential hypertension 36421556 I10 bp 140/80 this am prior to medstarted on norvasc 5 mg qd in hospital, contmonito r bp and need to titrate Bilateral shoulder osteoarthritis 4380457187 59925 M19.011 M19.012 appears controlled with tylenolcon insurance biller sched if needed10/09 start diclofenac to shoulders in amcontinue d Lyme disease 14747501 A6 9.20 per historydx' d years ago but not treated. Lyme disease DNA results pending per [facility], not in yetfu with [place] [id number] Janet Delgado NP [address] [address] 10/11/2024 10:07:06 10/15/2024 08:21:52 Neurosyphilis 45280613 A52.10 per hospital summary symptoms may take longer to resolvenew ly dx neurosyphi lis followed by ID, will get labs reasurring on 10/10Picc can come out.pt remains with random aches and pains which may take some time to resolve.he is requesting to go home todayID appt on 10/14 to fu with symptoms for neurosyphi nixon and lyme hx with aches and pains.fu with pcp in one week completed IV Pen G 4M units q 4 through 10/08patient with complaints of long standing constipati on, neuropathy weight loss, fatigueexp lained nature of infection and that treatment completedw alking up and down halls without diff or assistive device herefu with pcp in one week also Bilateral shoulder osteoarthritis 3757796490 50621 M19.011 M19.012 appears controlled with tylenolcon insurance biller sched if neededdicl ofenac gel (OTC)to shoulders in am and prn started herefu with pcp outpt Essential hypertension 92020438 I10 bp 134/75 stablestar dot on norvasc 5 mg qd in hospital, script given on dcmonitor bp and need to titrate outpt with pcp Asthenia 49410299 R53.1 PT OT eval and treat prn outptmonit or fall risk and need for increased support in community with pcp outpt Chronic constipation 236 084689 K59.09 long standing issue for patient, denies constipati on today, eating wellmirala x 17 gm qdbowel protocol in placefu with pcp outpt Abnormal weight loss 267 616082 R63.4 has lost a sig amount of weight over last few years per reportsee hpifu with pcp outpt Lyme disease 23471860 A6 9.20 per historydx' d years ago but not treated per dc summary Lyme disease DNA results pending per [facility], not in yetfu with ID on saturday 10/14 and pcp outpt for further management Primary insomnia 9152644 F51.01 melatonin 6 mg qhsmonitor for effect and need to titrate outpt with pcp Health Concerns Section Related Observation LastModified by Organization Detai ls LastModified Time None Recorded Concern Status LastModified by Organization Details LastModified Time None Recorded Advance Directives Directive None Recorded Payers Insurance Date Sequence Insurance Name Policy Number Policy Mao Covered Member ID Mao Member ID Guarantor Name 10/09/2024 1 [place] [facility] Marcellus Dominguez [id number] Marcellus Dominguez Notes Date Note Type Note Provider Name and Address Organization Details Recorded Time 5 text/html Marcellus is seen today for initial intake. He is a 59 yo male, admitted to [facility] from [facility] on 09/25/24 for continued care and rehab after a hosp. for neurosyphilis. He presented to [facility] 09/23/24 from ID to start IV Pen G and PICC line placement as well as MRI of brain and ocular and auditory system, results neg. Shoulders x rayed due to pain, results neg. Norvasc started for BP control.Vague sx. have been going on intermittently x 1 - 1 1/2 years, including constipation, shoulder pain, tooth decay, weight loss, facial pain, abdominal sx., facial rash, headaches, and visual changes. He presented to the ER 09/03 with above sx., testing was done, noted positive for syphilis, no further details. Suspect he was discharged with orders to see ID outpt. VSS, BP elevated last night, reported as normal by nsg. this am.Labs today pending.No labs sent from [facility] stay. Upon exam, Marcellus is in bed, alert, NAD. He says he feels awful, no new sx., just the same thing since April. He particularly complains of constipation, eating well, but not passing much stool. Again, this is not new, but is the most concerning for him at this time. He has tried everything , and nothing helps much. He said they did an x ray at [facility] which showed stool but not as bad as they thought. VALDOVINOS: low fall risk PMH: depression, low testosterone, constipation, HTN, OA shoulders, ? Lyme dz., dental decayMOLST: CHRISTY DOMINGUEZ NP [address] [facility], [address], [place], [address], [facility] 09/26/2024 12:27:16 5 text/html Patient is a 59 yo male admit from hospital after being admitted by ID to start treatment for newly dx but probable secondary vs tertiary syphilis started on IV Pen G. brain MRI negative for acute issue. Of note patient while morbidly obese has had 113 lb weight loss during 2023 by report. Followed by ID. PMH significant fordepressionlow testosteronechronic constipationobesityOA admit to facility for continued care and therapy eval and treat Tony Gallardo MD [address] [facility], [address], [place], [address], [facility] 09/30/2024 14:26:52 5 text/html Marcellus is seen today for an acute visit. PMH: depression, low testosterone, constipation, HTN, OA shoulders, ? Lyme dz., dental decay Marcellus is a 59 yo male, admitted to [facility] from [facility] on 09/25/24 for continued care and rehab after a hosp. for neurosyphilis. He is seen for feeling foggy and not better yet with various moving pains in the shoulders, knees, etc.. . On exam, Marcellus is in the shower getting shaved. NAD. He is alert and states he is not better yet and foggy with continues with pain to the shoulders at times. He reports the tylenol helps some and is willing to trial the voltaren today. States he does not feel he can go home. Overall, flat affect. He is eating well and states moving bowels. He has a pIcc line to the right arm. He finished his abx yesterday. Will get labs in am as they were not done this am and send to ID for further evaluation if needed of abx for neurosyphilis. of note:He presented to [facility] 09/23/24 from ID to start IV Pen G and PICC line placement as well as MRI of brain and ocular and auditory system, results neg. Shoulders x rayed due to pain, results neg. Norvasc started for BP control. Vague sx. have been going on intermittently x 1 - 1 1/2 years, including constipation, shoulder pain, tooth decay, weight loss, facial pain, abdominal sx., facial rash, headaches, and visual changes. He presented to the ER 6/3 with above sx., testing was done, noted positive for syphilis, no further details. Suspect he was discharged with orders to see ID outpt. VALDOVINOS: low fall risk Janet Delgado, GENEVA [address] [facility], [address], [place], [address], [employer] 10/09/2024 13:30:31 5 text/html Marcellus is seen today for a discharge visit. PMH: depression, low testosterone, constipation, HTN, OA shoulders, ? Lyme dz., dental decay He presented to [facility] 09/23/24 from ID to start IV Pen G and PICC line placement as well as MRI of brain and ocular and auditory system, results neg. Shoulders x rayed due to pain, results neg. Norvasc started for BP control. Vague sx. have been going on intermittently x 1 - 1 1/2 years, including constipation, shoulder pain, tooth decay, weight loss, facial pain, abdominal sx., facial rash, headaches, and visual changes. He presented to the ER /3 with above sx., testing was done, noted positive for syphilis, no further details. Marcellus is a 59 yo male, admitted to [facility] from [facility] on 09/25/24 for continued care and rehab after a hosp. for neurosyphilis now completed therapy and abx and requesting to discharge home today. On exam, He reports various moving pains/aches in the shoulders, knees, etc.. and reports red areas come and go on his body, however none seen on admission here at [facility] from 09/25/24-10/11/24. He is alert and oriented x 4. He states he is doing okay and needs to get a car but his mother that he lives with will pick him up today and bring him toCT appt on Monday. Staff note he is up and walking without assistive device. He is not receiving therapy at this time. He has a pIcc line to the right arm. He finished his abx on 10/08. Will remove PICC line today and dc home.ID for further evaluation if needed of abx for neurosyphilis. He will need to follow oupt with pcp. BONIFACIO: low fall risk Janet Delgado NP [address] [facility], [address], [place], [address], [facility] 10/11/2024 10:42:24
== END 2024-10-16 14:54 | disposition home or self-care (01) ==
LOC: HO.HID 14:18
PROVIDERS: PCP Internal Medicine; Visit Provider Internal Medicine
DX: A52.3 Neurosyphilis, unspecified (principal)
CPT/HCPCS: 99213

== ENCOUNTER → 2024-10-16 14:18 | Outpatient (BNVA) | payer MEDICAID, SELFPAY | PROVIDERS: PCP Internal Medicine; Visit Provider Internal Medicine | DX: A52.3 Neurosyphilis, unspecified (principal); Z79.2 Long term (current) use of antibiotics | CPT/HCPCS: 96372; 99212; J0561 ==

== ENCOUNTER 2024-10-16 14:34 | Outpatient (AMB) | payer MEDICAID, SELFPAY ==
--- NOTE | 2024-10-16 14:57 | AM.OFFVISNUR ---
Intake Visit Reasons: Penicillin Injection Allergies No Known Allergies Allergy (Verified 10/16/24 14:33) Coding
== END 2024-10-16 14:54 | disposition home or self-care (01) ==
LOC: HO.HCC 14:34
PROVIDERS: PCP Internal Medicine
DX: A52.3 Neurosyphilis, unspecified (principal)

== ENCOUNTER 2024-11-27 12:34 | Outpatient (AMB) | payer MEDICAID, SELFPAY ==
--- NOTE | 2024-11-27 12:48 | A.OFFVIS_ITS ---
Intake Visit Reasons: neurosyphillis Allergies No Known Allergies Allergy (Verified 10/16/24 14:33) Medication List - Last Reconciled 11/27/24 by Bay Valverde MD acetaminophen 650 mg (2 x 325 mg) PO Q6H PRN amlodipine 5 mg See Protocol PO DAILY magnesium hydroxide (Milk of Magnesia) 30 mL PO DAILY PRN melatonin 6 mg (2 x 3 mg) PO BEDTIME PRN penicillin G benzathine 2.4 mmu IM ONCE 1 day penicillin G potassium (Pfizerpen-G) 4,000,000 units IV Q4H 13 days polyethylene glycol 3350 17 grams PO DAILY HPI Comments Details: The patient is a 59-year-old male presenting with complications associated with neurosyphilis, including severe constipation, insomnia, and tinnitus. Previously asymptomatic, his syphilis diagnosis occurred following insomnia starting in April of the previous year. This was followed by the abrupt onset of constipation the following August, necessitating intervention with laxatives. The patient ties these issues to nerve miscommunication and reports concurrent tinnitus, which began soon after the insomnia. Additionally, the patient experiences depression, secondary to the burden of his symptoms and subsequent fatigue. He has chronic gut spasms and nerve pain, which he describes as improved marginally with ALA supplementation. There is a noted history of appropriate antibiotic treatment for syphilis, with follow-up indicators such as constipation and tinnitus showing limited improvement. [facility] Medical History (Updated 11/27/24 @ 13:12 by Bay Valverde MD) Neurosyphilis Lyme disease Obesity Depression Anxiety Insomnia Constipation Surgical History H/O umbilical hernia repair Social History Household Members: Family Housing: House Do you presently have visiting nurse or other home services: No Alcohol intake: current Alcohol intake frequency: holidays/special occasions only Patient Tobacco Use Status: Never used Tobacco e-Cigarette/Vaping Use: Never Used Second Hand Smoke Exposure: No service: No Review of Systems Const Details: - Gastrointestinal: Reports severe constipation requiring intervention; reports chronic gut spasms. - Neurological: Reports insomnia, tinnitus in both ears, intermittent nerve pains, and tinnitus onset concurrent with insomnia. - Psychiatric: Reports symptoms of depression secondary to health issues. - Cardiovascular: Reports hypertension; controlled with medication. - Dermatological: Reports rashes and redness post-shower. - Dental: Reports poor dental health attributed to dry mouth and burning sensation in the tongue. Physical Exam Neuro Other: Mental Status: Alert and oriented to person, place, and time. Normal attention. Normal spontaneous speech, fluency, and comprehension. No obvious issues with mood and memory. Affect is depresse Cranial Nerves: CN II: Visual warren full to confrontation, visual acuity intact. CN III, IV, : Pupils equal, round, reactive to light and accommodation. Extraocular movements are normal. CN V: Facial sensation is normal. CN VII: Facial movements symmetrical. CN VIII: Hearing intact to bedside conversation is normal. CN IX, X: Palate elevates symmetrically. CN XI: Shoulder shrug and head turn symmetrical. CN XII: Tongue midline without atrophy or fasciculations. Motor: Bulk and tone normal in all extremities. No significant muscle weakness in arms and legs. No drift. Reflexes: Deep tendon reflexes 2+ and symmetric. Plantar response down-going bilaterally. Coordination: [id number]-oy-ahhd and iwfc-ry-[id number] testing normal. No dysmetria. Gait and Station: No obvious gait abnormality. No ataxia or instability. Extrapyramidal: Full facial expressions and blinking. No rigidity. Movements are appropriate with no tremor or abnormality. Speech: Normal; no dysarthria or tremor. Assessment & Plan Assessment & Plan (1) Neurosyphilis: Comment: Neurosyphilis,no change Code(s): A52.3 - Neurosyphilis, unspecified Category: Medical Plan: It is likely already appropriately treated. (2) Insomnia: Code(s): G47.00 - Insomnia, unspecified Category: Medical Qualifiers: Insomnia type: due to medical condition Qualified Code(s): G47.01 - Insomnia due to medical condition (3) Behavioral problems: Code(s): R46.89 - Other symptoms and signs involving appearance and behavior Category: Medical (4) Peripheral neuropathy: Code(s): G62.9 - Polyneuropathy, unspecified Category: Medical Qualifiers: Peripheral neuropathy type: polyneuropathy, unspecified Qualified Code(s): G62.9 - Polyneuropathy, unspecified Plan Impression and recommendations: 59 yo man who reported that in Pascual of 2024 he developed insomnia, and a few months later in August, he developed severe constipation. In September, his treponomal test was positive can CSF protein level was high. He was treated with antibiotics but continues to have numerous symptoms. His recent brain MRI did not reveal any significant pathology. At this time, I am not finding a physical reason for his symptoms. He is advised to see a behavioral therapist. RPR was ordered again to see his titer. Orders: Orders NE electromyogram (EMG) Today G62.9 - Polyneuropathy, unspecified NE nerve conduction velocity Today G62.9 - Polyneuropathy, unspecified Coding Level of Care Code New Pt Level 4 (70496) Diagnoses Neurosyphilis A52.3 Insomnia due to medical condition G47.01 Insomnia type: due to medical condition Behavioral problems R46.89 Peripheral polyneuropathy G62.9 Peripheral neuropathy type: polyneuropathy, unspecified
--- OUTSIDE RECORDS SUMMARY | 2024-11-27 13:01 | XMS_ITS | Encounter Summary ---
Author Organization [facility] Address [address] [place] [address] Phone Care Team Providers Care Breeder Hen Service Technician Name Role Phone Jae Trinidad DO Primary Care Provider [phone] Jae Trinidad DO Unavailable Keiry Ball MD Unavailable [phone] Edwardo Cabello MD Unavailable Roscoe Ambriz CNP Unavailable [phone] Vivi Jae Trent DO Unavailable Encounter Details Date Type Department Care Team (Late st Contact Info) Description 11/07/2018 Transcribe Orders [facility] [address] [place] [id number] Jae Trinidad DO [address] [facility] D [place], [place] [id number] Essential hypertension, malignant (Primary Dx); Type 2 diabetes mellitus with complication, unspecified whether usp insulin use; Lyme disease Social History Tobacco Use Types Packs/Day Years Used Date Smoking Tobacco: Former Cigarettes Smokeless Tobacco: Never Comments:age 18-19 Alcohol Use Standard Drinks/Week Comments Yes 0 (1 standard drink = 0.6 oz pur e alcohol) Sex and Gender Information Value Date Recorded Sex Assigned at Male 09/26/2023 4:26 PM EDT Legal Sex Male 9:42 PM EDT Gender Identity Male 09/26/2023 4:26 PM EDT Sexual Orientation Straight 09/26/2023 4: 26 PM EDT documented as of this encounter Plan of Treatment Not on file documented as of this encounter Results * Lyme screen with reflex to Western blot, blood (11/07/2018 9:10 AM EDT) Pathologist [facility] Lyme AB IgG Negative Negative [facility] Lyme AB IgM Negative Negative [facility] Blood 11/07/2018 9:10 AM EDT 11/07/2018 9:58 AM EDT us Jae A Bigda DO LAB BLOOD ORDERABLES Final Resul t Performing Organization Address [facility] Co de Phone Number [address] [address] * TSH (11/07/2018 9:10 AM EDT) [facility] TSH 2.55 0.27 - 4.20 uIU/mL [facility] Blood 11/07/2018 9:10 AM EDT 11/07/2018 9:58 AM EDT us Jae A Bigda DO LAB BLOOD ORDERABLES Final Resul t Performing Organization Address [facility] Co de Phone Number [address] [address] * Comprehensive metabolic panel (11/07/2018 9:10 AM EDT) [facility] SODIUM 140 133 - 146 mmol/L [facility] POTASSIUM 4.8 3.3 - 5.1 mmol/L [facility] CHLORIDE 103 96 - 108 mmol/L [facility] CO2 28 21 - 35 mmol/L [facility] BUN 13 6 - 19 mg/dL [facility] CREATININE 0.80 0.5 - 1.5 mg/dL [facility] GLUCOSE 98 70 - 99 mg/dL [facility] ALBUMIN 4.0 3.9 - 4.8 g/dL [facility] TOTAL PROTEIN 7.6 6.5 - 8.0 g/dL [facility] CALCIUM 9.2 8.4 - 10.3 mg/dL [facility] ALKALINE PHOSPHATASE 78 39 - 117 U/L [facility] TOTAL BILIRUBIN 0.4 0.0 - 1.2 mg/dL [facility] AST 27 0 - 37 U/L [facility] ALT 31 0 - 40 U/L [facility] GLOBULIN 3.6 1 - 4.8 g/dL [facility] EGFR 101 >59 mL/min/1.7 3m2 [facility] Comment:If patient is black, multiply result by 1.159. Estimated glomerular filtration rate calculated using the CKD-EPI equation. ANION GAP 14 10 - 20 mmol/L [facility] Blood 11/07/2018 9:10 AM EDT 11/07/2018 9:58 AM EDT us Jae A Bigda DO LAB BLOOD ORDERABLES Final Resul t Performing Organization Address City/[facility] Co de Phone Number [address] [address] * Hemoglobin A1c (11/07/2018 9:10 AM EDT) HEMOGLOBIN A1C 5.3 4.3 - 5.8 % [facility] Blood 11/07/2018 9:10 AM EDT 11/07/2018 9:58 AM EDT us Jae A Bigda DO LAB BLOOD ORDERABLES Final Resul t Performing Organization Address [facility] Co de Phone Number [address] [address] * Reverse T3 (11/07/2018 9:10 AM EDT) T3 REVERSE 18 10 - 24 ng/dL [facility] Comment: (NOTE) ADDITIONAL INFORMATION This test was developed and its performance characteristics determined by [facility] in a manner consistent with CLIA requirements. This test has not been cleared or approved by the U.S. Food and Drug Administration. Blood 11/07/2018 9:10 AM EDT 11/07/2018 9:58 AM EDT us Jae Trinidad DO LAB BLOOD ORDERABLES Final Resul t [facility] [address] [place] [address] * Lipid panel (11/07/2018 9:10 AM EDT) HDL 51 mg/dL [facility] Comment: Interpretation <40 mg/dL: Low HDL cholesterol (major risk factor for CHD) Greater than or equal to 60 mg/dL: High HDL cholesterol ( negative risk factor for CHD) HDL - cholesterol is affected by a number of factors, e.g. smoking, excerise, hormones, sex and age. CHOLESTEROL 199 0 - 240 mg/dL [facility] TRIGLYCERIDES 113 30 - 160 mg/dL [facility] LDL 125 50 - 129 mg/dL [facility] Comment: LDL levels in terms of risk for coronary heart disease: <100 mg/dL: Optimal 100-129 mg/dL: Near or above optimal 130-159 mg/dL: Borderline high 160-189 mg/dL: High >190 mg/dL: Very High CARDIAC RISK RATIO 3.9 3.4 - 5.0 C [facility] Blood 11/07/2018 9:10 AM EDT 11/07/2018 9:58 AM EDT us Jae Trinidad DO LAB BLOOD ORDERABLES Final Resul t Performing Organization Address City/[facility] Co de Phone Number [address] [address] documented in this encounter Visit Diagnoses Diagnosis Essential hypertension, malignant- Primary Type 2 diabetes mellitus with complication, unspecified whether usp insulin use Lyme disease documented in this encounter Care Teams Breeder Hen Service Technician Relationship Specialty Start Date End Date Jae Trinidad DO PCP - General 01/17/17 aJe Trinidad DO Historical LMR Provider 01/19/17 Keiry Ball MD [address] [address] Historical LMR Provider 01/19/17 Edwardo Cabello MD [address] [place] [address] Historical LMR Provider 01/19/17 04/10/21 Roscoe Ambriz CNP [address] [address] Historical LMR Provider 01/19/17 Jae Trinidad DO [address] [place] [address] [place] [address] Insurance Assigned Provider 06/02/1808/20 documented as of this encounter Additional Source Comments The information contained in this document represents components of the legal health record. It is not the complete legal health record.[facility]
--- OUTSIDE RECORDS SUMMARY | 2024-11-27 13:01 | XMS_ITS | Encounter Summary ---
Author Organization [facility] Address [address] [place] [address] Phone Care Team Providers Care On Site Wastewater Systems Technician Name Role Phone MonicaJae fraser Primary Care Provider [phone] ViviJae DO Unavailable Roscoe Ambriz VICE PRESIDENT PROCESS Unavailable [phone] Encounter Details Date Type Department Care Team (Late st Contact Info) Description 02/01/2024 Procedure Pass [facility] Admitting Dept Virtual Department [address] [place] [address] Social History Tobacco Use Types Packs/Day Years Used Date Smoking Tobacco: Former Cigarettes Smokeless Tobacco: Never Comments:age 17-19 Alcohol Use Standard Drinks/Week Comments Yes 0 (1 standard drink = 0.6 oz pur e alcohol) few drinks a year Education Answer Date Recorded Are you interested in more education? Not on thuy e 07/29/2022 Are you concerned about learning? Not on file 07/29/2022 No 07/29/2022 No 07/29/2022 Digital Access Answer Date Recorded No 08/29/2022 No 08/29/2022 Reliable internet access at home? Not on file 08/29/2022 Device with a working camera? Not on file Intimate Partner Violence Answer Date R ecorded Are you denied basic needs s uch as food, clothing, or medical care? No 01/29/2024 In the past 12 months have y ou been in a relationship with a person who hurts, threatens, or tries to control you? No 01/29/2024 Are you denied basic needs s uch as food, clothing, or medical care? No 01/29/2024 In the past 12 months have y ou been in a relationship with a person who hurts, threatens, or tries to control you? No 01/29/2024 Sex and Gender Information Value Date Recorded Sex Assigned at Male 09/26/2023 4:26 PM EDT Legal Sex Male 9:42 PM EDT Gender Identity Male 09/26/2023 4:26 PM EDT Sexual Orientation Straight 09/26/2023 4: 26 PM EDT documented as of this encounter Plan of Treatment Not on file documented as of this encounter Visit Diagnoses Not on filedocumented in this encounter Care Teams On Site Wastewater Systems Technician Relationship Specialty Start Date End Date Jae Trinidad DO PCP - General 01/17/17 Jae Trinidad DO Historical LMR Provider 01/19/17 Roscoe Ambriz VICE PRESIDENT PROCESS 15 [facility], [address] [place] [address] Historical LMR Provider 01/19/17 documented as of this encounter Additional Source Comments The information contained in this document represents components of the legal health record. It is not the complete legal health record.[facility]
--- OUTSIDE RECORDS SUMMARY | 2024-11-27 13:01 | XMS_ITS | Encounter Summary ---
Author Organization [facility] Address [address] [place] [address] Phone Care Team Providers Care Stack Supervisor Name Role Phone Jae Trinidad DO Primary Care Provider [phone] Jae Trinidad DO Unavailable Keiry Ball MD Unavailable [phone] Edwardo Cabello MD Unavailable Roscoe Ambriz CNP Unavailable [phone] Jae Trinidad DO Unavailable Reason for Referral * Physical Therapy (Routine) - Closed Specialty Diagnoses / Procedures Referred By Devin hendricks Referred To Contact Physical Therapy Diagnoses Encounter for rehabilitation Jae Trinidad DO Phone: tel: fax: mailto:[email or web address] [address] [place] [address] Phone: tel: Referral ID Status Reason Start Date Expiration Date Visits Re quested Visits Authorized [id number] Closed 09/16/2020 09/16/2021 1 1 Encounter Details Date Type Department Care Team ([facility] st Contact Info) Description 09/16/2020 Transcribe Orders [facility] [address] [place], [place] [id number] Jae Trinidad DO [address] [place] [address] [email or web address] Encounter for rehabilitation (Primary Dx) Social History Tobacco Use Types Packs/Day Years [...] as of this encounter Plan of Treatment Scheduled Referrals Name Type Priority Associated Diagnoses Orde r Schedule Ambulatory referral to [facility] Physical Therapy Outpatient Referral Routine Encounter for rehabilitation Ordered: 09/16/2020 documented as of this encounter Visit Diagnoses Diagnosis Encounter for rehabilitation- Primary documented in this encounter Care Teams Stack Supervisor Relationship Specialty Start Date End Date Jae Trinidad DO PCP - General 01/17/17 Jae Trinidad DO Historical LMR Provider 01/19/17 Keiry Ball MD [address] [place] [address] [email or web address] Historical LMR Provider 01/19/17 Edwardo Cabello MD [address] [place] [address] [email or web address] Historical LMR Provider 01/19/17 04/10/21 Roscoe Ambriz CNP [address] [place] [address] [email or web address] Historical LMR Provider 01/19/17 Jae Trinidad DO [address] [place] [address] [email or web address] Insurance Assigned Provider 06/02/1808/20 documented as of this encounter Additional Source Comments The information contained in this document represents components of the legal health record. It is not the complete legal health record.[facility]
--- OUTSIDE RECORDS SUMMARY | 2024-11-27 13:01 | XMS_ITS | Clinical Summary ---
Author Organization [facility] Address [address] [place] [address] Phone Care Team Providers Care Baffle Installer Name Role Phone Jae Trinidad Primary Care Provider [phone] ViviJae DO Unavailable Roscoe Ambriz BOROUGH COORDINATOR Unavailable [phone] Allergies Active Allergy Reactions Criticality Noted Date Comments Tramadol 05/01/2018 Not effective Medications losartan (COZAAR) 50 MG tablet Take 50 mg by mouth every morning. 07/21/2023 Active spironolactone (ALDACTONE) 25 MG tablet Take 1 tablet by mouth every other day. 04/24/2023 Active HAMIDA/theanine/as hwagandha xt (HAMIDA SOOTHE ORAL) Take 750 mg by mouth. Active ascorbic acid (VITAMIN C ORAL) Take 10,000 mg by mouth. Active ZINC ORAL Take 25 mg by mouth. Active cholecalciferol, vitamin D3, (VITAMIN D3 ORAL) Take by mouth. Active VITAMIN A ORAL Take by mouth once a week. Active vitamin E 400 UNIT capsule Take 400 Units by mouth once a week. Active prasterone, DHEA, (DHEA ORAL) Take 100 mg by mouth 2 (two) times a day. Active melatonin 3 mg Tab Take 3 mg by mouth. Active MAGNESIUM ORAL Take 100 mg by mouth 4 (four) times a week. Active Active Problems Problem Noted Date Diagnosed Date Low testosterone in male 07/26/2023 Assessment & Plan (07/26/2023 2:56 PM EDT): This patient was said to have low testosterone levels. Unfortunately I did not receive any lab reports. I will request lab work for evaluation of hypogonadism this includes gonadotropins, testosterone levels and prolactin levels. I have also requested CBC lipid panel and PSA in case he requires therapy. He needs to do the lab work fasting in the morning soon after waking up. Screening for prostate cancer 07/26/2023 Chronic fatigue 07/26/2023 Assessment & Plan (07/26/2023 2:56 PM EDT): Patient complains of fatigue and drowsiness multiple symptoms. Will check fasting cortisol CBC and comprehensive levels for further evaluation. Lyme disease 05/01/2018 Diabetes mellitus 05/01/2018 Hyperlipidemia 05/01/2018 Schizoaffective schizophrenia 05/01/2018 Hypertension 05/01/2018 Family History Medical History Relation Comments Stroke Father Thyroid disease Mother Relation Status Comments Father Mother Alive Social History Tobacco Use Types Packs/Day Years Used Date Smoking Tobacco: Former Cigarettes Smokeless Tobacco: Never Tobacco Cessation:Counseling Given: Not Answered Comments:age 18-19 Alcohol Use Standard Drinks/Week Comments [...] ecorded Are you denied basic needs s [facility] as food, clothing, or medical care? No 01/29/2024 In the past 12 months have y ou been in a relationship with a person who hurts, threatens, or tries to control you? No 01/29/2024 Are you denied basic needs s [facility] as food, clothing, or medical care? No [...] Orientation Straight 09/26/2023 4: 26 PM EDT Last Filed Vital Signs Vital Sign Reading Time Taken Comments Blood Pressure 142/84 09/26/2023 7:50 PM EDT Pulse 58 09/26/2023 7:50 PM EDT PA Will aware of low heartrate- states patient is still clear for discharge Temperature 36 C (96.8 F) 09/26/2023 7:50 PM EDT Respiratory Rate 18 09/26/2023 7:50 PM EDT Oxygen Saturation 97% 09/26/2023 7:5 0 PM EDT Inhaled Oxygen Concentration - - Weight 110.7 kg (244 lb) 01/29/2024 3:1 7 PM EDT Height 185.4 cm (6' 1 ) 09/26/2023 4:21 PM EDT Body Mass Index 32.19 09/26/2023 4:21 PM EDT Plan of Treatment Health Maintenance Due Date Last Done Comments Adult Td,Tdap Booster 1964 DEPRESSION SCREENING 1976 SMOKING Hx and SMOKELESS TOBACCO SCREENING 01/07/1977 HEPATITIS C SCREENING 01/07/1982 HIV ONE-TIME SCREENING (18-65 YEARS) 01/07/1982 PNEUMOCOCCAL VACCINES (50+ years) (1 of 2 - PCV) 01/07/1983 COLOGUARD 01/07/2009 COLONOSCOPY 01/07/2009 COLORECTAL CANCER SCREENING 01/07/2009 FIT TEST 01/07/2009 FOBT 01/07/2009 SIGMOIDOSCOPY 01/07/2009 VIRTUAL COLONOSCOPY 01/07/2009 ZOSTER VACCINES (1 of 2) 01/07/2014 DIABETIC EYE EXAM 05/01/2018 HEMOGLOBIN A1C 10/03/2022 04/05/2022, 11/07/2018 LIPID PANEL 04/05/2023 04/05/2022, 11/07/2018 COVID-19 VACCINE ( season) 2023 BLOOD PRESSURE 01/25/2024 07/26/2023 CREATININE LEVEL 11/12/2024 11/13/2023, , 07/28/2023, Additional history exists POTASSIUM LEVEL 11/12/2024 11/13/2023, 09/02, 07/28/2023, Additional history exists RSV VACCINE (1 - 1-dose 75+ series) 01/07/2039 HEPATITIS A VACCINES Aged Out No long er eligible based on patient's age to complete this topic HIB VACCINES Aged Out No longer eligi ble based on patient's age to complete this topic MENINGOCOCCAL VACCINES (ACWY) Aged Out No longer eligible based on patient's age to complete this topic MENINGOCOCCAL VACCINES (B) Aged Out N o longer eligible based on patient's age to complete this topic Medical Devices Not on file Procedures Procedure Name Priority Date/Time Associated Diagnosis Comments COMPREHENSIVE METABOLIC PANEL Routine 11/13/2023 3:22 PM EDT Constipation, unspecified constipation type Frequent bowel movements HEMOGLOBIN A1C Routine 11/07/2018 9:10 AM EDT Essential hypertension, malignant Type 2 diabetes mellitus with complication, unspecified whether long lines operator insulin use Lyme disease LIPID PANEL Routine 11/07/2018 9:10 AM EDT Essential hypertension, malignant Type 2 diabetes mellitus with complication, unspecified whether long lines operator insulin use Lyme disease from Last 3 Months or Most Recently Relevant to Health Maintenance Results * (ABNORMAL) Comprehensive metabolic panel (11/13/2023 3:22 PM EDT) SODIUM 139 133 - 146 mmol/L [facility] POTASSIUM 4.7 3.3 - 5.1 mmol/L [facility] CHLORIDE 102 96 - 108 mmol/L [facility] CO2 24 21 - 35 mmol/L [facility] BUN 9 6 - 19 mg/dL [facility] CREATININE 1.00 0.5 - 1.5 mg/dL [facility] GLUCOSE 101(H) 70 - 99 mg/dL [facility] ALBUMIN 4.3 3.9 - 4.8 g/dL [facility] TOTAL PROTEIN 7.5 6.5 - 8.0 g/dL [facility] CALCIUM 9.4 8.4 - 10.3 mg/dL [facility] ALKALINE PHOSPHATASE 62 39 - 117 U/L [facility] TOTAL BILIRUBIN 0.6 0.0 - 1.2 mg/dL [facility] AST 20 0 - 37 U/L [facility] ALT 17 0 - 40 U/L [facility] GLOBULIN 3.2 1 - 4.8 g/dL [facility] EGFR 87 >59 mL/min/1.7 3m2 [facility] Comment:Estimated glomerular filtration rate calculated using the CKD-EPI refit equation. ANION GAP 18 10 - 20 mmol/L [facility] Blood 11/13/2023 3:22 PM EDT 11/13/2023 3:25 PM EDT us Chrissie Fitzgerald CHIEF OF SERVICE LAB BLOOD ORDERABLES Ramona l Result Performing Organization Address City/[facility]/ZIP Co de Phone Number [address] [address] * Hemoglobin A1c (11/07/2018 9:10 AM EDT) HEMOGLOBIN A1C 5.3 4.3 - 5.8 % [facility] Blood 11/07/2018 9:10 AM EDT 11/07/2018 9:58 AM EDT us Jae Trinidad DO LAB BLOOD ORDERABLES Final Resul t Performing Organization Address [facility] Co de Phone Number [address] [address] * Lipid panel (11/07/2018 9:10 AM EDT) HDL 51 mg/dL [facility] Comment: Interpretation <40 mg/dL: Low HDL cholesterol (major risk factor for CHD) Greater than or equal to 60 mg/dL: High HDL cholesterol ( negative risk factor for CHD) HDL - cholesterol is affected by a number of factors, e.g. smoking, excerise, hormones, sex and age. CHOLESTEROL 199 0 - 240 mg/dL [facility] TRIGLYCERIDES 113 30 - 160 mg/dL [facility] LDL 125 50 - 129 mg/dL [facility] Comment: LDL levels in terms of risk for coronary heart disease: <100 mg/dL: Optimal 100-129 mg/dL: Near or above optimal 130-159 mg/dL: Borderline high 160-189 mg/dL: High >190 mg/dL: Very High CARDIAC RISK RATIO 3.9 3.4 - 5.0 [facility] Blood 11/07/2018 9:10 AM EDT 11/07/2018 9:58 AM EDT us Jae Twan Trinidad DO LAB BLOOD ORDERABLES Final Resul t [address] [address] from Last 3 Months or Most Recently Relevant to Health Maintenance Insurance [facility] [place] [address] [place] [address] [place] [address] [place] [address] Care Teams Baffle Installer Relationship Specialty Start Date End Date Jae Trinidad DO PCP - General 01/17/17 Jae Trinidad DO Historical LMR Provider 01/19/17 Roscoe Ambriz, MATHEW 15 [facility], [address] [place] [address] Historical LMR Provider 01/19/17 Additional Source Comments The information contained in this document represents components of the legal health record. It is not the complete legal health record.[facility]
== END 2024-11-27 13:20 | disposition home or self-care (01) ==
LOC: HO.HSM 12:34
PROVIDERS: PCP Internal Medicine; Visit Provider Psychiatry & Neurology Neurology
DX: A52.3 Neurosyphilis, unspecified (principal); G47.01 Insomnia due to medical condition; R46.89 Other symptoms and signs involving appearance and behavior; G62.9 Polyneuropathy, unspecified
CPT/HCPCS: 99204

== ENCOUNTER → 2024-11-27 12:34 | Outpatient (BNVA) | payer MEDICAID, SELFPAY | PROVIDERS: PCP Internal Medicine; Visit Provider Psychiatry & Neurology Neurology | DX: K59.04 Chronic idiopathic constipation (principal); A52.3 Neurosyphilis, unspecified; G47.01 Insomnia due to medical condition; G62.9 Polyneuropathy, unspecified; H93.19 Tinnitus, unspecified ear; F32.A Depression, unspecified; R53.83 Other fatigue | CPT/HCPCS: 99202 ==

== ENCOUNTER → 2024-12-11 12:55 | Outpatient (BNV) | payer MEDICAID, SELFPAY | PROVIDERS: PCP Internal Medicine; Visit Provider Psychiatry & Neurology Neurology | DX: G62.89 Other specified polyneuropathies (principal) | CPT/HCPCS: 95886; 95913 ==

== ENCOUNTER 2024-12-11 12:57 | Outpatient (REF) | payer MEDICAID, SELFPAY ==
--- NOTE | 2024-12-11 12:55 | EMG_ITS ---
Chief complaint: Tingling and body pain Reason for referral: Polyneuropathy Referred by:?Dr Valverde Procedure done: Right upper and right lower extremities NCS/EMG Right median and ulnar motor and sensory studies were performed right tibial and peroneal motor studies were performed right median and ulnar sensory, right radial sensory, and right superficial peroneal and sural sensory studies were performed tibial H-reflex was obtained and EMG needle examination was performed. Superficial peroneal and sural sensory studies did not reveal any response. Right median mixed sensory distal latency was borderline prolonged. Right tibial and peroneal motor unit amplitude was severely diminished with borderline slowing of conduction velocity. No acute EMG findings were noted. Impression: Moderately severe, sensory and motor, axonal peripheral neuropathy MTDD
--- OUTSIDE RECORDS SUMMARY | 2024-12-11 15:57 | XMS_ITS | Encounter Summary ---
Author Organization [facility] Address [address] [place] [address] Phone Care Team Providers Care Cement Patcher Name Role Phone Jae Trinidad DO Primary Care Provider [phone] Jae Trinidad DO Unavailable Keiry Ball MD Unavailable [phone] Edwardo Cabello MD Unavailable Roscoe Ambriz CNP Unavailable [phone] Jae Trinidad DO Unavailable Reason for Referral * Physical Therapy (Routine) - Closed Specialty Diagnoses / Procedures Referred By Devin hendricks Referred To Contact Physical Therapy Diagnoses Encounter for rehabilitation Jae Trinidad DO Phone: tel: fax: [email or web address] [address] [place] [address] Phone: tel: Referral ID Status Reason Start Date Expiration Date Visits Re quested Visits Authorized [id number] Closed 09/16/2020 09/16/2021 1 1 Encounter Details Date Type Department Care Team ([facility] st Contact Info) Description 09/16/2020 Transcribe Orders [facility] [address] [place], [place] [id number] Jae Trinidad DO [address] [place] [address] [email or web address] Encounter for rehabilitation (Primary Dx) Social History [...] Diagnoses Orde r Schedule Ambulatory referral to [facility] Physical Therapy Outpatient Referral Routine Encounter for rehabilitation Ordered: 09/16/2020 documented as of this encounter Visit Diagnoses Diagnosis Encounter for rehabilitation- Primary documented in this encounter Care Teams Cement Patcher Relationship Specialty Start Date End Date Jae Trinidad DO PCP - General 01/17/17 Jae Trinidad DO Historical LMR Provider 01/19/17 Keiry Ball MD [address] [place] [address] [email or web address] Historical LMR Provider 01/19/17 Edwardo Cabello MD [address] [place] [id number] [email or web address] Historical LMR Provider 01/19/17 04/10/21 Roscoe Ambriz CNP [address] [place] [address] [email or web address] Historical LMR Provider 01/19/17 Jae Trinidad DO [address] [place] [address] [email or web address] Insurance Assigned Provider 06/02/1808/20 documented as of this encounter Additional Source Comments The information contained in this document represents components of the legal health record. It is not the complete legal health record.[facility]
--- OUTSIDE RECORDS SUMMARY | 2024-12-11 15:57 | XMS_ITS | Encounter Summary ---
Author Organization [facility] Address [address] [place] [address] Phone Care Team Providers Care Break Out Worker Name Role Phone Jae Trinidad DO Primary Care Provider [phone] Jae Trinidad DO Unavailable Keiry Ball MD Unavailable [phone] Edwardo Cabello MD Unavailable Roscoe Ambriz CNP Unavailable [phone] Vivi Jae Trent DO Unavailable Encounter Details Date Type Department Care Team (Late st Contact Info) Description 11/07/2018 Transcribe Orders [facility] [address] [place] [id number] Jae Trinidad DO [address] [facility] [address] [place], [place] [phone] Essential hypertension, malignant (Primary Dx); Type 2 diabetes mellitus with complication, unspecified whether snf insulin use; Lyme disease Social History Tobacco [...] blot, blood (11/07/2018 9:10 AM EDT) Pathologist [facility] Lyme AB IgG Negative Negative [facility] Lyme AB IgM Negative Negative [facility] Blood 11/07/2018 9:10 AM EDT 11/07/2018 9:58 AM EDT us Jae A Bigda DO LAB BLOOD ORDERABLES Final Resul t Performing Organization Address [facility] Co de Phone Number [address] [address] * TSH (11/07/2018 9:10 AM EDT) [facility] TSH 2.55 0.27 - 4.20 uIU/mL [facility] Blood 11/07/2018 9:10 AM EDT 11/07/2018 9:58 AM EDT us Jae A Bigda DO LAB BLOOD ORDERABLES Final Resul t Performing Organization Address [facility] Co de Phone Number [address] [address] * Comprehensive metabolic panel (11/07/2018 9:10 AM EDT) [facility] SODIUM 140 133 - 146 mmol/L [facility] POTASSIUM 4.8 3.3 - 5.1 mmol/L [facility] CHLORIDE 103 96 - 108 mmol/L [facility] CO2 28 21 - 35 mmol/L [facility] BUN 13 6 - 19 mg/dL [facility] CREATININE 0.80 0.5 - 1.5 mg/dL [facility] GLUCOSE 98 70 - 99 mg/dL [facility] ALBUMIN 4.0 3.9 - 4.8 g/dL [facility] TOTAL PROTEIN 7.6 6.5 - 8.0 g/dL [facility] CALCIUM 9.2 8.4 - 10.3 mg/dL [facility] ALKALINE PHOSPHATASE 78 39 - 117 U/L [facility] TOTAL BILIRUBIN 0.4 0.0 - 1.2 mg/dL [facility] AST 27 0 - 37 U/L [facility] ALT 31 0 - 40 U/L [facility] GLOBULIN 3.6 1 - 4.8 g/dL [facility] EGFR 101 >59 mL/min/1.7 3m2 [facility] Comment:If patient is black, multiply result by 1.159. Estimated glomerular filtration rate calculated using the CKD-EPI equation. ANION GAP 14 10 - 20 mmol/L [facility] Blood 11/07/2018 9:1 0 AM EDT 11/07/2018 9:58 AM EDT us Jae A Bigda DO LAB BLOOD ORDERABLES Final Resul t Performing Organization Address [facility] Co de Phone Number [address] [address] * Hemoglobin A1c (11/07/2018 9:10 AM EDT) HEMOGLOBIN A1C 5.3 4.3 - 5.8 % [facility] Blood 11/07/2018 9:10 AM EDT 11/07/2018 9:58 AM EDT us Jae A Bigda DO LAB BLOOD ORDERABLES Final Resul t Performing Organization Address [facility] Co de Phone Number [address] [address] * Reverse T3 (11/07/2018 9:10 AM EDT) T3 REVERSE 18 10 - 24 ng/dL [facility] Comment: (NOTE) ADDITIONAL INFORMATION This test was developed and its performance characteristics determined by [facility] in a manner consistent with CLIA requirements. This test has not been cleared or approved by the U.S. Food and Drug Administration. Blood 11/07/2018 9:10 AM EDT 11/07/2018 9:58 AM EDT us Jae Trinidad DO LAB BLOOD ORDERABLES Final Resul t Performing Organization Address [facility] Co de Phone Number [facility] [address] [place] [address] * Lipid panel (11/07/2018 9:10 AM EDT) HDL 51 mg/dL [facility] Comment: Interpretation <40 mg/dL: Low HDL cholesterol (major risk factor for CHD) Greater than or equal to 60 mg/dL: High HDL cholesterol ( negative risk factor for CHD) HDL - cholesterol is affected by a number of factors, e.g. smoking, excerise, hormones, sex and age. CHOLESTEROL 199 0 - 240 mg/dL [facility] TRIGLYCERIDES 113 30 - 160 mg/dL [facility] LDL 125 50 - 129 mg/dL [facility] Comment: LDL levels in terms of risk for coronary heart disease: <100 mg/dL: Optimal 100-129 mg/dL: Near or above optimal 130-159 mg/dL: Borderline high 160-189 mg/dL: High >190 mg/dL: Very High CARDIAC RISK RATIO 3.9 3.4 - 5.0 C [facility] Blood 11/07/2018 9:10 AM EDT 11/07/2018 9:58 AM EDT us Jae Trinidad DO LAB BLOOD ORDERABLES Final Resul t Performing Organization Address [facility] Co de Phone Number [address] [address] documented in this encounter Visit Diagnoses Diagnosis Essential hypertension, malignant- Primary Type 2 diabetes mellitus with complication, unspecified whether extermination supervisor insulin use Lyme disease documented in this encounter Care Teams Break Out Worker Relationship Specialty Start Date End Date Jae Trinidad DO PCP - General 01/17/17 Jae Trinidad DO Historical LMR Provider 01/19/17 Keiry Ball MD [address] [address] Historical LMR Provider 01/19/17 Edwardo Cabello MD [address] [place] [address] Historical LMR Provider 01/19/17 04/10/21 Roscoe Ambriz CNP [address] [address] Historical LMR Provider 01/19/17 Jae Trinidad DO [address] [place] [address] [place] [address] Insurance Assigned Provider 06/02/1808/20 documented as of this encounter Additional Source Comments The information contained in this document represents components of the legal health record. It is not the complete legal health record.[facility]
--- OUTSIDE RECORDS SUMMARY | 2024-12-11 15:57 | XMS_ITS | Clinical Summary ---
Author Organization [facility] Address [address] [place] [address] Phone Care Team Providers Care Steel Checker Name Role Phone Jae Trinidad Primary Care Provider [phone] ViviJae DO Unavailable Roscoe Ambriz BODY WIRER Unavailable [phone] Allergies Active Allergy Reactions Criticality Noted Date [...] ecorded Are you denied basic needs s [facility] as food, clothing, or medical care? No 01/29/2024 In the past 12 months have y ou been in a relationship with a person who hurts, threatens, or tries to control you? No 01/29/2024 Are you denied basic needs s [facility] as food, clothing, or medical care? [...] 04/05/2022, 11/07/2018 LIPID PANEL 04/05/2023 04/05/2022, 11/07/2018 BLOOD PRESSURE 01/25/2024 07/26/2023 INFLUENZA VACCINE (#1) 2024 CREATININE LEVEL 11/12/2024 11/13/2023, , 07/28/2023, Additional history exists POTASSIUM LEVEL 11/12/2024 11/13/2023, 09/02, 07/28/2023, Additional history exists COVID-19 VACCINE ( - 2023-25 season) 2024 RSV VACCINE (1 - 1-dose 75+ series) [...] 2 diabetes mellitus with complication, unspecified whether terminal makeup operator insulin use Lyme disease LIPID PANEL Routine 11/07/2018 9:10 AM EDT Essential hypertension, malignant Type 2 diabetes mellitus with complication, unspecified whether group home insulin use Lyme disease from Last 3 Months or Most Recently Relevant to Health Maintenance Results * (ABNORMAL) Comprehensive metabolic panel (11/13/2023 3:22 PM EDT) SODIUM 139 133 - 146 mmol/L [facility] POTASSIUM 4.7 3.3 - 5.1 mmol/L [facility] CHLORIDE 102 96 - 108 mmol/L [facility] CO2 24 21 - 35 mmol/L [facility] BUN 9 6 - 19 mg/dL [facility] CREATININE 1.00 0.5 - 1.5 mg/dL [facility] GLUCOSE 101(H) 70 - 99 mg/dL [facility] ALBUMIN 4.3 3.9 - 4.8 g/dL [facility] TOTAL PROTEIN 7.5 6.5 - 8.0 g/dL [facility] CALCIUM 9.4 8.4 - 10.3 mg/dL [facility] ALKALINE PHOSPHATASE 62 39 - 117 U/L [facility] TOTAL BILIRUBIN 0.6 0.0 - 1.2 mg/dL [facility] AST 20 0 - 37 U/L [facility] ALT 17 0 - 40 U/L [facility] GLOBULIN 3.2 1 - 4.8 g/dL [facility] EGFR 87 >59 mL/min/1.7 3m2 [facility] Comment:Estimated glomerular filtration rate calculated using the CKD-EPI refit equation. ANION GAP 18 10 - 20 mmol/L [facility] Blood 11/13/2023 3:22 PM EDT 11/13/2023 3:25 PM EDT us Chrissie Fitzgerald BEHAVIORAL HEALTH CONSULTANT LAB BLOOD ORDERABLES Ramona l Result Performing Organization Address [facility] Co de Phone Number [address] [address] * Hemoglobin A1c (11/07/2018 9:10 AM EDT) HEMOGLOBIN A1C 5.3 4.3 - 5.8 % [facility] Blood 11/07/2018 9:10 AM EDT 11/07/2018 9:58 AM EDT us Jae Trinidad DO LAB BLOOD ORDERABLES Final Resul t Performing Organization Address [facility] Phone Number [address] [address] * Lipid panel (11/07/2018 9:10 AM EDT) HDL 51 mg/dL [facility] Comment: Interpretation <40 mg/dL: Low HDL cholesterol (major risk factor for CHD) Greater than or equal to 60 mg/dL: High HDL cholesterol ( negative risk factor for CHD) HDL - cholesterol is affected by a number of factors, e.g. smoking, excerise, hormones, sex and age. CHOLESTEROL 199 0 - 240 mg/dL [facility] TRIGLYCERIDES 113 30 - 160 mg/dL [facility] LDL 125 50 - 129 mg/dL [facility] Comment: LDL levels in terms of risk for coronary heart disease: <100 mg/dL: Optimal 100-129 mg/dL: Near or above optimal 130-159 mg/dL: Borderline high 160-189 mg/dL: High >190 mg/dL: Very High CARDIAC RISK RATIO 3.9 3.4 - 5.0 C [facility] Blood 11/07/2018 9:10 AM EDT 11/07/2018 9:58 AM EDT us Jae A Vivi DO LAB BLOOD ORDERABLES Final Resul t [address] [address] from Last 3 Months or Most Recently Relevant to Health Maintenance Insurance [facility] [place] [address] [place] [address] [place] [address] [place] [address] Care Teams Steel Checker Relationship Specialty Start Date End Date Jae Trinidad DO PCP - General 01/17/17 Jae Trinidad DO Historical LMR Provider 01/19/17 Roscoe Ambriz CNP 15 [facility], [address] [place] [address] Historical LMR Provider 01/19/17 Additional Source Comments The information contained in this document represents components of the legal health record. It is not the complete legal health record.[facility]
--- OUTSIDE RECORDS SUMMARY | 2024-12-11 15:57 | XMS_ITS | Encounter Summary ---
Author Organization [facility] Address [address] [place] [address] Phone Care Team Providers Care Inter Com Servicer Name Role Phone MonicaJae fraser Primary Care Provider [phone] ViviJae DO Unavailable Roscoe Ambriz CAGE TENDER Unavailable [phone] Encounter Details Date Type Department Care Team (Late st Contact Info) Description 02/01/2024 Procedure Pass [facility] Endoscopy Admitting Dept Virtual Department [address] [place] [address] Social History Tobacco Use Types Packs/Day Years [...] on filedocumented in this encounter Care Teams Inter Com Servicer Relationship Specialty Start Date End Date Jae Trinidad DO PCP - General 01/17/17 Jae Trinidad DO Historical LMR Provider 01/19/17 Roscoe Ambriz CAGE TENDER 15 [facility], [address] [place] [address] Historical LMR Provider 01/19/17 documented as of this encounter Additional Source Comments The information contained in this document represents components of the legal health record. It is not the complete legal health record.[facility]
== END 2024-12-11 12:58 | disposition home or self-care (01) ==
LOC: HO.NEURO 12:57
PROVIDERS: PCP Internal Medicine; Visit Provider Psychiatry & Neurology Neurology
DX: G62.9 Polyneuropathy, unspecified (principal)
CPT/HCPCS: 95886; 95912

== ENCOUNTER 2024-12-31 11:33 | Outpatient (REF) | payer MEDICAID, SELFPAY ==
--- OUTSIDE RECORDS SUMMARY | 2024-12-31 13:16 | XMS_ITS | Data Portability ---
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 [email or web address] Not Available 12/03 12:06:14 Result Notes None recorded. Problems Name Problem SNOMED Code Status Onset Date Resolution Date Notes Provider Name and Address Organization Details Recorded Time Bilateral tinnitus 0800680646781 Active 2023 MISSY ZUÑIGA, CLEMENT [address] [facility] [address], [place], [address], [facility] - [facility] 4 10:00:15 Problem Notes None recorded. Procedures Surgical History Date Name Laterality Status Provider Name and Address Organization Details Recorded Time 4 Comp Audio with Tymps - 34059 & 32971 completed MISSY ZUÑIGA, AUD [address] [facility] [address], [place], [address], [facility] - [facility] 12/21/2023 10:02:10 hernia repair completed Ly Yancey [facility] 12/21/2023 10:05:17 Imaging Results None recorded. Procedure Notes None recorded. Medical Equipment None Reported. Allergies Allergen ID Allergen Name Allergen Category Reaction Reaction Severity Criticality Documentation Date Start Date Code Code System Note Provider Name and Address Organization Details Recorded Time 896555 tramadol medicatio n Not available Not available Not available 12/21/2023 29866 RxNorm Ly richey [place] - [facility] 4 10:03:23 Medications Name Sig Start Date [...] Details Last Updated DateTime 12/21/2023 185.42 cm 641197.09 g 33 kg/m2 Ly Yancey [place] - [facility] 12/21/2023 10:20:33 Social History None recorded. Functional Status None recorded. Mental Status None recorded. Family History Nothing Reported. Medical History Condition Response Diabetes Y Hyperlipidemia Y Anxiety Y Hypertension Y Depression Y Past Encounters Encounter ID Performer Location Encounter Start Date Encounter Closed Date Diagnosis/Indication Diagnosis SNOMED-CT Code Diagnosis ICD10 Code Diagnosis IMO Codes Diagnosis Note [id number] MAT COSTA PA-C [facility] [address] [address] 12/21/2023 09:40:01 12/21/2023 11:48:47 Bilateral tinnitus 4359512342 102 H93.13 Right Ear:Essent ially normal hearing [...] Mao Member ID Guarantor Name 12/21/2023 1 [place] [facility] Marcellus Dominguez [id number] Marcellus Fraireaicharodriguez Notes Date Note Type Note Provider Name and Address Organization Details Recorded Time 12/21/2023 text/html ROS as noted in the HPI 58 year old male presents for evaluation [...] He has never had an otologic surgery. Mat richey [place] - [facility] 12/21/2023 10:52:52
[2025-01-01 05:03] LABS: Syphilis Screen Reactive (Nonreactive)
[2025-01-02 12:37] LABS: Rapid Plasma Reagin Ab Titer 1:2
[2025-01-09 15:13] LABS: T.Pallidum Particle Agg Test Reactive (Nonreactive)
== END 2024-12-31 11:34 | disposition home or self-care (01) ==
LOC: HO.LAB 11:33
PROVIDERS: Internal Medicine; PCP Internal Medicine; Visit Provider Psychiatry & Neurology Neurology
DX: G93.40 Encephalopathy, unspecified (principal); A52.3 Neurosyphilis, unspecified
CPT/HCPCS: 36415; 86592; 86593; 86780; 99212

== ENCOUNTER → 2024-12-31 11:33 | Outpatient (AMB) | payer MEDICAID, SELFPAY ==
--- NOTE | 2024-12-31 11:57 | MHC.OFFVIS ---
Intake Visit Reasons: Results Allergies No Known Allergies Allergy (Verified 10/16/24 14:33) HPI Comments Details: 59 yo man who reported that in Apr he developed insomnia, and a few months later in August, he developed severe constipation. In September, his treponomal test was positive can CSF protein level was high. He was treated with antibiotics but continues to have numerous symptoms. His recent brain MRI did not reveal any significant pathology. At this time, I did not find a physical reason for his symptoms. He was advised to see a behavioral therapist. He was back saying that he was feeling much better and many of his symptoms were gone. He did not have the blood test and wanted to have 1. [facility] Medical History (Updated 11/27/24 @ 13:12 by Bay Valverde MD) Neurosyphilis Lyme disease Obesity Depression Anxiety Insomnia Constipation Surgical History H/O umbilical hernia repair Social History Household Members: Family Housing: House Do you presently have visiting nurse or other home services: No Alcohol intake: current Alcohol intake frequency: holidays/special occasions only Patient Tobacco Use Status: Never used Tobacco e-Cigarette/Vaping Use: Never Used Second Hand Smoke Exposure: No service: No Review of Systems Const Details: No significant new issues. Physical Exam Neuro Other: He is alert and awake with normal spontaneity of speech fluency comprehension and affect. Balance gait and coordination are normal. Assessment & Plan Assessment & Plan (1) Encephalopathy: Code(s): G93.40 - Encephalopathy, unspecified Category: Medical Qualifiers: Encephalopathy type: unspecified encephalopathy Qualified Code(s): G93.40 - Encephalopathy, unspecified Plan Impression recommendations: 59 years old man who was treated for syphilis and had number of somatic and psychological symptoms. Now he was feeling much better. He was going to see an infectious disease doctor. I have requested his treponemal antibody titer compared to previous one. Otherwise he was reassurance and educated. He was already taking multiple vitamins. No follow-up appointment was made with an understanding that he could come back if needed. Orders: Orders Syphilis Screen Today G93.40 - Encephalopathy, unspecified Coding Level of Care Code Est Pt Level 4 (90797) Diagnoses Encephalopathy, unspecified type G93.40 Encephalopathy type: unspecified encephalopathy
--- OUTSIDE RECORDS SUMMARY | 2024-12-31 13:03 | XMS_ITS | Data Portability ---
Author Organization [facility], Main Office Address [address] [facility], [address] [place] [address] Care Team Providers Care Embroidery Specialist Name Role Phone CORWIN VAUGHN - 2ND FLOOR OTHER WAQAR MARIE Primary Care Provider Assessment Encounter Date Assessment [...] Address Organization Details Recorded Time Neurosyphil is 09663142 Active 2024 CHRISTY DOMINGUEZ NP [address] [facility], [facility] [address], [place], [address], [facility] 5 12:12:13 Chronic constipatio n 686975271 Active 2024 CHRISTY DOMINGUEZ NP [address] [facility], [address], [place], [address], [facility] 5 12:12:15 Essential hypertensio n 62179816 Active 2024 CHRISTY DOMINGUEZ NP [address] [facility], [address], [place], [address], [facility] [employer] [facility] 5 12:12:17 Lyme disease 37500494 Active 2024 CHRISTY DOMINGUEZ NP [address] [facility], [address], [place], [address], [employer] [facility] 5 12:12:19 Bilateral shoulder osteoarthri tis 2495518748786 08 Active 2024 CHRISTY DOMINGUEZ NP [address] [facility], [address], [place], [address], [facility] 5 12:12:21 Depressive disorder 72674772 Active 2024 CHRISTY DOMINGUEZ NP [address] [facility], [address], [place], [address], [place] [facility] 5 12:12:22 Dental caries 96379213 Active 2024 CHRISTY DOMINGUEZ NP [address] [facility], [address], [place], [address], [facility] 5 12:12:25 Problem Notes None recorded. [...] % 160/78 mm[Hg] CHRISTY DOMINGUEZ NP [address] [facility], [address], [place], [address], [facility] 5 10:56:21 Date Recorded Body weight Heart rate Respiratory rate Systolic And Diastolic Provider Name and Address Organization Details Last Updated DateTime 09/30/2024 660390.24 g 64 /min 18 /min 148/80 mm[Hg] Tony Gallardo MD [address] [facility], [address], [place], [address] , [facility] 09/30/2024 13:47:10 Date Recorded Heart rate Respiratory rate Body temperature Oxygen saturation Oxygen saturation in Arterial blood by Pulse oximetry Systolic And Diastolic Provider Name and Address Organization Details Last Updated DateTime 5 53 /min 18 /min 97.8 [degF] 97 % 97 % 140/82 mm[Hg] Janet Delgado NP [address] [facility], [address], [place], [address], [facility] 5 13:01:49 Date Recorded Body weight Heart rate Respiratory rate Body temperature Oxygen saturation Oxygen saturation in Arterial blood by Pulse oximetry Systolic And Diastolic Provider Name and Address Organization Details Last Updated DateTime 5 540767. 42 g 68 /min 18 /min 97.7 [degF] 99 % 99 % 134/75 mm[Hg] Jnaet Delgado NP [address] [facility], [address], [place], [address], [employer] [facility] 5 10:11:23 Social History Question Answer Notes LastModified by Sendmail Details LastModified Time Tobacco Smoking Status Former Smoker remote, 3 years, age 18-19 yrs. old CHRISTY DOMINGUEZ, GENEVA [address] [facility], [address], [place], [address], [facility] 09/26/2024 12:13:41 What Is Your Code Status? DNR/DNI No Dialysis, G Tube, IVF [email or web address] Information not available 09/26/2024 Where Do You Live? [facility] Lives With Mother And Brother [email or web address] Information not available 09/26/2024 Do You Have A Medical Power Of Ornamental Metal Erector? Yes Has HCP [email or web address] Information not available 09/26/2024 What Was The Date Of Your Most Recent Tobacco Screening? 09/26/2024 [email or web address] Information not available 09/26/2024 Do You Have An Out Of Hospital DNR? Yes [email or web address] Information not available 09/26/2024 Has Tobacco Cessation Counseling Been Provided? No [email or web address] Information not available 09/26/2024 Sex: Unknown Functional Status Question Answer Note LastModified by Organizat ion Details LastModified Time Do you use any illicit or recreational drugs? No Information not available 09/26/2024 Do you or have you ever used any other forms of tobacco or nicotine? No [email or web address] Information not available 09/26/2024 What is your level of alcohol consumption? None [email or web address] Information not available 09/26/2024 Mental Status None recorded. Family History Relationship Description Onset Age of this Age Resolved Age Notes LastModified by Organization Details LastModified Time Father Cerebrovascu lar accident [email or web address] Not available 12:12:41 Sister Malignant neoplasm of ovary [email or web address] Not available 2024 12:12:53 Medical History No medical history recorded. Past Encounters Encounter ID Performer Location Encounter Start Date Encounter Closed Date Diagnosis/Indication Diagnosis SNOMED-CT Code Diagnosis ICD10 Code Diagnosis IMO Codes Diagnosis Note [id number] CHRISTY DOMINGUEZ NP [facility] [address] 09/26/2024 10:55:21 09/30/2024 13:49:29 Neurosyphilis 88875271 A52.10 [id number] New dx.Seen by ID, now on IV Pen G 4,000,000 units q 4 hr x 14 days totalCBC, BMP q thurs x 3Follow up with Dr. Kline in 2 wks, Dr. Valverde in 1 weekMonito r sx.PT OT eval and tx. Depressive disorder 3548 9007 F32.A 61924269 Does not appear to be on meds at this time, monitor moodPsych eval prn Chronic constipation 236 535634 K59.09 882941 Sx. for quite a while, poor response to laxatives per pt.Will try supp or fleets daily to see if this will help with eliminatio n.Unsure if reglan would be helpful or notMaintai n fluids, miralaxKUB prn, ER if acuteMonit or GI status Essential hypertension 47042815 I10 57726 Started Norvasc 5 mg qd at [facility] - continueVS qdAdjust meds prn Bilateral shoulder osteoarthritis 5276781467 64523 M19.011 M19.012 44190688 X rays at [facility] neg.Contin ue APAP prnCan also consider diclofenac gel if needed. Lyme disease 18184834 A6 9.20 38191 ??dx'd years ago but not treated.Ly me disease DNA results pending per [facility] [id number] [facility] [address] 09/30/2024 13:46:54 10/01/2024 11:22:14 Neurosyphilis 74263598 A52.10 594055 see HPInewly dx neurosyphi lisfollowe d by IDstarted onIV Pen G 4M units q 4 through 8monitor cbcupdate ID with concernspa tient with complaints of long standing constipati on, neuropathy weight loss, fatigueexp lained nature of infection and that treatment has now started Chronic constipation 236 980591 K59.09 085028 long standing issue for patientnow no miralax 17 gm qdbowel protocol in placemonit or for effect Essential hypertension 92090773 I10 46890 started on norvasc 5 mg qd in hospitalmo nitor bp and need to titrate Bilateral shoulder osteoarthritis 5584512556 18066 M19.011 M19.012 44255681 appears controlled with tylenolcon tinued Asthenia 20891221 R53.1 07497 PT OT eval and treatmonit or fall risk and need for increased support in community Primary insomnia 6722588 F51.01 60204 melatonin 6 mg qhsmonitor for effect and need to titrate Abnormal weight loss 267 763694 R63.4 584608 see abovedieta ry to eval [id number] Janet Delgado NP [address] [address] 10/09/2024 12:54:48 10/11/2024 08:16:16 Neurosyphilis 09668557 A52.10 863966 see HPI, likely symptoms may take longer to resolvenew ly dx neurosyphi lis 10/09 followed by ID, will get labs in am and send results to ID to determine if Picc can come out. pt remains with symptoms. nsg to sched outpt appt with [facility] last week stable IV Pen G 4M units q 4 through 78contmon itor cbcupdate ID with concerns, may need to fu with ID outptpatie nt with complaints of long standing constipati on, neuropathy weight loss, fatigueexp lained nature of infection and that treatment has now started Asthenia 49567321 R53.1 69529 PT OT eval and treatmonit or fall risk and need for increased support in community Chronic constipation 236 479495 K59.09 745127 long standing issue for patient, denies constipati on today, eating wellmirala x 17 gm qdbowel protocol in placemonit or for effect Abnormal weight loss 267 591786 R63.4 521818 has lost a sig amount of weightsee hpidietary to eval Essential hypertension 16178624 I10 92614 bp 140/80 this am prior to medstarted on norvasc 5 mg qd in hospital, contmonito r bp and need to titrate Bilateral shoulder osteoarthritis 5696799875 21978 M19.011 M19.012 74672726 appears controlled with tylenolcon polysomnographic tech sched if needed10/09 start diclofenac to shoulders in amcontinue d Lyme disease 20955339 A6 9.20 90182 per historydx' d years ago but not treated. Lyme disease DNA results pending per [facility], [place] in [place] [id number] Janet Delgado NP [facility] [address] 10/11/2024 10:07:06 10/15/2024 08:21:52 Neurosyphilis 44468920 A52.10 476195 per hospital summary symptoms may take longer [...] in one week also Bilateral shoulder osteoarthritis 9845368398 21647 M19.011 M19.012 58874589 appears controlled with tylenolcon polysomnographic tech sched if neededdicl ofenac gel (OTC)to shoulders in am and prn started herefu with pcp outpt Essential hypertension 39808888 I10 86937 bp 134/75 stablestar dot on norvasc 5 mg qd in hospital, script given on dcmonitor bp and need to titrate outpt with pcp Asthenia 41842079 R53.1 55317 PT OT eval and treat prn outptmonit or fall risk and need for increased support in community with pcp outpt Chronic constipation 236 978618 K59.09 678532 long standing issue for patient, denies constipati on today, eating wellmirala x 17 gm qdbowel protocol in placefu with pcp outpt Abnormal weight loss 267 783045 R63.4 369903 has lost a sig amount of weight over last few years per reportsee hpifu with pcp outpt Lyme disease 29844831 A6 9.20 49488 per historydx' d years ago but not treated per dc summary Lyme disease DNA results pending per [facility], not in yetfu with ID on saturday 10/14 and pcp outpt for further management Primary insomnia 7000918 F51.01 53466 melatonin 6 mg qhsmonitor for effect and need to titrate outpt with pcp Health Concerns Section Related Observation LastModified by Organization Detai ls LastModified Time None Recorded Concern Status LastModified by Organization Details LastModified Time None Recorded Advance Directives Directive None Recorded Payers Insurance Date Sequence Insurance Name Policy Number Policy Mao Covered Member ID Mao Member ID Guarantor Name 10/09/2024 1 [place] [facility] Marcellus Fraireaicharodriguez [id number] Marcellus Alberto Notes Date Note Type Note Provider Name and Address Organization Details Recorded Time 5 text/html Marcellus is seen today for initial intake. He is a 59 yo male, admitted to [facility] from [facility] on 09/25/24 for continued care and rehab after a hosp. for neurosyphilis. He presented to [facility] 09/23/24 from ID to start IV Pen [...] this am.Labs today pending.No labs sent from [facility] stay. Upon exam, Marcellus is in bed, [...] said they did an x ray at [facility] which showed stool but not as bad as they thought. VALDOVINOS: low fall risk PMH: depression, low testosterone, constipation, HTN, OA shoulders, ? Lyme dz., dental decayMOLST: CHRISTY DOMINGUEZ NP [address] [facility], [address], [place], [address], [facility] [employer] 09/26/2024 12:27:16 5 text/html Patient is a [...] eval and treat Tony Gallardo MD [address] [facility], [address], [place], [address], [facility] [employer] 09/30/2024 14:26:52 5 text/html Marcellus is seen today for an acute visit. PMH: depression, low testosterone, constipation, HTN, OA shoulders, ? Lyme dz., dental decay Marcellus is a 59 yo male, admitted to [facility] from [facility] on 09/25/24 for continued care and rehab [...] not done this am and send to ME for further evaluation if needed of abx for neurosyphilis. of note:He presented to [facility] 09/23/24 from ID to start IV Pen [...] low fall risk Janet Delgado, GENEVA [address] [facility], [address], [place], [address], [facility] [employer] 10/09/2024 13:30:31 5 text/html Marcellus is seen today for a discharge visit. PMH: depression, low testosterone, constipation, HTN, OA shoulders, ? Lyme dz., dental decay He presented to [facility] 09/23/24 from ME to start IV Pen G and PICC [...] is a 59 yo male, admitted to [facility] from [facility] on 09/25/24 for continued care and rehab after a hosp. for neurosyphilis now completed therapy and abx and requesting to discharge home today. On exam, He reports various moving pains/aches in the shoulders, knees, etc.. and reports red areas come and go on his body, however none seen on admission here at [facility] from 09/25/24-10/11/24. He is alert and oriented x 4. He states he is doing okay and needs to get a car but his mother that he lives with will pick him [facility] today [facility]. Staff note he is up [...] low fall risk Janet Delgado NP [address] [facility], [address], [place], [address], [facility] 10/11/2024 10:42:24
--- OUTSIDE RECORDS SUMMARY | 2024-12-31 13:03 | XMS_ITS | Encounter Summary ---
Author Organization [facility] Address [address] [place] [address] Phone Care Team Providers Care Tree Faller Name Role Phone Jae Trinidad DO Primary Care Provider [phone] Jae Trinidad DO Unavailable Keiry Ball MD Unavailable [phone] Edwardo Cabello MD Unavailable Roscoe Ambriz CNP Unavailable [phone] Vivi Jae Trent DO Unavailable Encounter Details Date Type Department Care Team (Late st Contact Info) Description 11/07/2018 Transcribe Orders [facility] [address] [place] [id number] Jae Trinidad DO [address] [facility] [place], [place] [id number] Essential hypertension, malignant (Primary Dx); Type 2 diabetes mellitus with complication, unspecified whether correction insulin use; Lyme disease Social History Tobacco [...] blot, blood (11/07/2018 9:10 AM EDT) Pathologist [facility] Lyme AB IgG Negative Negative [facility] Lyme AB IgM Negative Negative [facility] Blood 11/07/2018 9:10 AM EDT 11/07/2018 9:58 AM EDT us Jae A Bigda DO LAB BLOOD ORDERABLES Final Resul t Performing Organization Address [facility] Co de Phone Number [address] [address] * TSH (11/07/2018 9:10 AM EDT) [facility] TSH 2.55 0.27 - 4.20 uIU/mL [facility] Blood 11/07/2018 9:10 AM EDT 11/07/2018 9:58 AM EDT us Jae A Bigda DO LAB BLOOD ORDERABLES Final Resul t Performing Organization Address [facility] Co de Phone Number [address] [address] * Comprehensive metabolic panel (11/07/2018 9:10 AM EDT) [facility] SODIUM 140 133 - 146 mmol/L [facility] POTASSIUM 4.8 3.3 - 5.1 mmol/L [facility] CHLORIDE 103 96 - 108 mmol/L [facility] CO2 28 21 - 35 mmol/L [facility] BUN 13 6 - 19 mg/dL [facility] CREATININE 0.80 0.5 - 1.5 mg/dL [facility] GLUCOSE 98 70 - 99 mg/dL [facility] ALBUMIN 4.0 3.9 - 4.8 g/dL [facility] TOTAL PROTEIN 7.6 6.5 - 8.0 g/dL [facility] CALCIUM 9.2 8.4 - 10.3 mg/dL [facility] ALKALINE PHOSPHATASE 78 39 - 117 U/L [facility] TOTAL BILIRUBIN 0.4 0.0 - 1.2 mg/dL [facility] AST 27 0 - 37 U/L [facility] ALT 31 0 - 40 U/L [facility] GLOBULIN 3.6 1 - 4.8 g/dL [facility] EGFR 101 >59 mL/min/1.7 3m2 [facility] Comment:If patient is black, multiply result by 1.159. Estimated glomerular filtration rate calculated using the CKD-EPI equation. ANION GAP 14 10 - 20 mmol/L [facility] Blood 11/07/2018 9:1 0 AM EDT 11/07/2018 9:58 AM EDT us Jae A Bigda DO LAB BLOOD ORDERABLES Final Resul t Performing Organization Address [facility] Co de Phone Number [address] [address] * Hemoglobin A1c (11/07/2018 9:10 AM EDT) HEMOGLOBIN A1C 5.3 4.3 - 5.8 % [facility] Blood 11/07/2018 9:10 AM EDT 11/07/2018 9:58 AM EDT us Jae A Bigda DO LAB BLOOD ORDERABLES Final Resul t Performing Organization Address [facility] Co de Phone Number [address] [address] * Reverse T3 (11/07/2018 9:10 AM EDT) T3 REVERSE 18 10 - 24 ng/dL [facility] Comment: (NOTE) ADDITIONAL INFORMATION This test was developed and its performance characteristics determined by [facility] in a manner consistent with CLIA requirements. This test has not been cleared or approved by the U.S. Food and Drug Administration. Blood 11/07/2018 9:10 AM EDT 11/07/2018 9:58 AM EDT us Jae Trinidad DO LAB BLOOD ORDERABLES Final Resul t Performing Organization Address [facility] Co de Phone Number [facility] [address] [place] [place] [address] * Lipid panel (11/07/2018 9:10 AM EDT) HDL 51 mg/dL [facility] Comment: Interpretation <40 mg/dL: Low HDL cholesterol (major risk factor for CHD) Greater than or equal to 60 mg/dL: High HDL cholesterol ( negative risk factor for CHD) HDL - cholesterol is affected by a number of factors, e.g. smoking, excerise, hormones, sex and age. CHOLESTEROL 199 0 - 240 mg/dL [facility] TRIGLYCERIDES 113 30 - 160 mg/dL [facility] LDL 125 50 - 129 mg/dL [facility] Comment: LDL levels in terms of risk for coronary heart disease: <100 mg/dL: Optimal 100-129 mg/dL: Near or above optimal 130-159 mg/dL: Borderline high 160-189 mg/dL: High >190 mg/dL: Very High CARDIAC RISK RATIO 3.9 3.4 - 5.0 [facility] Blood 11/07/2018 9:10 AM EDT 11/07/2018 9:58 AM EDT us Jae Trinidad DO LAB BLOOD ORDERABLES Final Resul t Performing Organization Address [facility] Co de Phone Number [address] [address] documented in this encounter Visit Diagnoses Diagnosis Essential hypertension, malignant- Primary Type 2 diabetes mellitus with complication, unspecified 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 Lyme disease documented in this encounter Care Teams Tree Faller Relationship Specialty Start Date End Date Jae Trinidad DO PCP - General 01/17/17 Jae Trinidad DO Historical LMR Provider 01/19/17 Keiry Ball MD [address] [address] Historical LMR Provider 01/19/17 Edwardo Cabello MD [address] [place] [address] Historical LMR Provider 01/19/17 04/10/21 Roscoe Ambriz CNP [address] [address] Historical LMR Provider 01/19/17 Jae Trinidad DO [address] [place] [address] [place] [address] Insurance Assigned Provider 06/02/1808/20 documented as of this encounter Additional Source Comments The information contained in this document represents components of the legal health record. It is not the complete legal health record.[facility]
--- OUTSIDE RECORDS SUMMARY | 2024-12-31 13:04 | XMS_ITS | Encounter Summary ---
Author Organization [facility] Address [address] [place] [address] Phone Care Team Providers Care Lunchroom Mother Name Role Phone MonicaJae fraser Primary Care Provider [phone] ViviJae DO Unavailable Roscoe Ambriz FLARE BREAKER Unavailable [phone] Encounter Details Date Type Department Care Team (Late st Contact Info) Description 02/01/2024 Procedure Pass [facility] Endoscopy Admitting Dept Virtual Department [address] [place] [address] Social History Tobacco Use Types Packs/Day Years [...] on filedocumented in this encounter Care Teams Lunchroom Mother Relationship Specialty Start Date End Date Jae Trinidad DO PCP - General 01/17/17 Jae Trinidad DO Historical LMR Provider 01/19/17 Roscoe Ambriz FLARE BREAKER 15 [facility], [address] [place] [address] Historical LMR Provider 01/19/17 documented as of this encounter Additional Source Comments The information contained in this document represents components of the legal health record. It is not the complete legal health record.[facility]
--- OUTSIDE RECORDS SUMMARY | 2024-12-31 13:04 | XMS_ITS | Clinical Summary ---
Author Organization Formerly [facility] Address [address] [place] [phone] Phone Care Team Providers Care Automotive Machinist Apprentice Name Role Phone Jae Trinidad Primary Care Provider [phone] ViviJae DO Unavailable Roscoe Ambriz COMMUNITY EDUCATION SPECIALIST Unavailable [phone] Allergies Active Allergy Reactions Criticality Noted Date [...] ecorded Are you denied basic needs s [facility] as food, clothing, or medical care? No 01/29/2024 In the past 12 months have y ou been in a relationship with a person who hurts, threatens, or tries to control you? 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 Lyme disease LIPID PANEL Routine 11/07/2018 9:10 AM EDT Essential hypertension, malignant Type 2 diabetes mellitus with complication, unspecified whether assisted insulin use Lyme disease from Last 3 Months or Most Recently Relevant to Health Maintenance Results * (ABNORMAL) Comprehensive metabolic panel (11/13/2023 3:22 PM EDT) SODIUM 139 133 - 146 mmol/L [facility] POTASSIUM 4.7 3.3 - 5.1 mmol/L [facility] CHLORIDE 102 96 - 108 mmol/L [facility] CO2 24 21 - 35 mmol/L [facility] BUN 9 6 - 19 mg/dL [facility] CREATININE 1.00 0.5 - 1.5 mg/dL [facility] GLUCOSE 101(H) 70 - 99 mg/dL [facility] ALBUMIN 4.3 3.9 - 4.8 g/dL [facility] TOTAL PROTEIN 7.5 6.5 - 8.0 g/dL [facility] CALCIUM 9.4 8.4 - 10.3 mg/dL [facility] ALKALINE PHOSPHATASE 62 39 - 117 U/L [facility] TOTAL BILIRUBIN 0.6 0.0 - 1.2 mg/dL [facility] AST 20 0 - 37 U/L [facility] ALT 17 0 - 40 U/L [facility] GLOBULIN 3.2 1 - 4.8 g/dL [facility] EGFR 87 >59 mL/min/1.7 3m2 [facility] Comment:Estimated glomerular filtration rate calculated using the CKD-EPI refit equation. ANION GAP 18 10 - 20 mmol/L [facility] Blood 11/13/2023 3:22 PM EDT 11/13/2023 3:25 PM EDT us Chrissie Fitzgerald [facility] DIRECTOR LAB BLOOD ORDERABLES Ramona l Result Performing Organization Address [facility] Co de Phone Number [address] [address] * Hemoglobin A1c (11/07/2018 9:10 AM EDT) HEMOGLOBIN A1C 5.3 4.3 - 5.8 % [facility] Blood 11/07/2018 9:10 AM EDT 11/07/2018 9:58 AM EDT us Jae Trinidad DO LAB BLOOD ORDERABLES Final Resul t Performing Organization Address [facility] Phone Number [address] [phone] * Lipid panel (11/07/2018 9:10 AM EDT) HDL 51 mg/dL [facility] Comment: Interpretation <40 mg/dL: Low HDL cholesterol (major risk factor for CHD) Greater than or equal to 60 mg/dL: High HDL cholesterol ( negative risk factor for CHD) HDL - cholesterol is affected by a number of factors, e.g. smoking, excerise, hormones, sex and age. CHOLESTEROL 199 0 - 240 mg/dL [facility] TRIGLYCERIDES 113 30 - 160 mg/dL [facility] LDL 125 50 - 129 mg/dL [facility] Comment: LDL levels in terms of risk for coronary heart disease: <100 mg/dL: Optimal 100-129 mg/dL: Near or above optimal 130-159 mg/dL: Borderline high 160-189 mg/dL: High >190 mg/dL: Very High CARDIAC RISK RATIO 3.9 3.4 - 5.0 [facility] Blood 11/07/2018 9:10 AM EDT 11/07/2018 9:58 AM EDT us Jae A Vivi DO LAB BLOOD ORDERABLES Final Resul t [address] [address] from Last 3 Months or Most Recently Relevant to Health Maintenance Insurance [facility] [place] [address] [place] [address] [place] [address] Care Teams Automotive Machinist Apprentice Relationship Specialty Start Date End Date Jae Trinidad DO PCP - General 01/17/17 Jae Trinidad DO Historical LMR Provider 01/19/17 Roscoe Ambriz CNP [facility], [address] [place] [id number] Historical LMR Provider 01/19/17 Additional Source Comments The information contained in this document represents components of the legal health record. It is not the complete legal health record.[facility]
--- OUTSIDE RECORDS SUMMARY | 2024-12-31 13:04 | XMS_ITS | Encounter Summary ---
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 Name Role Phone Jae Trinidad DO Primary Care Provider [phone] Jae Trinidad DO Unavailable Keiry Ball MD Unavailable [phone] Edwardo Cabello MD Unavailable Roscoe Ambriz CNP Unavailable [phone] Jae Trinidad DO Unavailable Reason for Referral * Physical Therapy (Routine) - Closed Specialty Diagnoses / Procedures Referred By Devin hendricks Referred To Contact Physical Therapy Diagnoses Encounter for rehabilitation Jae Trinidad DO Phone: tel: fax: mailto:[email or web address] [address] [place] [address] Phone: tel: Referral ID Status Reason Start Date Expiration Date Visits Re quested Visits Authorized [id number] Closed 09/16/2020 09/16/2021 1 1 Encounter Details Date Type Department Care Team ([facility] st Contact Info) Description 09/16/2020 Transcribe Orders [facility] [address] [place], [place] [id number] Jae Trinidad DO [address] [place] [address] [email or web address] Encounter for rehabilitation (Primary Dx) Social History [...] Diagnoses Orde r Schedule Ambulatory referral to [facility] Physical Therapy Outpatient Referral Routine Encounter for rehabilitation Ordered: 09/16/2020 documented as of this encounter Visit Diagnoses Diagnosis Encounter for rehabilitation- Primary documented in this encounter Care Teams Frame Pulley Mortising Machine Operator Relationship Specialty Start Date End Date Jae Trinidad DO PCP - General 01/17/17 Jae Trinidad DO Historical LMR Provider 01/19/17 Keiry Ball MD [address] [place] [phone] [email or web address] Historical LMR Provider 01/19/17 Edwardo Cabello MD [address] [place] [address] [email or web address] Historical LMR Provider 01/19/17 04/10/21 Roscoe Ambriz CNP [address] [place] [address] [email or web address] Historical LMR Provider 01/19/17 Jae Trinidad DO [address] [place] [address] [email or web address] Insurance Assigned Provider 06/02/1808/20 documented as of this encounter Additional Source Comments The information contained in this document represents components of the legal health record. It is not the complete legal health record.[facility]
--- OUTSIDE RECORDS SUMMARY | 2024-12-31 13:04 | XMS_ITS | Data Portability ---
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 REVIEW OF PRIOR EXTERNAL NOTES/RESULTS, ORDERING OF TEST(S) CATEGORY 2. ASSESSMENT REQUIRING INDEPENDENT HISTORIAN(S) INCLUDE WHO THE HISTORIAN IS AND RELATION TO PT AND WHY PT IS UNABLE TO GIVE COMPLETE HISTORY ELEMENT 3: RISK (LOW) RISK OF COMPLICATIONS AND/OR MORBIDITY OR MORTALITY OF PATIENT MANAGEMENT PROVIDER MUST THOROUGHLY DOCUMENT ALL OF THE ELEMENTS COVERED Not available 12/09/2024 11:09:35 Plan of Treatment Reminders Order Date Submit Date Provider Last Modified By Organization Details Last Modified Time Details Appointments None recorded. Lab vitamin B12 + folate, serum or blood 2024 025 ATHENAFAX [facility], [address] [place], [address], 11:15:14 homocystei ne, serum or plasma 2024 025 ATHENAFAX [facility], [address] [place], [address], 5 11:15:14 vitamin D, 25-hydroxy , total, serum 2024 025 ATHENAFAX [facility], [address] [place], [address], 5 11:15:14 CBC w/ auto diff 2024 025 [facility], [address] [place], [address], 5 11:15:14 CMP, serum or plasma 2024 025 MEHRAN [facility], [facility] [place], [address], 5 08:50:38 TSH + T4, serum 2024 025 ATHENAX [facility], [address] [place] [address], [address], 11:15:14 iron + TIBC + ferritin, serum 2024 025 [facility], [address] [place] [address], [address], 11:15:14 eneida-ba rr virus (ebv) IgG + IgM panel, serum 2024 025 [facility], [address] [place] [address], [address], 11:15:14 CMP, serum or plasma 2024 025 [facility], [address] [place] [address], [address], 11:37:38 CBC 2024 025 [facility], [address] [place] [address], [address], 11:37:38 PSA, serum or plasma 2024 025 [facility], [address] [place] [address], [address], 5 11:37:38 hemoglobin A1c, QN, blood 2024 025 [facility], [address] [place] [address], [address], 5 12:10:36 testostero ne, total, serum 2024 025 [facility], [address] [place] [address], [address], 5 12:01:32 C-reactive protein, quantitati ve, serum or plasma 2024 [facility], [address] [place] [address], [address], 5 12:10:36 ESR (erythrocy te sedimentat ion rate), blood 2024 025 [facility], [address] [place] [address], [address], 5 12:10:36 rf (rheumatoi d factor), serum 2024 [facility], [address] [place] [address], [address], 5 12:10:36 RPR (rapid plasma reagin), serum 2024 [facility], [address] [place] [address], [address], 5 12:10:36 lyme igg + igm Ab, western blot, serum 2024 [facility], [address] [place] [address], [address], 5 12:37:22 cd4 T-cells, blood 2024 025 [facility], [address] [place] [address], [address], 5 12:44:17 vitamin B12 + folate, serum or blood 2024 025 [facility], [address] [place] [address], [address], 5 12:10:36 vitamin D, 25-hydroxy , total, serum 2024 025 [facility], [address] [place] [address], [place], [address], 5 12:10:36 CMP, serum or plasma 2022 023 MEHRAN [facility] (Centralized Electronic Ordering - All Locations), Patient Can Go To The Location Of Their Choice, 4 17:19:46 lipid panel, blood 2022 023 [email or web address] [facility] (Centralized Electronic Ordering - All Locations), Patient Can Go To The Location Of Their Choice, 3 08:31:45 CBC 2022 023 MEHRAN [facility] (Centralized Electronic Ordering - All Locations), Patient Can Go To The Location Of Their Choice, 4 17:19:46 PSA, serum or plasma 2022 023 ATHENAFAX [facility] (Centralized Electronic Ordering - All Locations), Patient Can Go To The Location Of Their Choice, 3 14:58:18 TSH, serum or plasma 2022 023 MEHRAN [facility] (Centralized Electronic Ordering - All Locations), Patient Can Go To The Location Of Their Choice, 4 11:18:00 vitamin D, 25-hydroxy , total, serum 2022 023 ATHENAFAX [facility] (Centralized Electronic Ordering - All Locations), Patient Can Go To The Location Of Their Choice, 3 14:58:19 HbA1c (hemoglobi n A1c), blood 2022 023 MEHRAN [facility] (Centralized Electronic Ordering - All Locations), Patient Can Go To The Location Of Their Choice, 4 11:18:01 testostero ne, total, serum 2022 023 ATHENAFAX [facility] (Centralized Electronic Ordering - All Locations), Patient Can Go To The Location Of Their Choice, 3 14:58:19 Referral endocrinol ogy referral 2023 024 [facility] Jarret Christianson DO, [address], [place], [address], 4 08:08:35 sleep medicine referral 2023 024 [facility], [address] [facility], [facility] [address], [place], [address], 4 09:15:30 Procedures None recorded. Surgeries None recorded. Imaging CT, abdomen, w/o contrast - abdominal wall abcess with persistent pain 2023 024 [facility], [address] [place] [address], [address], 4 09:24:59 US, abdomen - non-healin g wound ? abcess 2022 023 [facility], [address] [place] [address], [address], 3 09:26:33 Medication Orders Risperdal 3 mg tablet [address] [facility], [address] [place] [address], [address], 5 11:54:19 quetiapine 25 mg tablet [address] [facility], [address] [place] [address], [address], 4 13:55:09 buspirone 10 mg tablet [address] [facility], [address] [place] [address], [address], 5 11:56:00 testostero ne 1 % (25 mg/2.5 gram) transderma l gel packet 2022 023 [facility], [address] [facility], [place], [address], 11:54:08 Patient TargetsNo targets recorded. Patient Instructions Encounter Date Encounter Id Patient Instructions Last Modified By Organization Details Last Modified Time 02/20/2023 [id number] leg and ankle edema: care instructions Not available 02/20/2023 14:56:59 08/09/2023 [id number] abdominal pain: care instructions Not available 08/09/2023 13:57:00 insomnia: care instructions Not available 08/09/2023 13:53:05 Reason for Referral Endocrinology Referral for H ypotestosteronism hx of hypotestoeronism with poor reaction to T gel/T injection, continued fatigue and brain fog Referring Physician: Olena Segal, Internal Medicine, Encounter Date: 06/07/2023 Sleep Medicine Referral for Fatigue possible sleep apnea Referring Physician: Olena Segal, Internal Medicine, Encounter Date: 06/07/2023 Results Created Date Observation Date Name Description Value Unit Range Abnormal Flag Note LastModifiedBy Organization Detail LastModifiedTime 03/22/2003/22/2023 US, abdom en No observ ation record ed. [email or web address] [address], [address], 03/24/2023 08:50:06 08/17/1908/17/2023 CT, abdom en, w/o contr ast No observ ation record ed. [address], [address], 08/22/2023 16:23:21 08/31/19 24 08/31/2023 US, renal No observ ation record ed. [email or web address] Not Available 2023 08:44:45 09/27/19 24 09/27/2023 emerg ency dept. visit * No observ ation record ed. [address], [address], 09/29/2023 10:22:34 10/28/19 24 10/28/2023 XR, abdom en No observ ation record ed. [facility] (Medical Records) [address] [place], [address], 10/28/2023 20:20:56 10/28/19 24 10/28/2023 CT, abdom en, w/o contr ast No observ ation record ed. [address] (Medical Records) [address] [place], [address], 10/29/2023 22:21:43 09/04/19 25 09/03/2024 XR, kidne y + urete r + bladd er No observ ation record ed. [address] (Medical Records) [address] [facility] [place], [address], 09/05/2024 15:12:09 09/21/19 25 09/20/2024 CT, head, w/o contr ast No observ ation record ed. [address] (Medical Records) [address] [facility] [place], [address], 09/20/2024 16:30:32 09/24/19 25 09/23/2024 XR, shoul shanna, 2 or more view No observ ation record ed. [email or web address] [facility] (Medical Records) [address] [place], [address], 09/24/2024 08:49:03 09/24/19 25 09/23/2024 XR, shoul shanna No observ ation record ed. [email or web address] [facility] (Medical Records) [address] [facility] [place], [address], 09/24/2024 08:49:28 09/25/19 25 09/24/2024 XR, chest , 1 view No observ ation record ed. [email or web address] [facility] (Medical Records) [address] [place], [address], 09/24/2024 12:16:16 09/25/19 25 09/24/2024 CT, chest , w/o contr ast No observ ation record ed. [email or web address] [facility] (Medical Records) [address] [facility] [place], [address], 09/24/2024 13:32:43 09/25/1909/24/2024 MRI, face, w/o contr ast No observ ation record ed. [email or web address] [facility] (Medical Records) [address] [facility] [place], [address], 09/24/2024 16:45:26 Result Notes None recorded. Problems Name Problem SNOMED Code Status Onset Date Resolution Date Notes Provider Name and Address Organization Details Recorded Time Lyme disease 10638828 Active 2018 Dilcia richey [facility] 9 08:32:38 Morbid obesity 984422368 Active 2018 Dilcia richey [facility] 9 08:32:43 Hyperten sive disorder 06248268 Active 2018 Dilcia richey [facility] 9 08:32:46 Hyperlip idemia 80563220 Active 2018 Dilcia richey [facility] 9 08:32:52 Schizoaf fective schizoph rolanda 968599754 Active 2018 questiona ble Dilcia richey [facility] 9 08:33:14 Hernia repair Active 2018 Dilcia richey [facility] 9 08:33:34 Diabetes mellitus 62444594 Active 2018 Dilcia richey [facility] 9 08:33:37 Edema 303502417 Active 2018 Jae Trinidad, DO [address] [place] [address], [address], [facility] 9 14:26:17 Edema of lower extremit y 851843154 Active 2021 Jae Trinidad, DO [address] [place] [address], [address], [facility] 2 11:52:03 Fatigue 69559137 Active 2021 Jae Trinidad, DO [address] [place] [address], [address], [facility] 5 11:08:59 Low back pain 585202607 Active 2021 Jae Trinidad, DO [address] [place] [address], [address], [facility] 2 11:55:00 Hypotest osteroni sm 30248595201 04 Active 2021 Jae Trinidad, DO [address] [place] [address], [address], [facility] 2 12:11:53 Pain of multiple joints 15844816 Active 2022 Jae Trinidad, DO [address] [place] [address], [address], [facility] 5 12:02:03 Mass of skin of abdomen 37442227979 149004 Active 2022 Jae Trinidad, DO [address] [place] [address], [address], [facility] 3 14:25:12 Open wound of anterior abdomina l wall 294869818 Active 2022 Jae Trinidad, DO [address] [place] [address], [address], [facility] 3 17:01:32 Open wound of anterior abdomina l wall 440422174 Active 2022 Jae Trinidad DO [address] [place] [address], [address], [facility] 3 17:01:58 Non-heal ing surgical wound 764923212 Active 2022 Jae Trinidad, DO [address] [place] [address], [address], [facility] 3 11:59:53 Deficien cy of vitamin D3 082218814 Active 2022 Jae Trinidad, DO [address] [place] [address], [address], [facility] 3 14:52:07 Insomnia 382466305 Active 2023 Jae Trinidad, DO [address] [place] [address], [address], [facility] 4 16:32:56 Depressi ve disorder 59486693 Active 2023 NARCISO KERN [address] [place] [address], [address], [facility] 4 10:53:17 Anxiety 72341780 Active 2023 NARCISO KERN [address] [place] [address], [address], [facility] 4 10:53:25 Type 2 diabetes mellitus 80846440 Active 2023 NARCISO KERN [address] [place] [address], [address], [facility] 4 10:57:13 Obesity 368330755 Active 2023 NARCISO KERN [address] [place] [address], [address], [facility] 4 10:57:13 Anxiety disorder 229229201 Active 2023 Jae Trinidad DO [address] [place] [address], [address], [facility] 4 13:01:04 Tinnitus 98129160 Active 2023 Jae Trinidad DO [address] [place] [address], [address], [facility] 4 20:44:34 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 571056681 Active 2023 Jae Trinidad, DO [address] [place] [address], [address], [facility] 4 13:49:45 Abdomina l pain 25463588 Active 2023 Jae Trinidad DO [address] [place] [address], [address], [facility] 4 13:54:06 Complex renal cyst 481826671 Active 2023 Jae Trinidad DO [address] [place] [address], [address], [facility] 4 22:09:29 Renal mass 549316227 Active 2023 Jae Trinidad DO [address] [place] [address], [address], [facility] 4 23:00:02 Constipa tion 95747560 Active 2023 Jae Trinidad DO [address] [place] [address], [address], [facility] 4 21:54:30 Chronic constipa tion 874401887 Active 2023 Jae Trinidad DO [address] [place] [address], [address], [facility] 4 20:45:36 Problem Notes None recorded. Medical Equipment None Reported. Allergies Allergen ID Allergen Name Allergen Category Reaction Reaction Severity Criticality Documentation Date Start Date Code Code System Note Provider Name and Address Organization Details Recorded Time 2742 tramadol medicatio n Not available Not available Not available 04/30/2018 54467 [facility] 9 08:32:29 Medications Name Sig Start Date Stop Date Status Note LastModified by Organization Details LastModified Time losartan 50 mg tablet TAKE 1 TABLET BY MOUTH ONCE DAILY 06/06 /2025 completed Not Available Not Available Not Available [...] Available Vitals Date Recorded Body height Body mass index (BMI) Body weight Heart rate Respiratory rate Oxygen saturation Oxygen saturation in Arterial blood by Pulse oximetry Systolic And Diastolic Provider Name and Address Organization Details Last Updated DateTime 4 185.42 cm 40.1 kg/m2 800759. 08 g 92 /min 18 /min 96 % 96 % 158/82 mm[Hg] Mike Leiva [facility] 4 13:30:13 Date Recorded Body weight Oxygen saturation Oxygen saturation in Arterial blood by Pulse oximetry Heart rate Systolic And Diastolic Provider Name and Address Organization Details Last Updated DateTime 5 164317. 07 g 96 % 96 % 72 /min 160/90 mm[Hg] Nani Gilmore [facility] 5 11:49:59 Social History Question Answer Notes LastModified by Organizat ion Details LastModified Time Tobacco Smoking Status Former Smoker Not Available [facility] 02/04/2020 03:36:23 What Was The Date [...] ICD10 Code Diagnosis IMO Codes Diagnosis Note [id number] Jae Trinidad [facility] [address] [facility],[place] [address] 04/30/2018 14:49:50 04/30/2018 15:19:40 Ganglion/synovial cyst - hand 929979097 M67.442 Diabetes mellitus 724498 09 E11.9 Abscess of skin and/or subcutaneous tissue 10459468 L02.91 [id number] Jae Trinidad [facility] [address] [place] [address] 11/02/2018 13:37:33 11/02/2018 14:55:17 Hypertensive disorder 10437807 I10 will add spironolac tone 25mg Diabetes mellitus 387539 09 E11.9 fantastic a1c at 5.3 last time will need new lab Lyme disease 15203040 A6 9.20 will follow up Lumbosacra l radiculitis 14224194 M54.17 from injury [id number] Jae Trinidad [facility] [address] [facility],[place] [address] 05/17/2019 13:38:00 05/17/2019 15:07:18 Cellulitis of lower leg 745337160 L03.119 will add amox., but have informed pt that the progress is likely related to the LQ and not the amox. he is adamant that in the past hes had cellulitis that was treated with amox. considerin g the low risk of amox, will add this as long as he agrees to continue the LQ Hypertensive disorder 38 630663 I10 still quite high says he's had trouble with lisinopril in the past has f/u planned will recheck bp at that time Edema of l ower extremity 928527635 R60.0 likely related to infection will check at f/u Diabetes mellitus 920988 09 E11.9 [id number] Jae Trinidad [facility] [address] [facility],[place] [facility] [address] 05/22/2019 15:17:18 05/22/2019 16:39:28 Cellulitis of lower leg 219736469 L03.119 much improved will extend abx by another week, but may stop after 3 days if 100% resolved fu if sx change or worsen otherwise just as needed Hypertensive disorder 38 716253 I10 BP check in 3 weeks after infection resolved triam/hctz doesn't seem to be controllin g BP, but he is tolerating it so we will continue for now Edema of l ower extremity 918522392 R60.0 swelling is better Diabetes mellitus 986119 09 E11.9 [id number] Jae Trinidad [facility] [address] [facility],[place] [address] 06/10/2019 13:35:12 06/10/2019 15:11:46 Essential hypertension 56720579 I10 Body mass index 40+ - severely obese 648475710 Z68.42 Cellulitis 431872277 L03 .90 appears resolved [id number] Jae Trinidad [facility] [address] [facility],[place] [address] 07/01/2019 15:12:35 07/01/2019 16:07:46 Hypertensive disorder 52814766 I10 the pt reporting high BP and high in office side effects to current medication will switch medication Carpal enriqueta hilda syndrome 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 Solorzano [id number] Jae Trinidad [facility] [address] [facility],[place] [address] 07/23/2019 13:29:45 07/23/2019 13:58:18 Hypertensive disorder 97272878 I10 will f/u after a few weeks and see if BP continues to come down patient told to take pill as prescribed [id number] Jae Trinidad [facility] [address] [facility],[place] [address] 08/19/2020 10:52:12 08/19/2020 14:32:31 Hypertensive disorder 19772010 I10 will add spironolac tone 25mg Diabetes mellitus 513720 09 E11.9 fantastic a1c at 5.3 last time will need new lab Fatigue 09888125 R53.83 we will also get some am cortisol level Morbid obesity 779221568 E66.01 discussion re need for wgt loss Sutured skin wound 39174 05614 02 T14.90XD still having the same issue with the abdominal wound not healing will add mupirocin Edema of l ower extremity 713271520 R60.0 persisitan t and chronic [id number] Jae Trinidad [facility] [address] [facility],[place] [address] 02/22/2021 14:49:04 02/22/2021 15:51:32 Hyperlipidemia 45109584 E78.5 DISCUSSED LAST TIME he is doing surprising ly well Diabetes mellitus 196705 09 E11.9 fantastic a1c at 5.3 last time will need new lab Hypertensive disorder 38 778303 I10 will add spironolac tone 25mg Onychomyco sis of toenails 105487360 B35.1 [id number] [facility] [address] [facility],[place] [address] 07/07/2021 11:10:22 07/07/2021 14:14:51 Hypertensive disorder 66002987 I10 will cont spironolac tone 25mg but will cut the pill in half as he did not tolerate 25mg Morbid obesity 833599842 E66.01 discussion re need for wgt loss Diabetes mellitus 955961 09 E11.9 fantastic a1c at 5.3 last time will need new lab Edema 251600517 R60.9 see below Edema of l ower extremity 552987454 R60.0 persisitan t and chronic [id number] [facility] [address] [facility],[place] [address] 11/03/2021 11:10:16 11/03/2021 12:48:30 Diabetes mellitus 51725088 E11.9 fantastic a1c at 5.3 last time will need new lab Hyperlipidemia 24917789 E78.5 DISCUSSED LAST TIME he is doing surprising ly well Hypertensive disorder 38 925947 I10 we will need to try a diff med due to intoleranc e Edema of l ower extremity 295122435 R60.0 persisitan t and chronic Fatigue 60705690 R53.83 we will also get some am cortisol level Low back pain 008648850 M54.50 [id number] [facility] [address] [facility],[place] [address] 02/02/2022 11:22:19 02/02/2022 12:01:56 Hypertensive disorder 47068864 I10 we will need to try a diff med due to intoleranc e Diabetes mellitus 035089 09 E11.9 fantastic a1c at 5.3 last time will need new lab Screening for malignant neoplasm of colon 998231655 Z12.11 not interested Edema of l ower extremity 851415724 R60.0 persisitan t and chronic Hypotestosteronism 98994 77650 104 R79.89 we will repeat the testostero ne level next month [id number] Jae Trinidad [facility] [address] [facility] [place] [address] 05/13/2022 13:46:44 05/13/2022 14:35:09 Hypertensive disorder 43520443 I10 we will need to try a diff med due to intoleranc e Diabetes mellitus 813220 09 E11.9 fantastic a1c at 5.3 last time will need new lab Edema of l ower extremity 417013694 R60.0 persisitan t and chronic Morbid obesity 452656702 E66.01 discussion re need for wgt loss Pain of mu ltiple joints 34271686 M25.50 Fatigue 28670698 R53.83 we will also get some am cortisol level Mass of sk in of abdomen 5875643356 4315131 R22.2 see photo [id number] Jae Trinidad [facility] [address] [facility],[place] [address] 08/01/2022 10:45:20 08/01/2022 15:47:25 Hypertensive disorder 95810623 I10 we will need to try a diff med due to intoleranc e Hypotestosteronism 86046 64581 104 R79.89 we will repeat the testostero ne level next month [id number] Jae Trinidad [facility] [address] [facility],[place] [address] 11/16/2022 11:11:24 11/16/2022 12:08:33 Diabetes mellitus 40835913 E11.9 fantastic a1c at 5.3 last time will need new lab Hyperlipidemia 33662322 E78.5 DISCUSSED LAST TIME he is doing surprising ly well Hypertensive disorder 38 900924 I10 we will need to try a diff med due to intoleranc e Hypotestosteronism 21932 22490 104 R79.89 we will repeat the testostero ne level next month Lyme disease 13625806 A6 9.20 will follow up Non-healin g surgical wound 181514650 T81.89XD [id number] Jae Trinidad [facility] Internal Medicine [address] [facility],[place] [address] 02/20/2023 08:48:15 02/20/2023 15:01:17 Hypertensive disorder 67458216 I10 we will need to try a diff med due to intoleranc e Open wound of anterior abdominal wall 035024894 S31.109A will try topical mupirocin Hypotestosteronism 71169 72228 104 R79.89 we will repeat the testostero ne level next month Hypogonadism 69049236 E2 9.1 Edema 793492788 R60.9 see below Diabetes mellitus 038303 09 E11.9 fantastic a1c at 5.3 last time will need new lab Deficiency of vitamin D3 203673692 E55.9 [id number] Jae Trinidad [facility] Internal Medicine [address] [facility], [place] [address] 06/07/2023 08:49:03 06/07/2023 14:25:40 Insomnia 542659746 G47.09 will start on seroquel Type 2 lexie betes mellitus 23314857 E11.9 needs to fu with labs, non-compli ant Obesity 734493534 E66.01 not working on diet Depressive disorder 3548 9007 F32.0 will try buspar Anxiety 13910145 F41.1 will trial buspar TID Hypotestosteronism 96699 44466 104 R79.89 will set up with endocrine Fatigue 47693908 R53.83 will set up with sleep medicine referral [id number] Jae Trinidad [facility] Internal Medicine [address] [facility],[place] [address] 08/09/2023 13:21:20 08/09/2023 14:20:31 Depression screening 568476302 Z13.31 Neg Screening Non-healin g surgical wound 557504449 T81.89XD Small lola l bacterial overgrowth syndrome 510354449 K63.8219 wondering if he wants to try this treatment Insomnia 170890137 G47.0 9 Abdominal pain 26163925 R10.9 [id number] Jae Trinidad [facility] Internal Medicine [address] [facility],[place] [address] 09/06/2024 11:42:09 09/06/2024 14:00:07 Anxiety 34453294 F41.1 due to his ongoing symptoms Depressive disorder 3548 9007 F32.0 situationa l as above Hyperlipidemia 17463687 E78.5 DISCUSSED LAST TIME Hypertensive disorder 38 852372 I10 we will need to try a diff med due to intoleranc e Hypotestosteronism 80158 63884 104 R79.89 we will repeat the testostero ne level next month Type 2 lexie betes mellitus 72311436 E11.9 Depression screening 171 761677 Z13.31 Neg Screening Pain of mu ltiple joints 60858512 M25.50 921124 Fatigue 65352531 R53.83 86298780 we will also get some am cortisol level [id number] Jae Trinidad, [facility] Internal Medicine [address] [facility],[place] [address] 12/09/2024 08:43:09 12/09/2024 12:11:24 Hypertensive disorder 52362483 I10 we will need to try a diff med due to intoleranc e Fatigue 16629236 R53.82 047912 we will also get some am cortisol level Health Concerns Section Related Observation LastModified by Organization Detai ls LastModified Time None Recorded Concern Status LastModified by Organization Details LastModified Time None Recorded Advance Directives Directive None Recorded Payers Insurance Date Sequence Insurance Name Policy Number Policy Mao Covered Member ID Mao Member ID Guarantor Name 12/09/2024 1 [place] - [facility] PRIOR TO 07/02/2022 - [facility] (MEDICAID) Marcellus Dominguez [id number] Marcellus Dominguez 12/09/2024 1 [place]: [facility] Marcellus Dominguez [id number] Marcellus Dominguez Notes Date Note Type Note Provider Name and Address Organization Details Recorded Time 023 text/ht ml Care Management - DiabetesReported by PatientHPIFor self care, patient reportsseeing eye doctor yearly for dilated eye exam,checking feet regularly,normal range of home blood sugars (in the low 100s), andno side effects from medications. For associated symptoms, patient reportssymptoms are usually well controlled,no fatigue,no dizziness,no excessive sweating,no headaches,no confusion,no increased thirst,no increased appetite,no increased urination,no blurred vision,no numbness of feet, andno calluses on feet. Care Management - HypertensionReported by PatientHPIFor self care, patient reportsnot under emotional stress. For severity, patient reportssymptoms are improvinganddoes not interfere with daily activities. For associated symptoms, patient reportsno dizziness,no lightheadedness,no chest pain,no shortness of breath,no palpitations,no edema,no calf muscle cramps,no blurred vision,no confusion,no headaches, andno fatigue.ROS as noted in the HPI patient is evaluated via tele/video assessment per patient consent during current pandemic Jae Trinidad DO [address] [place] [address], [address], [facility] Internal Medicine 02/20/2023 14:57:38 024 text/ht ml ROS as noted in the HPI c.o insomnia and anxiety The patient is participating in this appointment via telemedicine communication with a phone call/video calling service (Ryla)The patient consents to use of these platforms in place of an in-person appointment due to either sick symptoms the patient is presenting with or current office closure due to COVID exposure in order to keep our office staff and patients safe The patient presents to the office today for follow-up management of their ongoing depression/anxiety symptoms The patient's symptoms started about 2 mosThe patient endorses:FatigueSleep changes/insomniaLittle pleasure in doing thing they once found enjoyableApatheticPsychomotor agitation/retardationBrain Fog The patient endorses extensive worry about his T levels and his healthThe patient also reports easy irritability, difficulty with concentrating or making decisions, restlessnessThis is impacting their life by excess worry and poor sleep After discussion patient for different interventions including cognitive behavioral therapy, medications, referral to therapist or psychiatrist the patient has agreed to medication adjustment NARCISO KERN [address] [facility], [place], [address], [facility] Internal Medicine 06/07/2023 11:02:03 024 text/ht ml ROS as noted in the HPI relates not feeling wellfeels weak still not feeling that he is not sleeping wellstates feels small lumps iin the fat of his stomachstates fell and hit the right shoulderdiscussed lab work from dr river all normal so far Jae Trinidad, DO [address] [facility], [place], [address], [facility] 08/09/2023 13:57:20 025 text/ht ml Care Management - DiabetesReported by PatientHPIFor self care, patient reportsseeing eye doctor yearly for dilated eye exam,checking feet regularly,normal range of home blood sugars (in the low 100s), andno side effects from medications. For associated symptoms, patient reportssymptoms are usually well controlled,no fatigue,no dizziness,no excessive sweating,no headaches,no confusion,no increased thirst,no increased appetite,no increased urination,no blurred vision,no numbness of feet, andno calluses on feet. Care Management - HypertensionReported by PatientHPIFor self care, patient reportsnot under emotional stress. For severity, patient reportssymptoms are improvinganddoes not interfere with daily activities. For associated symptoms, patient reportsno dizziness,no lightheadedness,no chest pain,no shortness of breath,no palpitations,no edema,no calf muscle cramps,no blurred vision,no confusion,no headaches, andno fatigue. Anxiety/DepressionReported by PatientHPIFor severity, patient reportsdenies suicidal ideations,able to maintain relationships, anddoes not interfere with activities of daily living. For context, patient reportsno major life stressors. For associated symptoms, patient reportsdenies homicidal ideations,no significant weight gain,no significant weight loss,no visual/auditory hallucinations,no delusions,no shortness of breath,mood good,no anxiety,no crying spells,no panic,no isolation,sleeping well,appetite good,energy good,no apathy, andmaintaining functionality. Care Management - HyperlipidemiaReported by PatientHPIFor control, patient reportsusually well controlled,improving, andat goal. For complications, patient reportsno coronary artery disease,no heart attack,no cardiovascular disease,no pancreatitis, andno stroke.ROS as noted in the HPI here under a lot of stresshas stated that he has been feeling awful and is fixated on thinking he has hiv or syphilis he has stopped all his meds on his own Jae Trinidad DO [address] [place], [address], [facility] Internal Medicine 09/06/2024 12:08:39 025 text/ht ml ROS as noted in the HPI patient is evaluated via tele/video assessment per patient consentduring current pandemicrelates feeling tiredfeels shoulders are sore and relates he ordered some stem cells Jae Trinidad DO [address] [place], [address], [facility] Internal Medicine 12/09/2024 11:32:27
== END ==
LOC: HO.HSM 11:33
PROVIDERS: PCP Internal Medicine; Visit Provider Psychiatry & Neurology Neurology
DX: G93.40 Encephalopathy, unspecified (principal)
CPT/HCPCS: 99214